=== PATIENT | female | born 1940 | race Caucasian/White ===

== ENCOUNTER → 2018-03-30 11:18 | Outpatient (CLI) | payer MEDICARE, BC, SELFPAY ==
--- NOTE | 2018-03-30 11:22 | DI.RAD.S_ITS ---
PROCEDURE: XR FOOT LT MIN 3V INDICATIONS: LEFT FOOT PAIN TECHNIQUE: 3 views of the foot were acquired. COMPARISON: None. FINDINGS: Bones: Partially visualized distal left fibular fracture. In the left foot itself there are no fractures or dislocations. No suspicious bony lesions. Soft tissues: No tibiotalar joint effusion. Achilles tendon appears normal. IMPRESSION: No acute fractures or dislocations in the left foot. Distal left fibular fracture better seen on today's dedicated left ankle radiographs. Dictated by: Karlos Chaves M.D. on 03/30/2018 at 13:37 Approved by: Karlos Chaves M.D. on 03/30/2018 at 13:38
--- NOTE | 2018-03-30 11:22 | DI.RAD.S_ITS ---
PROCEDURE: XR ANKLE LT MIN 3V INDICATIONS: LEFT ANKLE PAIN TECHNIQUE: 3 views of the ankle were acquired. COMPARISON: None. FINDINGS: Bones: Spiral distal left fibular fractures extending to the ankle mortise. Ankle mortise is otherwise intact. Ankle mortise is normally aligned. No suspicious bony lesions. Soft tissues: No tibiotalar joint effusion. Achilles tendon appears normal. IMPRESSION: Oblique distal left fibular fracture extending to the ankle mortise. Dictated by: Karlos Chaves M.D. on 03/30/2018 at 13:38 Approved by: Karlos Chaves M.D. on 03/30/2018 at 13:39
== END ==
PROVIDERS: Family Provider Family Medicine; PCP Family Medicine; Visit Provider Physician Assistant
DX: S82.432A Displaced oblique fracture of shaft of left fibula, initial encounter for closed fracture (principal); M79.672 Pain in left foot
CPT/HCPCS: 73610; 73630

== ENCOUNTER → 2018-04-17 10:54 | Outpatient (CLI) | payer MEDICARE, OTHER, SELFPAY ==
--- NOTE | 2018-04-17 10:56 | DI.RAD.S_ITS ---
PROCEDURE: XR ANKLE LT MIN 3V INDICATIONS: Fibula fracture TECHNIQUE: 3 views of the ankle were acquired. COMPARISON: [facility], CR, XR ANKLE LT MIN 3V, 03/30/2018, 11:18. FINDINGS: Bones: No dislocations. There is a diagonal fracture previously present 03/30/18 involving the distal fibula, at about the level of the ankle mortise joint as was previously the case Ankle mortise is normally aligned. No suspicious bony lesions. Soft tissues: No tibiotalar joint effusion. Achilles tendon appears normal. IMPRESSION: Distal fibular metadiaphyseal diagonal fracture appears unchanged from the initial set of films identifying an abnormality 03/30/18. Slight blurring of the fracture margins suggests a small degree of interval healing. Dictated by: Moises Walker M.D. on 04/17/2018 at 11:29 Approved by: Moises Walker M.D. on 04/17/2018 at 11:31
--- NOTE | 2018-04-17 10:56 | DI.RAD.S_ITS ---
PROCEDURE: XR FOOT LT MIN 3V INDICATIONS: PAIN AFTER INJURY 2 WEEKS AGO TECHNIQUE: 3 views of the foot were acquired. COMPARISON: [facility], CR, XR FOOT LT MIN 3V, 03/30/2018, 11:18. FINDINGS: Bones: No definite fractures or dislocations. On one of the 3 views there is a subtle lucency at the medial cortex of the base of the fourth metatarsal head, possibly a subacute fracture. No suspicious bony lesions. Soft tissues: No tibiotalar joint effusion. Achilles tendon appears normal. IMPRESSION: The area of injury/maximal tenderness is not defined, and there is a subtle vague lucency at the medial fourth metatarsal head base, potentially a subacute fracture. Please correlate for where the maximal tenderness is related to this particular finding. Note: Please also review the ankle plain film report from today. There is a diagonal fracture involving the distal fibula. Dictated by: Moises Walker M.D. on 04/17/2018 at 11:24 Approved by: Moises Walker M.D. on 04/17/2018 at 11:27
== END ==
PROVIDERS: Family Provider Family Medicine; PCP Family Medicine; Visit Provider Family Medicine
DX: S89.392A Other physeal fracture of lower end of left fibula, initial encounter for closed fracture (principal)
CPT/HCPCS: 73610; 73630

== ENCOUNTER → 2018-10-02 10:31 | Outpatient (CLI) | payer MEDICARE, OTHER, SELFPAY ==
--- NOTE | 2018-10-02 | DI.MG.S_ITS ---
BILATERAL DIGITAL SCREENING MAMMOGRAM 3D/2D WITH CAD: 10/02/2018 CLINICAL: Routine screening. Comparison is made to exams dated: 04/21/2016 mammogram, 01/13/2015 mammogram, and 10/26/2013 mammogram - [facility]. The tissue of both breasts is heterogeneously dense. This may lower the sensitivity of mammography. Current study was also evaluated with a Computer Aided Detection (CAD) system. There are benign post operative findings in both breasts. There also are benign calcifications in both breasts. No significant masses, calcifications, or other findings are seen in either breast. There has been no significant interval change. IMPRESSION: There is no mammographic evidence of malignancy. A 1 year screening mammogram is recommended. This exam was interpreted at Station ID: [id number]. NOTE: For mammograms, a report in lay terms will be sent to the patient. Approximately 15% of breast malignancies will not be visualized mammographically. In the management of a palpable breast mass, a negative mammogram must not discourage biopsy of a clinically suspicious lesion. Electronically Signed By: Milton mancilla/diana:10/03/2018 13:05:25 letter sent: Normal Exam ACR BI-RADS Category 2: Benign Finding(s) 3342F
== END ==
PROVIDERS: Family Provider Family Medicine; PCP Family Medicine; Visit Provider Family Medicine
DX: Z12.31 Encounter for screening mammogram for malignant neoplasm of breast (principal)
CPT/HCPCS: 77063; 77067

== ENCOUNTER → 2021-07-28 12:33 | Outpatient (CLI) | payer BC, MEDICARE, SELFPAY ==
--- NOTE | 2021-07-28 12:35 | DI.MG.S_ITS ---
BILATERAL DIGITAL SCREENING MAMMOGRAM 3D/2D WITH CAD: 07/28/2021 CLINICAL: Routine screening. Comparison is made to exams dated: 10/02/2018 mammogram, 04/21/2016 mammogram, and 01/13/2015 mammogram - [facility]. The tissue of both breasts is heterogeneously dense. This may lower the sensitivity of mammography. Current study was also evaluated with a Computer Aided Detection (CAD) system. There are benign calcifications in both breasts. There also are benign post operative findings in both breasts. No significant masses, calcifications, or other findings are seen in either breast. There has been no significant interval change. IMPRESSION: BENIGN There is no mammographic evidence of malignancy. A 1 year screening mammogram is recommended. This exam was interpreted at Station ID: [id number]. NOTE: For mammograms, a report in lay terms will be sent to the patient. Approximately 15% of breast malignancies will not be visualized mammographically. In the management of a palpable breast mass, a negative mammogram must not discourage biopsy of a clinically suspicious lesion. Electronically Signed By: Elizabeth bowden/diana:07/28/2021 13:09:28 letter sent: Normal Exam ACR BI-RADS Category 2: Benign Finding(s) 3342F
== END ==
PROVIDERS: Family Provider Family Medicine; PCP Family Medicine; Referring Provider Family Medicine; Visit Provider Family Medicine
DX: Z12.31 Encounter for screening mammogram for malignant neoplasm of breast (principal)
CPT/HCPCS: 77063; 77067

== ENCOUNTER → 2023-01-10 11:54 | Outpatient (CLI) | payer BC, MEDICARE, SELFPAY ==
--- NOTE | 2023-01-10 11:56 | DI.RAD.S_ITS ---
PROCEDURE: XR LUMBAR SPINE 2-3V INDICATIONS: back pain TECHNIQUE: 3 views of the lumbar spine were acquired. COMPARISON: [facility], , L-SPINE 2-3 VIEWS, 11/18/2008, 18:20. FINDINGS: Bones: 5 [id number] vertebrae are present. Slight rightward right curvature. Exaggerated lordosis. Grade 1 anterolisthesis L5 on S1 due to a pars defect. Mild disc height loss at L4-5, L1-2 and L5-S1. Soft tissues: Overlying bowel gas pattern is normal. No suspicious soft tissue calcifications. IMPRESSION: Stable degenerative disc disease, predominantly of L4-5 and L5-S1. Grade 1 anterolisthesis of L5 on S1 secondary to pars defect. Dictated by: Sarbjit Anaya M.D. on 01/10/2023 at 13:23 Approved by: Sarbjit Anaya M.D. on 01/10/2023 at 13:28
--- NOTE | 2023-01-10 11:56 | DI.RAD.S_ITS ---
PROCEDURE: XR THORACIC SPINE 3V INDICATIONS: back pain TECHNIQUE: 3 views of the thoracic spine were acquired. COMPARISON: None. FINDINGS: Bones: No fractures or dislocations. No suspicious bony lesions. 12 pairs of ribs are noted, and appear intact where visualized. Mild, multilevel degenerative disc disease. Soft tissues: No paravertebral stripe thickening. IMPRESSION: No acute abnormality. Mild, multilevel degenerative disc disease. Dictated by: Sarbjit Anaya M.D. on 01/10/2023 at 13:29 Approved by: Sarbjit Anaya M.D. on 01/10/2023 at 13:29
[2023-01-10 12:46] LABS: Add Manual Diff / Slide Review NO; Basophils Absolute Auto 0 /uL (0-100); Basophils Percent Auto 0.3 % (0-2); Eosinophils Absolute Auto 100 /uL (0-450); Eosinophils Percent Auto 1.9 % (2-4); Hematocrit 41.1 % (36-46); Hemoglobin 13.8 g/dL (12.0-16.0); Lymphocytes Absolute Auto 2500 /uL (1100-4500); Lymphocytes Percent Auto 33.1 % (25-40); Mean Corpuscular HGB Conc 33.6 % (30-36); Mean Corpuscular Volume 89.4 fL (80-100); Monocytes Absolute Auto 500 /uL (0-900); Monocytes Percent Auto 6.4 % (3-14); Neutrophils Absolute Auto 4300 /uL (1500-7000); Neutrophils Percent Auto 58.3 % (50-75); Platelet Count 198 X10^3/uL (150-400); Red Cell Distribution Width 12.7 % (11.6-14.8); White Blood Cell Count 7.4 X10^3/uL (4.5-11.0)
[2023-01-10 13:00] LABS: Alanine Aminotransferase 19 IU/L (<35); Albumin 4.7 g/dL (3.5-5.0); Albumin Globulin Ratio 1.3 (1.0-2.8); Alkaline Phosphatase 72 U/L (38-126); Aspartate Aminotransferase 24 IU/L (14-36); BUN Creatinine Ratio 43.6 (6-22); Bilirubin Total 0.9 mg/dL (0.2-1.3); Blood Urea Nitrogen 24 mg/dL (7-17); Calcium 9.5 mg/dL (8.4-10.2); Carbon Dioxide 26 mmol/L (22-32); Chloride 104 mmol/L (98-107); Cholesterol 214 mg/dL (140-199); Estimated Glomerular Filt Rate > 60 mL/min (>60); Globulin 3.6 g/dL (1.7-4.1); Glucose 118 mg/dL (80-110); HDL Cholesterol 69 mg/dL (40-60); HEMOLYSIS < 15 (0-50); LDL Cholesterol Calculated 119 mg/dL (<100); Potassium 4.6 mmol/L (3.4-5.1); Sodium 139 mmol/L (137-145); Total Protein 8.3 g/dL (6.3-8.2); Triglycerides 131 mg/dL (35-150)
[2023-01-10 13:30] LABS: Thyroid Stimulating Hormone 1.68 uIU/mL (0.47-4.68)
== END ==
PROVIDERS: Family Provider Family Medicine; PCP Family Medicine; Referring Provider Family Medicine; Visit Provider Family Medicine
DX: M51.37 Other intervertebral disc degeneration, lumbosacral region (principal); M51.34 Other intervertebral disc degeneration, thoracic region; M51.36 Other intervertebral disc degeneration, lumbar region; M43.17 Spondylolisthesis, lumbosacral region; M54.50 Low back pain, unspecified; I10 Essential (primary) hypertension
CPT/HCPCS: 36415; 72072; 72100; 80053; 80061; 84443; 85025

== ENCOUNTER → 2024-04-12 16:17 | Outpatient (CLI) | payer OTHER, SELFPAY ==
--- NOTE | 2024-04-12 16:21 | DI.RAD.S_ITS ---
PROCEDURE: XR THORACIC SPINE 3V INDICATIONS: thoracic back pain TECHNIQUE: 3 views of the thoracic spine were acquired. COMPARISON: [facility], CR, XR THORACIC SPINE 3V, 01/10/2023, 11:54. FINDINGS: Bones: No fractures or dislocations. No suspicious bony lesions. 12 pairs of ribs are noted, and appear intact where visualized. Multilevel degenerative disc space narrowing. Soft tissues: No paravertebral stripe thickening. IMPRESSION: Multilevel degenerative disc space narrowing. Dictated by: Chandrika Rodriguez M.D. on 04/12/2024 at 17:12 Approved by: Chandrika Rodriguez M.D. on 04/12/2024 at 17:12
[2024-04-12 17:33] LABS: Add Manual Diff / Slide Review NO; Basophils Absolute Auto 0 /uL (0-100); Basophils Percent Auto 0.3 % (0-2); Eosinophils Absolute Auto 100 /uL (0-450); Eosinophils Percent Auto 1.6 % (2-4); Hematocrit 34.7 % (36-46); Hemoglobin 11.9 g/dL (12.0-16.0); Lymphocytes Absolute Auto 1500 /uL (1100-4500); Lymphocytes Percent Auto 24.5 % (25-40); Mean Corpuscular HGB Conc 34.3 % (30-36); Mean Corpuscular Hemoglobin 31.8 PG (26-34); Mean Corpuscular Volume 92.6 fL (80-100); Monocytes Absolute Auto 600 /uL (0-900); Monocytes Percent Auto 9.6 % (3-14); Neutrophils Absolute Auto 3800 /uL (1500-7000); Platelet Count 218 X10^3/uL (150-400); Red Blood Cell Count 3.74 X10^6/uL (4.0-5.2)
[2024-04-12 17:57] LABS: Alanine Aminotransferase 25 IU/L (<35); Albumin 4.2 g/dL (3.5-5.0); Albumin Globulin Ratio 1.4 (1.0-2.8); Alkaline Phosphatase 74 U/L (38-126); Aspartate Aminotransferase 28 IU/L (14-36); BUN Creatinine Ratio 38.8 (6-22); Bilirubin Total 0.6 mg/dL (0.2-1.3); Blood Urea Nitrogen 26 mg/dL (7-17); Calcium 9.6 mg/dL (8.4-10.2); Carbon Dioxide 29 mmol/L (22-32); Chloride 107 mmol/L (98-107); Estimated Glomerular Filt Rate > 60 mL/min (>60); Globulin 3.1 g/dL (1.7-4.1); Glucose 123 mg/dL (80-110); HEMOLYSIS 23 (0-50); Potassium 3.4 mmol/L (3.4-5.1); Sodium 140 mmol/L (137-145); Total Protein 7.3 g/dL (6.3-8.2)
== END ==
PROVIDERS: Family Provider Family Medicine; PCP Family Medicine; Referring Provider Family Medicine; Visit Provider Family Medicine
DX: M54.6 Pain in thoracic spine (principal)
CPT/HCPCS: 36415; 72072; 80053; 85025

== ENCOUNTER 2024-05-28 19:05 | Emergency (ER) | payer OTHER, SELFPAY ==
[2024-05-28 19:20] VITALS: BP 153/71; PULSE 91; RESP 16; TEMP 37.4; O2SAT 97; BMI 24.3
[2024-05-28] MEDS: HYDROCODONE/ACET 5/325 TABLET 1 TAB PO (21:03)
[2024-05-28 22:34] VITALS: PULSE 96; O2SAT 97
[2024-05-28 22:35] VITALS: BP 161/70; PULSE 96; O2SAT 98
--- NOTE | 2024-05-28 22:50 | ED_ITS ---
HPI - Back Pain/Injury General Chief Complaint: Back Pain/Injury Stated Complaint: neck and back px Time Seen by Provider: 05/28/24 22:50 Source: patient and family Mode of arrival: Ambulatory Limitations: no limitations History of Present Illness HPI Narrative: 84-year-old female history hypertension, sciatica, herniated discs, patient had a fall in February had a fractured her left humerus persistent back pain. Patient has had persistent pain they have stopped her gabapentin 4 days ago, they have been weaning down her Glasgow she has had a half tablet for about the last 2 weeks. Patient has not had any other witnessed falls. She lives independently but has family with her on all times. Patient has been doing physical therapy on her left upper extremity and this tires her out quite a bit. Family denies any fevers or chills no chest pain or shortness of breath no nausea or vomiting no GI or urinary symptoms. She has had some swelling in her legs that started in February but not worsened. Patient has had x-ray imaging of her thoracic spine but no CT imaging. She presents with her daughters today as they have noted she was becoming more kyphotic and has increased pain when trying to lift her head. No other new neurologic symptoms reported. Related Data Home Medications Medication Instructions Recorded Confirmed ibuprofen 200 mg tablet (Advil) 400 mg PO Q4H 04/12/24 04/12/24 docusate sodium 100 mg capsule 200 mg PO DAILY PRN 05/28/24 (Stool Softener) Previous Rx's Medication Instructions Recorded hydrocodone 5 mg-acetaminophen 325 1 tab PO BID PRN pain #60 tabs 05/07/24 mg tablet furosemide 40 mg tablet 40 mg PO DAILY #90 tabs 05/28/24 hydroxyzine HCl 10 mg tablet See Rx Instructions PO TID PRN 05/28/24 anxiety #30 tabs hydrocodone 5 mg-acetaminophen 325 1 tab PO QID PRN pain #10 tabs 05/29/24 mg tablet lorazepam 0.5 mg tablet (Ativan) 0.5 mg PO TID PRN anxiety #5 tabs 05/29/24 Allergies Allergy/AdvReac Type Severity Reaction Status Date / Time SULFA Allergy Severe rash Uncoded 04/12/24 15:32 Review of Systems Review of Systems ROS Unobtainable: All systems reviewed & are unremarkable except as noted in HPI and below Patient History Medical History Inflamed seborrheic keratosis Low back pain with sciatica Vision disorder Fibroids Herniated disc History of restless legs syndrome (~2004) Acne (~1959) Mumps (~1960) Measles (~1949) Chicken pox Hemorrhoid (~1964) Surgical History History of breast biopsy (~1981) Status post hemorrhoidectomy (~1984) Status post hysterectomy (~1981) Family History Father Stroke Mother No problems noted. Social History marital status: Smoking Status: Never smoker alcohol intake: current Smoking Status: Never smoker Exam Narrative Exam Narrative: GEN: Patient appears in mild distress. HEAD: No evidence of trauma, no raccoon/[place] sign. NECK: Nontender, painless range of motion, trachea midline EYES: PERRLA, EOMI ENT: External inspection normal, trachea is midline, TM's are normal no hemotypanum, Nares are clear, no septal hematoma, no dental or oral injury, airway is normal and with normal occlusion, No bony tenderness RESP: Chest is nontender and has symmetric movement, no ecchymosis, breath sounds are normal no crackles, wheezes or rales CVS: Heart sounds are normal, no murmur noted, No JVD. ABG/GI: Nontender, soft, normal bowel sounds, no distention, no organomegaly, pelvic rock is [negative/positive] GENIT, RECTAL: Normal external inspection, normal rectal tone, [prostate is in normal position or no vaginal bleeding] NEURO: Oriented AOx3, neuro is grossly intact, sensation and motor is normal all 4 extremities moving, cranial nerves II through XII are intact, GCS is[default value] PSYCH: Normal mood and affect SKIN: Intact, warm and dry, no crepitus and without decubitus BACK: No CVA tenderness, no cervical vertebral tenderness patient has some mild midthoracic tenderness, no lumbar tenderness, patient is quite kyphotic, she is able to flex and extend her neck and rotate. No step-off's, no crepitus EXT: Patient does have little bit difficulty lifting her left upper extremity they states been like that is since her humeral fracture in February she was following with PT. [employer] are equal bilaterally. Hips are nontender, trace pedal edema bilaterally. Patient is able to lift both legs independently without issue. Unable to lift her right arm without issue. She can lean forward without much issue. Initial Vital Signs Initial Vital Signs: Vital Signs Temperature 99.3 F 05/28/24 19:20 Pulse Rate 91 H 05/28/24 19:20 Respiratory Rate 16 05/28/24 19:20 Blood Pressure 153/71 H 05/28/24 19:20 Pulse Oximetry 97 05/28/24 19:20 Oxygen Delivery Method Room Air 05/28/24 19:20 Course Orders Ordered: ED Orders 05/28/24 23:19 CT cervical spine wo con Stat CT head/brain wo con Stat CT thoracic spine wo con Stat Discontinued Medications Hydrocodone Bitart/Acetaminophen (Hydrocodone/Acet 5/325 Tablet) 1 tab PO NOW ONE Stop: 05/28/24 20:59 Last Admin: 05/28/24 21:03 Dose: 1 tab Documented By: ES Lorazepam (Lorazepam 0.5 Mg Tablet) 0.5 mg PO NOW ONE Stop: 05/28/24 23:20 Last Admin: 05/28/24 23:37 Dose: 0.5 mg Documented By: SB Vital Signs Vital signs: Vital Signs - 8 hr 05/28/24 22:34 05/28/24 22:35 05/28/24 22:35 Pulse Rate 96 H 96 H Respiratory Rate Blood Pressure 161/70 H Pulse Oximetry 97 98 Oxygen Delivery Method 05/28/24 23:00 05/28/24 23:33 05/29/24 00:36 Pulse Rate 104 H 98 H 87 Respiratory Rate Blood Pressure Pulse Oximetry 97 98 98 Oxygen Delivery Method 05/29/24 00:37 05/29/24 00:37 05/29/24 00:50 Pulse Rate 87 87 Respiratory Rate 16 Blood Pressure 141/64 H 141/64 H Pulse Oximetry 98 98 Oxygen Delivery Method Room Air MDM - Back Pain/Injury Medical Records Medical records narrative: After discussion with patient and they are concerned about her worsening kyphosis no known recent fractures they are unsure if she ever had any imaging of her cervical spine or lumbar spine after her fall other than x-rays here locally. Discussed with patient family obtain head CT C-spine and thoracic spine, her pain has increased somewhat but she has also had a significant decrease with stopping her gabapentin 4 days ago and weaning down her [place] as well. CT head Cervical spine CT Thoracic spine CT [facility] Narrative Medical decision making narrative: Patient had a dose of Glasgow here, she asked for something for anxiety and was given a 0.5 mg Ativan. Patient's family had called she has had slowly worsening kyphosis, weakness and generally discomfort in her neck and thoracic spine. Patient has not had any recent trauma or injury but did have a fall in February that caused humeral fracture and has been following with PT. She has been following regularly with her physician they have been weaning down her medications which may explain her increase in pain but family notes she just becomes more kyphotic over time. No acute neurologic changes shared at bedside by patient or family. Head CT shows no acute intracranial change, cerebral volume loss for age resultant. Cervical spine shows no displaced fracture or traumatic subluxation. CT thoracic spine shows no compression deformity there is osteoporosis by Hounsfield unit criteria. Discussed with patient and family decrease the gabapentin could potentially worsen patient's symptoms in the last 4 days. Sometimes this medication can have little bit of withdrawal affect although does not seem to be the case for the patient. Discussed can do a short increased back to 1 tablet of Glasgow versus 1/2 and then try weaning down. Would recommend they follow up with your physician about the best way to do this. Family decided to hold off on restarting gabapentin did have some side effects. She had have a dose of oral Ativan 0.5 mg which was helpful so we will give a very brief prescription for this. They have calls out to Dr. Mclean's associates as he is out of town but they will talk over medication management with them. Discharge Plan Departure Patient Disposition: Home Clinical Impression: Cervical pain (neck), Back pain, thoracic Activity Restrictions/Additional Instructions: Please follow-up with your physician for recheck. Talk with your physician about managing her medications, in the short term you can increase your Glasgow back to 1 tablet instead of 1/2 tablet. This medication can make you sleepy do not drive, perform hazardous activities or make any major decisions while taking it. This medication will make you constipated please take a stool softener once to twice daily until stools are soft and regular. If helpful you can take Ativan tablet every 8 hours for muscle relaxation. This medication in combination with narcotics can make you very sleepy and increase your fall risk. Use with caution. Prescription sent to [facility]. Your head CT, cervical spine and thoracic do not show any compression fractures or major changes to the bone. There are degenerative changes present changes that are expected with age. Please return for new changes, new numbness tingling or weakness, new loss of bowel or bladder control or other new or concerning changes. Prescriptions: New hydrocodone-acetaminophen 5-325 mg tablet 1 tab PO QID PRN (Reason: pain) Qty: 10 0RF lorazepam [Ativan] 0.5 mg tablet 0.5 mg PO TID PRN (Reason: anxiety) Qty: 5 0RF No Action docusate sodium [Stool Softener] 100 mg capsule 200 mg PO DAILY PRN Rx Instructions: a few times a week furosemide 40 mg tablet 40 mg PO DAILY Qty: 90 1RF hydroxyzine HCl 10 mg tablet See Rx Instructions PO TID PRN (Reason: anxiety) Qty: 30 0RF Rx Instructions: Take 1 or 2 tablets up to 3 times a day as needed for anxiety ibuprofen [Advil] 200 mg tablet 400 mg PO Q4H hydrocodone-acetaminophen 5-325 mg tablet 1 tab PO BID PRN (Reason: pain) Qty: 60 0RF Referrals: Thad Mclean MD [Primary Care Provider] - Stand Alone Forms: Patient Portal/API
[2024-05-28 23:00] VITALS: PULSE 104; O2SAT 97
--- NOTE | 2024-05-28 23:19 | DI.CT.S_ITS ---
PROCEDURE: CT CERVICAL SPINE WO CON INDICATIONS: remote fall (february), worsening pain, worsenin kyphosis. TECHNIQUE: Noncontrast 3 mm thick sections acquired from the skull base to the T4 level. Sagittal and coronal reformats were then constructed. For radiation dose reduction, the following was used: automated exposure control, adjustment of mA and/or kV according to patient size. COMPARISON: None. FINDINGS: Image quality: Excellent. Bones: No fractures or dislocations. Visualized superior ribs are intact. Mild to moderate, multilevel degenerative disc disease and facet arthrosis. Soft tissues: Prevertebral soft tissues are normal in thickness. No paravertebral hematomas. No apical pneumothoraces. IMPRESSION: No displaced fracture or traumatic subluxation. Dictated by: Sarbjit Anaya M.D. on 05/28/2024 at 23:55 Approved by: Sarbjit Anaya M.D. on 05/28/2024 at 23:56
--- NOTE | 2024-05-28 23:19 | DI.CT.S_ITS ---
PROCEDURE: CT HEAD/BRAIN WO CON INDICATIONS: remote fall (february), worsening pain, worsenin kyphosis. TECHNIQUE: Noncontrast 4.5 mm thick angled axial sections acquired from the foramen magnum to the vertex, with coronal and sagittal reformats. For radiation dose reduction, the following was used: automated exposure control, adjustment of mA and/or kV according to patient size. COMPARISON: None. FINDINGS: Image quality: Diagnostic. CSF spaces: Basal cisterns are patent. No extra-axial fluid collections. The ventricles are symmetric in size and shape. Brain: No intracranial bleeds or masses. There is cerebral volume loss for age, with resultant ventricular and sulcal prominence. There are periventricular and deep white matter chronic small vessel ischemic changes. There is intracranial internal carotid artery atherosclerosis. Skull and face: Calvarium and visualized facial bones appear intact, without suspicious lesions. Sinuses: Visualized sinuses and mastoids are clear. IMPRESSION: No acute intracranial pathology. Dictated by: Sarbjit Anaya M.D. on 05/28/2024 at 23:54 Approved by: Sarbjit Anaya M.D. on 05/28/2024 at 23:54
--- NOTE | 2024-05-28 23:19 | DI.CT.S_ITS ---
PROCEDURE: CT THORACIC SPINE WO CON INDICATIONS: remote fall (february), worsening pain, worsenin kyphosis. TECHNIQUE: Noncontrast 3 mm thick sections acquired through the region of interest in the thoracic spine. Sagittal and coronal reformats were then constructed. For radiation dose reduction, the following was used: automated exposure control. COMPARISON: None. FINDINGS: Image quality: Excellent. Bones: There is normal overall bony alignment. No acute vertebral body compression fractures. No suspicious sclerotic or lytic bony lesions. Central spinal canal is of normal overall caliber. Osteoporosis by Hounsfield units criteria. Soft tissues: No paravertebral masses or hematomas. Visualized posteromedial lungs appear clear. IMPRESSION: No compression deformity. Osteoporosis by Hounsfield units criteria. Dictated by: Sarbjit Anaya M.D. on 05/28/2024 at 23:56 Approved by: Sarbjit Anaya M.D. on 05/28/2024 at 23:57
[2024-05-28 23:33] VITALS: PULSE 98; O2SAT 98
[2024-05-28] MEDS: LORazepam 0.5 MG TABLET PO (23:37)
[2024-05-29 00:36] VITALS: PULSE 87; O2SAT 98
[2024-05-29 00:37] VITALS: BP 141/64; PULSE 87; O2SAT 98
[2024-05-29 00:50] VITALS: BP 141/64; PULSE 87; RESP 16; O2SAT 98
== END 2024-05-29 00:52 | disposition home or self-care (01) ==
PROVIDERS: Emergency Provider Emergency Medicine; Family Provider Family Medicine; PCP Family Medicine
DX: M54.2 Cervicalgia (principal); M54.6 Pain in thoracic spine
CPT/HCPCS: 70450; 72125; 72128; 99283; 99284

== ENCOUNTER 2024-06-02 04:26 | Inpatient (IN) | payer OTHER, SELFPAY ==
[2024-06-02] VITALS (21 sets, daily range): BP systolic 108–198; BP diastolic 42–85; PULSE 81–101; RESP 16–18; TEMP 35.9–36.6; O2SAT 92–99; BMI 24.2
--- NOTE | 2024-06-02 04:34 | ED.GENADULT ---
HPI - General Adult General Chief complaint: Weakness Stated complaint: shoulder- back pain Time Seen by Provider: 06/02/24 04:32 History of Present Illness HPI narrative: Previously healthy 84-year-old woman with shoulder fracture in February requiring surgical intervention. Since then she has been having increasing pain along her spine. Has been on narcotics currently at 3 Vicodin daily, 1 point had been on gabapentin which has recently been discontinued. She has been having increasing anxiety due to pain, anticipation of pain and now likely exacerbated by discontinuing gabapentin. She feels she is crawling out of her skin and her description of her symptoms very much sound like withdrawal rather than severe anxiety. She does not have a lifetime history of anxiety, her family reports that these behaviors are quite new. Because of her pain, recent ER visits and medical care she has not been sleeping well at night has had multiple evenings where she is awake most of the night in the emergency department. Would likely benefit from melatonin 1 mg in the evening simply to reset circadian rhythms. It will be important to set expectations that this is not a sleeping pill with an expected immediate result rather to be considering more as a vitamin to supplement healthy sleep patterns and circadian rhythms Patient does have lidocaine patches that have been helpful for her spine pain however was told that she could not use heat or cold with these so she has been declining to use a lidocaine patches. She has also stopped using heating pad which has been a go to treatment for her. Long discussion regarding the safety of using ice with these patches. The reason to avoid heating pads is that they can potentially heat the plastic enough that they will cause significant almonte. Regarding her pain control. She is currently on tablets of 5 mg Vicodin 3 times a day. This has been slightly effective in controlling her overall back pain. She sometimes will use ibuprofen. She is not on a chronic anti-inflammatory. Use of medication has been inconsistent and likely exacerbating her overall anxiety Anxiety, again I suspect that this more a side effect of withdrawal and medication as well as sleep deprivation was recently started on hydroxyzine and has been using up to 4 pills daily she took total of 4 doses of hydroxyzine yesterday and is complaining of drowsiness, ataxia, weakness, headache, increasing agitation and nausea all of which are common reactions to hydroxyzine. I think at 84 this is not going to be the drug of choice for her. She was seen in the emergency room on July 28 with similar complaints of pain and anxiety with thoracic head and cervical CT scans done. There are no significant abnormalities appreciated. Patient comes in this morning complaining of increasing anxiety, pain and weakness such that she had difficulty getting out of bed and walking to the bathroom this morning. No reports of fevers, nausea, vomiting or diarrhea 42 minute discussion with her family regarding polypharmacy and worsening anxiety, pain control weakness and overall agitation. They do have a follow up appointment with her primary care physician on the . They note that their entire family are not ?pill takers?. Up until the broken shoulder patient had been taking vitamins as her only medications. Related Data Home Medications Medication Instructions Recorded Confirmed ibuprofen 200 mg tablet (Advil) 400 mg PO Q4H 04/12/24 04/12/24 docusate sodium 100 mg capsule 200 mg PO DAILY PRN 05/28/24 (Stool Softener) Previous Rx's Medication Instructions Recorded hydrocodone 5 mg-acetaminophen 325 1 tab PO BID PRN pain #60 tabs 05/07/24 mg tablet furosemide 40 mg tablet 40 mg PO DAILY #90 tabs 05/28/24 hydroxyzine HCl 10 mg tablet See Rx Instructions PO TID PRN 05/28/24 anxiety #30 tabs hydrocodone 5 mg-acetaminophen 325 1 tab PO QID PRN pain #10 tabs 05/29/24 mg tablet lorazepam 0.5 mg tablet (Ativan) 0.5 mg PO TID PRN anxiety #5 tabs 05/29/24 Allergies Allergy/AdvReac Type Severity Reaction Status Date / Time SULFA Allergy Severe rash Uncoded 04/12/24 15:32 Review of Systems Review of Systems Narrative: Pertinent positive and negative findings as per HPI Patient History Medical History Inflamed seborrheic keratosis Low back pain with sciatica Vision disorder Fibroids Herniated disc History of restless legs syndrome (~2004) Acne (~1959) Mumps (~1960) Measles (~194) Chicken pox Hemorrhoid (~1964) Surgical History History of breast biopsy (~1981) Status post hemorrhoidectomy (~1984) Status post hysterectomy (~1981) Family History Father Stroke Mother No problems noted. Social History marital status: Smoking Status: Never smoker alcohol intake: current Smoking Status: Never smoker Exam Initial Vital Signs Initial Vital Signs: Vital Signs Temperature 97.5 F L 06/02/24 04:36 Pulse Rate 91 H 06/02/24 04:36 Respiratory Rate 18 06/02/24 04:36 Blood Pressure 154/70 H 06/02/24 04:36 Pulse Oximetry 96 06/02/24 04:36 Oxygen Delivery Method Room Air 06/02/24 04:36 General: Older chronically ill-appearing woman. Increasing kyphosis, HEENT: Moist mucous membranes, normal sclera with reactive pupils, Neck: No point tenderness Respiratory: Lungs are clear to auscultation, no wheezing no rales no rhonchi. Full and symmetrical air movement Cardiac: Regular rate and rhythm no murmurs no bruits Abdomen: Soft, nontender, good bowel tones, no flank pain Skin: Warm and dry, no rashes Neurologic: Globally weak Grossly neurologically intact with no obvious asymmetries or abnormalities Extremities: No trauma, mild bilateral edema right greater than left Psych: Agitated continuing to complain of anxiety, a sensation that she is crawling out of her skin and persistently requesting assistance Course Orders Ordered: ED Orders 06/02/24 04:36 EKG-12 Lead Stat 06/02/24 05:50 Complete Blood Count AUTO DIFF Stat Comprehensive Metabolic Panel Stat Discontinued Medications Meloxicam (Meloxicam 7.5 Mg Tablet) 7.5 mg PO NOW ONE Stop: 06/02/24 05:32 Last Admin: 06/02/24 05:44 Dose: 7.5 mg Documented By: MARIO Vital Signs Vital signs: Vital Signs - 8 hr 06/02/24 04:36 Temperature 97.5 F L Pulse Rate 91 H Respiratory Rate 18 Blood Pressure 154/70 H Pulse Oximetry 96 Oxygen Delivery Method Room Air Medical Decision Making Lab Data 06/02/24 05:50 06/02/24 05:50 Labs: Lab Results 06/02/24 Range/Units 05:50 WBC 4.5 (4.5-11.0) X10^3/uL RBC 3.69 L (4.0-5.2) X10^6/uL Hgb 11.5 L (12.0-16.0) g/dL Hct 33.7 L (36-46) % MCV 91.4 (80-100) fL MCH 31.3 (26-34) PG MCHC 34.3 (30-36) % RDW 12.9 (11.6-14.8) % Plt Count 174 (150-400) X10^3/uL Neut % (Auto) 59.7 (50-75) % Lymph % (Auto) 26.2 (25-40) % [place] % (Auto) 11.6 (3-14) % Eos % (Auto) 1.5 L (2-4) % Baso % (Auto) 1.0 (0-2) % Neut # (Auto) 2700 (9644-8309) /uL Lymph # (Auto) 1200 (9712-7871) /uL [place] # (Auto) 500 (0-900) /uL Eos # (Auto) 100 (0-450) /uL Baso # (Auto) 0 (0-100) /uL Sodium 138 (137-145) mmol/L Potassium 2.8 L (3.4-5.1) mmol/L Chloride 103 (98-107) mmol/L Carbon Dioxide 30 (22-32) mmol/L BUN 22 H (7-17) mg/dL Creatinine 0.56 (0.52-1.04) mg/dL Estimated GFR > 60 (>60) mL/min BUN/Creatinine Ratio 39.3 H (6-22) Glucose 125 H (80-110) mg/dL Calcium 9.1 (8.4-10.2) mg/dL Total Bilirubin 0.8 (0.2-1.3) mg/dL AST 32 (14-36) IU/L ALT 21 (<35) IU/L Alkaline Phosphatase 66 (38-126) U/L Total Protein 6.6 (6.3-8.2) g/dL Albumin 3.9 (3.5-5.0) g/dL Globulin 2.7 (1.7-4.1) g/dL Albumin/Globulin Ratio 1.4 (1.0-2.8) MDM Narrative Medical decision making narrative: CC: Increasing weakness this morning inability to walk. Complicating co-morbidities:Recent shoulder fracture and surgery with complete recovery subsequent increasing spine complaints from worsening kyphosis. Polypharmacy with side effects and withdrawal symptoms due to medication management Data collected from: patient, medical records, , 2 daughters and son-in-law Social determinants of health that may influence the patients condition: Symptoms have been escalating over the last number of months and all do seem to correlate with medications added to help with kyphotic thoracic pain Medical records reviewed: ER note from May 28 reviewed Primary care notes from May 12 reviewed: Pain management schedule is redo decrease hydrocodone to twice a day and then once a day over the next 2 to 3 weeks. Scheduled Tylenol three times a day, scheduled ibuprofen three times a day and scheduled gabapentin three times a day. We will reevaluate in 4 weeks. And that. Hopefully we can stop the ibuprofen and the hydrocodone. She has a follow-up appointment with her orthopedic surgeon. She will continue to do home therapy programs. Differential considered: Polypharmacy, gabapentin withdrawal symptoms, anxiety secondary to polypharmacy, electrolyte abnormalities. Given an CT scans done 5 days ago do not suspect new compression fractures or bony abnormalities Exam documented above, pertinent findings include: Patient appears to be suffering. She does not have point tenderness she does have slight weakness, 2+ low lower extremity edema on the right 1+ on the left. Well-perfused Lab Test results independently reviewed as above. Pertinent findings: CBC is unremarkable Chemistries show a potassium significantly low at 2.8 which may well explain the increasing weakness she is noticing. Appropriate renal function. Imaging studies independently reviewed: CT scans of the head cervical spine and thoracic spine done on May 28 reviewed. Treatments: Patient is given oral potassium, IV potassium, started on meloxicam Discussion: 84-year-old woman with humeral fracture in February. This seems to have subsequently healed now complaining of upper thoracic and kyphotic back pain likely secondary to musculoskeletal adaptations from her arm fracture. She has had multiple medications added to help manage symptoms. 1. gabapentin, seemed to be causing more problems was weaned off completely discontinued a little more than a week ago and I believe she is having significant side effects with increasing agitation and increasing pain perception 2. increasing anxiety suspect that this is related to overall increased pain, sleep deprivation from pain and side effect of gabapentin. Ativan was tried and seemed to cause too much somnolence. She was recently given hydroxyzine. Over the last 48 hours she is taken about 8 pills and comes in with significant weakness and multiple complaints consistent with hydroxyzine side effects. 3. At some point within the last 1-2 months she was started on Lasix to help with lower extremity edema. While this has helped with lower extremity edema it likely is now responsible for her current potassium of 2.8 which is likely contributing to her global weakness and ataxia. Given the complexities of her current complaints as well as polypharmacy and side effects I am going to recommend hospitalization for her hypokalemia to correct this and find appropriate dosing to complement her Lasix which does seem to be helping with her lower extremity edema 4. Anxiety. I am not sure that there truly is an appropriate medication for her. Supportive care as she completely weaned off the gabapentin I believe we will be helpful. Benzos likely going to be too sedating and will not be able to be mixed with narcotics. 5. Overall pain control. Her daughter notes she has been inconsistent use only using her pain medications. Going to recommend that daily meloxicam be tried rather than as needed ibuprofen. Patient does not believe that Tylenol makes any difference for her. She tends to not take this. She currently is taking 3 5 mg hydrocodones a day and when she does so pain is moderately relieved. I would recommend that she continue with the 3 hydrocodone until the side effects of discontinuing the gabapentin are essentially alleviated. 6. Patient is complaining of pain over her bony spine prominence at multiple areas. No compression fractures were found with CT scans on May 28. She does have lidocaine patches available suggested that these be cut in half and placed along midline portion of her spine. She can use cold pack as needed associated with these particularly if it is off center and more focused on muscles. 7. will continue to benefit from physical therapy as outlined by Dr. Mclean her primary care physician 8. Circadian dysrhythmia, we will recommend 1 mg of melatonin at night for the next at least 2 weeks after she has been discharged from the hospital to try and improve overall circadian rhythms, sleep patterns and self healing potential Currently, we will recommend at least observation stay for potassium replacement given her significant weakness and inability to walk as of this morning. We will review all findings with her family. Discussion as outlined above was printed often discussed with her family. Care is reviewed with Dr. Vu who will be admitting the patient. Findings reviewed with the patient who is very agreeable to recommended changes. 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
--- NOTE | 2024-06-02 04:36 | EKG_ITS ---
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
--- NOTE | 2024-06-02 04:58 | PC.NURSE ---
Pt was able to sit herself up to sit on side of bed. Pt assisted back into bed and positioned for comfort.
[2024-06-02] MEDS: MELOXICAM 7.5 MG TABLET PO (05:44)
--- NOTE | 2024-06-02 05:54 | PC.NURSE ---
[employer] COMM[employer]ITY MANAGER note: Patient called out that she needed to use the bathroom. I asked if she wanted to go to the bathroom? Or the [facility]? Patient said bathroom. Patient was one person up, as I held her hand. She said she is bad on her feet when she walked. Patient needed little assistance getting to the bathroom.
[2024-06-02 05:58] LABS: Add Manual Diff / Slide Review NO; Basophils Absolute Auto 0 /uL (0-100); Eosinophils Absolute Auto 100 /uL (0-450); Eosinophils Percent Auto 1.5 % (2-4); Hematocrit 33.7 % (36-46); Hemoglobin 11.5 g/dL (12.0-16.0); Lymphocytes Absolute Auto 1200 /uL (1100-4500); Lymphocytes Percent Auto 26.2 % (25-40); Mean Corpuscular HGB Conc 34.3 % (30-36); Mean Corpuscular Hemoglobin 31.3 PG (26-34); Mean Corpuscular Volume 91.4 fL (80-100); Monocytes Absolute Auto 500 /uL (0-900); Monocytes Percent Auto 11.6 % (3-14); Neutrophils Absolute Auto 2700 /uL (1500-7000); Neutrophils Percent Auto 59.7 % (50-75); Platelet Count 174 X10^3/uL (150-400); Red Blood Cell Count 3.69 X10^6/uL (4.0-5.2); Red Cell Distribution Width 12.9 % (11.6-14.8); White Blood Cell Count 4.5 X10^3/uL (4.5-11.0)
[2024-06-02 06:10] LABS: Alanine Aminotransferase 21 IU/L (<35); Albumin 3.9 g/dL (3.5-5.0); Albumin Globulin Ratio 1.4 (1.0-2.8); Alkaline Phosphatase 66 U/L (38-126); Aspartate Aminotransferase 32 IU/L (14-36); BUN Creatinine Ratio 39.3 (6-22); Bilirubin Total 0.8 mg/dL (0.2-1.3); Blood Urea Nitrogen 22 mg/dL (7-17); Calcium 9.1 mg/dL (8.4-10.2); Carbon Dioxide 30 mmol/L (22-32); Chloride 103 mmol/L (98-107); Estimated Glomerular Filt Rate > 60 mL/min (>60); Globulin 2.7 g/dL (1.7-4.1); Glucose 125 mg/dL (80-110); HEMOLYSIS < 15 (0-50); Potassium 2.8 mmol/L (3.4-5.1); Sodium 138 mmol/L (137-145); Total Protein 6.6 g/dL (6.3-8.2)
[2024-06-02] MEDS: POTASSIUM CHLORIDE IN WATER 10 MEQ/100 ML PIGGYBACK 100 MEQ IV ×6 (07:36→13:12)
[2024-06-02] MEDS: POTASSIUM CHLORIDE 20 MEQ TAB PO (07:36)
[2024-06-02] MEDS: SODIUM CHLORIDE 0.9% 1,000 ML 125 ML IV (07:36)
[2024-06-02] MEDS: LIDOCAINE 5% PATCH 1 EACH TOP (08:14)
[2024-06-02] MEDS: HYDROCODONE/ACET 5/325 TABLET 1 TAB PO ×3 (08:15→17:33)
[2024-06-02] MEDS: FUROSEMIDE 40 MG TABLET PO (08:15)
[2024-06-02] MEDS: DOCUSATE 100 MG CAPSULE PO (08:32)
--- NOTE | 2024-06-02 10:44 | P.HP_ITS ---
History of Present Illness History of Present Illness Date Patient Seen: 06/02/24 Time Patient Seen: 10:44 Date of Onset of Symptoms: 05/24/24 Chief complaint: shoulder- back pain Narrative: Patient is a 84-year-old female patient of Dr. Mclean apparently had been in relatively good state of health until 3 months ago when she broke her arm with a fall. Since that time she has been having increasing issues with back pain pain control and anxiety. Apparently they have been addressing this with different medication which has been very difficult. Pain control has been with Vicodin with gabapentin and high dose no anti-inflammatories except ibuprofen. Does not seem to be really helping. She has had no other changes. Apparently she just acutely stopped her gabapentin not too long ago. Has had increased anxiety. For the last week. She has been tried on multiple antianxiety medicines and that has been difficult to. Otherwise she has no other significant change or complaint. Apparently she has not had a history of anxiety in the past. With no other change. Patient been complaint is her back. Which has been persistently with an issue. Apparently she has no history of congestive heart failure but was having edema was started on Lasix recently. [facility] Medical History Inflamed seborrheic keratosis Low back pain with sciatica Vision disorder Fibroids Herniated disc History of restless legs syndrome (~2004) Acne (~1959) Mumps (~1960) Measles (~194) Chicken pox Hemorrhoid (~1964) Surgical History History of breast biopsy (~1981) Status post hemorrhoidectomy (~1984) Status post hysterectomy (~1981) Family History Father Stroke Mother No problems noted. Social History marital status: household members: spouse Smoking Status: Never smoker alcohol intake: never Meds Home Medications and Allergies Home Medications Medication Instructions Recorded Confirmed Type ibuprofen 200 mg tablet (Advil) 400 mg PO Q4H 04/12/24 04/12/24 History hydrocodone 5 mg-acetaminophen 325 1 tab PO BID PRN pain #60 tabs 05/07/24 05/07/24 Rx mg tablet docusate sodium 100 mg capsule 200 mg PO DAILY PRN 05/28/24 History (Stool Softener) furosemide 40 mg tablet 40 mg PO DAILY #90 tabs 05/28/24 Rx hydroxyzine HCl 10 mg tablet See Rx Instructions PO TID PRN 05/28/24 Rx anxiety #30 tabs hydrocodone 5 mg-acetaminophen 325 1 tab PO QID PRN pain #10 tabs 05/29/24 Rx mg tablet lorazepam 0.5 mg tablet (Ativan) 0.5 mg PO TID PRN anxiety #5 tabs 05/29/24 Rx Allergies Allergy/AdvReac Type Severity Reaction Status Date / Time Sulfa (Sulfonamide Allergy Severe Rash Verified 06/02/24 10:42 Antibiotics) Review of Systems Review of Systems Narrative: Negative except above Exam Vital Signs (past 8 hours): - 06/02/24 04:30 06/02/24 04:30 06/02/24 04:36 Temperature 97.5 F L Pulse Rate 90 91 H Respiratory Rate 18 Blood Pressure 154/70 H 154/70 H Pulse Oximetry 97 96 Oxygen Delivery Method Room Air 06/02/24 05:00 06/02/24 05:30 06/02/24 06:00 Temperature Pulse Rate 95 H 84 81 Respiratory Rate Blood Pressure Pulse Oximetry 97 96 97 Oxygen Delivery Method 06/02/24 06:30 06/02/24 07:00 06/02/24 07:26 Temperature Pulse Rate 89 101 H 95 H Respiratory Rate Blood Pressure Pulse Oximetry 98 97 97 Oxygen Delivery Method 06/02/24 07:26 06/02/24 07:30 06/02/24 07:41 Temperature Pulse Rate 91 H Respiratory Rate Blood Pressure 177/77 H 198/85 H Pulse Oximetry 97 Oxygen Delivery Method 06/02/24 07:41 06/02/24 07:45 06/02/24 07:45 Temperature Pulse Rate 95 H 92 H Respiratory Rate Blood Pressure 192/83 H Pulse Oximetry 97 97 Oxygen Delivery Method 06/02/24 08:00 06/02/24 08:00 06/02/24 08:15 Temperature Pulse Rate 94 H Respiratory Rate Blood Pressure 188/82 H 182/78 H Pulse Oximetry 97 Oxygen Delivery Method 06/02/24 08:15 06/02/24 08:30 06/02/24 08:30 Temperature Pulse Rate 92 H 90 Respiratory Rate Blood Pressure 178/75 H Pulse Oximetry 97 98 Oxygen Delivery Method 06/02/24 08:45 06/02/24 08:45 06/02/24 09:00 Temperature Pulse Rate 87 Respiratory Rate Blood Pressure 175/76 H 161/71 H Pulse Oximetry 98 Oxygen Delivery Method 06/02/24 09:00 06/02/24 09:15 06/02/24 09:15 Temperature Pulse Rate 86 86 Respiratory Rate Blood Pressure 157/70 H Pulse Oximetry 98 98 Oxygen Delivery Method Oxygen Delivery Method Room Air Narrative Exam Narrative: Alert female lying comfortably in bed in no acute distress HEENT exam is unremarkable neck supple without adenopathy JVD or bruits lungs are clear heart is regular rate and rhythm abdomen is soft positive bowel sounds nontender. Extremities without cyanosis or clubbing. She does have 1+ to trace edema. Back with lidocaine patch on but she has have some mild thoracic tenderness diffusely. Nothing specific neurologic exam is on focal Objective Labs 06/02/24 05:50 06/02/24 05:50 Labs: Laboratory Results - last 24 hr 06/02/24 05:50 WBC 4.5 RBC 3.69 L Hgb 11.5 L Hct 33.7 L MCV 91.4 MCH 31.3 MCHC 34.3 RDW 12.9 Plt Count 174 Neut % (Auto) 59.7 Lymph % (Auto) 26.2 [place] % (Auto) 11.6 Eos % (Auto) 1.5 L Baso % (Auto) 1.0 Neut # (Auto) 2700 Lymph # (Auto) 1200 [place] # (Auto) 500 Eos # (Auto) 100 Baso # (Auto) 0 Sodium 138 Potassium 2.8 L Chloride 103 Carbon Dioxide 30 BUN 22 H Creatinine 0.56 Estimated GFR > 60 BUN/Creatinine Ratio 39.3 H Glucose 125 H Calcium 9.1 Total Bilirubin 0.8 AST 32 ALT 21 Alkaline Phosphatase 66 Total Protein 6.6 Albumin 3.9 Globulin 2.7 Albumin/Globulin Ratio 1.4 Assessment & Plan Assessment & Plan narrative: Hypokalemia. Patient with history of recently starting in the last couple of weeks which is a little unclear on Lasix for her edema she was noted to have marked low potassium she will be placed on tele she will have 6 replacements today IV and will have rechecked at 4:00 a.m. this afternoon. Will need to be on replacement as outpatient if sugars are going to continue her Lasix I am going to hold it today will see what it looks like tomorrow and will go from there. Patient understands questions answered Anxiety. Somewhat new. Combination of probable pain control and maybe polypharmacy or at least change in pharmacy. She has not been responsive to much. We will try not to give her anything for this unless she how she does but we need to try some Ativan if she needs it while in the hospital. Will see how things go and follow from there. If persistent may need to consider SSRI but this would be sent more primary care doctor and her will decide as outpatient unless there is a significant change. Back pain. Pretty significant and longstanding. Apparently maybe withdrawing from gabapentin hard to know. Will treat with scheduled pain medicines for now will add 7.5 mg of meloxicam given overall health and will follow. Re-evaluate in a.m.. Physical therapy today to evaluate her ability to ambulate. Pedal edema. Will see how she does. At this point I am going to hold her Lasix but probably will need to restart it. Depending on how things go. No other change. Patient understands. Will call if change. Code status full. GI prophylaxis no need to make changes. Do not believe she needs coverage at this time. DVT prophylaxis. Patient will be placed on Lovenox Disposition. Patient probably will be here for 48 hours based on current presentation and concern for potassium. High risk for recurrence and will need to make sure stable. High risk for complications. Patient understands will call if change. Time-Based Coding :: [TOTAL MINUTES] spent with patient and on the chart (including review of chart, obtaining history, exam, reviewing outside data, placing orders, documenting exam and treatment plan, and counseling patient) on [DATE]. Quality VTE Deep Vein Thrombosis/Pulmonary Embolism Present on Admission: No
[2024-06-02] MEDS: LORazepam 0.5 MG TABLET PO ×2 (11:13→21:50)
--- NOTE | 2024-06-02 11:25 | PT.IIE ---
Surgical History (Last Reviewed 06/02/24 @ 10:46 by Robert Vu MD) History of breast biopsy (~1981) Status post hemorrhoidectomy (~1984) Status post hysterectomy (~1981) Medical History (Last Reviewed 06/02/24 @ 10:46 by Robert Vu MD) Acne (~1959) Chicken pox Fibroids Hemorrhoid (~1964) Herniated disc History of restless legs syndrome (~2004) Inflamed seborrheic keratosis Low back pain with sciatica Measles (~1949) Mumps (~1960) Vision disorder Physical Therapy Inpatient Evaluation/Re-Eval M1 PT/OT-IP Prior Functional Status Start: 06/02/24 13:10 Freq: NEEDED Status: Active Protocol: Document 06/02/24 11:25 AB (Rec: 06/02/24 13:27 AB [id number]) Medical Review Prior Functional Status Medical History Reviewed Yes Communication able to make needs known; has memory issues Mobility and Gait son in room and provided some info: pt stated that she was modified indpeendent with all moiblities and ambulation without AD but during mobility , stated that spouse assists her with bed mobility. Prior Functional Level (Other details) per son and pt: pt with L shoulder fx ~ 3 months ago but now is healed and allowed to use and weight bear on LUE. stated that she currently goes to outpt PT for her shoulder Social History Household Members spouse Living Arrangements House Number of Floors (Floors) One Floor Number of Stairs To Enter/Railing? 2 steps with R rail ascending to enter from the back Home Environment Standard Height Toilet,Tub/ Shower Home Equipment Quad Cane,Straight Cane,Raised Toilet Seat w/Armrests M2 PT-IP Current Condition Start: 06/02/24 13:10 Freq: NEEDED Status: Active Protocol: Document 06/02/24 11:25 AB (Rec: 06/02/24 13:27 AB [id number]) Physical Therapy Current Condition Current Condition Evaluation Date 06/02/24 Treatment Diagnosis back pain; hypokalemia; difficulty in walking Onset Date 06/02/24 M3 PT-IP Subjective Start: 06/02/24 13:10 Freq: NEEDED Status: Active Protocol: Document 06/02/24 11:25 AB (Rec: 08/17/24 13:27 AB [id number]) Subjective Physical Therapy Visit Type Type Initial Evaluation Visit Start Time 11:25 Visit Stop Time 12:05 Number of HEAT PUMP INSTALLER Visits 0 Physical Therapy Visit Comments Patient Comments agreeable to do PT M4 PT-IP Mobility and Gait Start: 06/02/24 13:10 Freq: NEEDED Status: Active Protocol: Document 06/02/24 11:25 AB (Rec: 06/02/24 13:27 [id number]) PT-Bed Mobility Assessment Supine to Sit Supine to Sit Maximum Assistance,1 Person Assistance,Head of Bed Elevated,Bedrails PT-Transfer Assessment Sit to and From Stand Sit to and from Stand Maximum Assistance,1 Person Assistance,2 Person Assistance ,Use of Upper Extremities Equipment Transfer Assistive Device Gait Belt,Front Wheeled Walker Orthotic/Prosthetic Devices or Brace: No Transfers Transfer Destination Toilet Transfer Technique ambulated Transfer Ability Level of Assist Maximum Assistance,1 Person Assistance,2 Person Assistance ,Use of Upper Extremities Comments Mobility Comments pt supine in bed and agreeable to do PT. pt's son in room. pt with memory issues and son provided some of pt's info. BP: 168/66 O2 sat: 96% and GA: 84. pt completed supine to sit max A and max cues. HOB elevated. pt tends not to use LUE during mobility and cued to use LUE. pt requested to use the toilet. completed sit to stand max A x 1-2 and max cues. pt ambulated to the toilet using FWW max A x 1-2 and max cues. presents with shuffling antalgic gait with RLE tending to trail behind. encouraged to lift LE up and take increase steps. pt also presents with forward head posture and increase thoracic kyphosis. pt required max A x 1-2 to sit down on the toilet . nurse in room to assist. pt completed sit to stand from the toilet using grab bar max A x 2 and max cues. assisted pt with hygiene care and brief managment. required max A for standing balance using FWW for support. pt ambulated to the chair using FWW max A x 1- 2 and max cues ~ 10 ft. positioned pt on chair for lunch. call light and table placed within reach. left pt with son. Gait Assessment Gait Gait Assistance Required: Maximum Assistance,1 Person Assist,2 Person Assist Distance (Feet) 15 Able to Maintain Weight Bearing Status Yes During Gait Assistive Devices Assistive Device Gait Belt,Front Wheeled Walker Orthotic/Prosthetic Devices or Brace: No Gait Deviations General Gait Pattern Ataxic,Decreased Stride Length ,Decreased Feet Clearance,Step -to Gait Factors Limiting Gait Function Factors Limiting Gait Function Decreased Activity Tolerance, Decreased Strength,Difficulty Following Directions,Limited Range of Motion,Pain,Poor Balance,Poor Safety Awareness PT-Balance Assessment Sitting Balance and Reactions Static Sitting Balance Ability Fair Dynamic Sitting Balance Ability Fair Standing Balance and Reactions Static Standing Balance Ability Poor Dynamic Standing Balance Ability Poor Device Used FWW M5 PT-IP Objective Assessments Start: 06/02/24 13:10 Freq: NEEDED Status: Active Protocol: Document 06/02/24 11:25 AB (Rec: 06/02/24 13:27 AB [id number]) Orientation Orientation/Cognition Level of Alertness Confusional State Orientation Name,Place,Situation Language Function Ability Hard of Hearing Safety Awareness Decreased Safety Awareness Memory Description Short Term Impaired,Mcc Impaired Gross Range of Motion Lower Extremity ROM Assessment Within Functional Limits Strength Lower Extremity Strength Assessment Right Impaired Hip 3+/5 Knee 3+/5 Muscle Tone Muscle Tone WNL Yes M6 PT-IP Treatment Start: 06/02/24 13:10 Freq: NEEDED Status: Active Protocol: Document 06/02/24 11:25 AB (Rec: 06/02/24 13:27 AB [id number]) Physical Therapy Treatment Education Education Provided Safety M7 PT-IP Assessment and Plan Start: 06/02/24 13:10 Freq: NEEDED Status: Active Protocol: Document 06/02/24 11:25 AB (Rec: 06/02/24 13:27 AB [id number]) PT Summary Assessment and Plan Potential Rehabilitation Potential Fair Status of Condition at Evaluation Evolving Summary Impairments Pain,ROM,Strength,Balance, Coordination,Sensation,Tone, Cognition,Bed Mobility, Transfers,Gait,Activity Tolerance Assessment Summary pt is an 84 y/o F who presented to the ED due to thoracic back pain. pt unable to weight bear on LE in the ED. pt admitted for hypokalemia; back pain; anxiety. pt requiring max Ax1- 2 and max cues with all tasks. pt with unsteady shuffling gait during ambulation needing max A x 1-2. pt will require SNF rehab to improve overall mobility and strength. Goals Bed Mobility Goal Minimal Assistance Transfer Goal Minimal Assistance,Front Wheeled Walker Gait Goal Minimal Assistance,Front Wheel Walker Gait Distance 100 Other Goals improve bed mobility, transfers and ambulation using LRAD ~ 150 ft SBA up/down 2 steps R rail ascending SBA Days to Meet Goals 10 Frequency of Treatment Frequency Of Treatment Once a Day Treatment Plan Physical Therapy Treatment Plan Bed Mobility Training,Transfer Training,Gait Training, Therapeutic Exercise,Balance Retraining,Discharge Planning, Hot or Cold Pack,Neuromuscular Re-ed,Coordination Retraining ,Manual Therapy Recommendations To Nursing Amount of Assist Needed 2 Person Assist Discharge Recommendations PT Discharge Recommendations SNF Rehab Equipment Needed for Home Before FWW Discharge Transportation Needs at Discharge Wheelchair/Cabulance
[2024-06-02 13:46] LABS: Appearance Urine UA CLEAR; Bilirubin Urine UA NEGATIVE (NEGATIVE); Color Urine UA YELLOW; Glucose Urine UA NEGATIVE (Negative); Ketones Urine UA 1+ (NEGATIVE); Leukocyte Esterase Urine UA TRACE (NEGATIVE); Nitrite Urine UA POSITIVE (Negative); Occult Blood Urine UA NEGATIVE (Negative); Protein Urine UA NEGATIVE (Negative); pH Urine UA 7.5 (4.5-8.0)
[2024-06-02 13:53] LABS: Bacteria Urine Many (>30); Culture Indicated Urine Specimen Cultured; RBC Urine None Seen (0-5/HPF); Squamous Epithelial Cell Urine None Seen (0-5/HPF); Urine Volume 10mL (spun); WBC Urine 0-1/HPF (0-5/HPF)
[2024-06-02] MEDS: levoFLOXacin 500 MG/100 ML PIGGYBACK 100 MG IV (15:08)
[2024-06-02 16:50] LABS: Blood Urea Nitrogen 18 mg/dL (7-17); Calcium 8.9 mg/dL (8.4-10.2); Carbon Dioxide 28 mmol/L (22-32); Chloride 104 mmol/L (98-107); Estimated Glomerular Filt Rate > 60 mL/min (>60); Glucose 121 mg/dL (80-110); HEMOLYSIS 19 (0-50); Sodium 137 mmol/L (137-145)
[2024-06-02] MEDS: MELATONIN 3 MG TABLET PO (21:50)
[2024-06-03] VITALS (7 sets, daily range): BP systolic 130–168; BP diastolic 50–68; PULSE 84–94; RESP 16–20; TEMP 36–36.7; O2SAT 97–98
[2024-06-03] MEDS: HYDROCODONE/ACET 5/325 TABLET 1 TAB PO (05:15)
[2024-06-03 05:34] LABS: Add Manual Diff / Slide Review NO; Basophils Absolute Auto 0 /uL (0-100); Basophils Percent Auto 0.4 % (0-2); Eosinophils Absolute Auto 100 /uL (0-450); Eosinophils Percent Auto 1.9 % (2-4); Hematocrit 35.6 % (36-46); Hemoglobin 12.1 g/dL (12.0-16.0); Lymphocytes Absolute Auto 1200 /uL (1100-4500); Lymphocytes Percent Auto 24.4 % (25-40); Mean Corpuscular HGB Conc 33.9 % (30-36); Mean Corpuscular Hemoglobin 31.3 PG (26-34); Mean Corpuscular Volume 92.3 fL (80-100); Monocytes Absolute Auto 400 /uL (0-900); Monocytes Percent Auto 9.4 % (3-14); Neutrophils Absolute Auto 3100 /uL (1500-7000); Neutrophils Percent Auto 63.9 % (50-75); Platelet Count 183 X10^3/uL (150-400); Red Blood Cell Count 3.86 X10^6/uL (4.0-5.2); Red Cell Distribution Width 12.7 % (11.6-14.8); White Blood Cell Count 4.8 X10^3/uL (4.5-11.0)
[2024-06-03 05:40] LABS: Alanine Aminotransferase 19 IU/L (<35); Albumin Globulin Ratio 1.6 (1.0-2.8); Alkaline Phosphatase 56 U/L (38-126); Aspartate Aminotransferase 26 IU/L (14-36); BUN Creatinine Ratio 24.5 (6-22); Bilirubin Total 0.8 mg/dL (0.2-1.3); Blood Urea Nitrogen 13 mg/dL (7-17); Calcium 9.3 mg/dL (8.4-10.2); Carbon Dioxide 29 mmol/L (22-32); Chloride 105 mmol/L (98-107); Estimated Glomerular Filt Rate > 60 mL/min (>60); Globulin 2.5 g/dL (1.7-4.1); Glucose 140 mg/dL (80-110); HEMOLYSIS < 15 (0-50); Sodium 138 mmol/L (137-145); Total Protein 6.5 g/dL (6.3-8.2)
[2024-06-03] MEDS: LIDOCAINE 5% PATCH 1 EACH TOP (08:47)
[2024-06-03] MEDS: ENOXAPARIN 40 MG/0.4 ML SYRINGE SUBCUT (08:48)
[2024-06-03] MEDS: MELOXICAM 7.5 MG TABLET PO (08:49)
[2024-06-03] MEDS: DOCUSATE 100 MG CAPSULE PO (08:49)
[2024-06-03] MEDS: POTASSIUM CHLORIDE 20 MEQ TAB PO (08:50)
--- NOTE | 2024-06-03 08:51 | P.PN_ITS ---
Subjective Subjective Date Patient Seen: 06/03/24 Time Patient Seen: 08:52 Interval history: Patient up in chair this morning. Feeling better. Physical therapy saw yesterday was 2 person assist. Strength is better today. Feels as if she is doing better. Not back to normal. Has a lot of concerns about medication. No other change. Pain is improved. Exam Vital Signs (past 8 hours): - 06/03/24 04:00 Temperature 96.8 F L Pulse Rate 84 Respiratory Rate 20 Blood Pressure 168/53 H Pulse Oximetry 98 Oxygen Flow Rate 0 Oxygen Delivery Method Room Air Oxygen Flow Rate 0 Narrative Exam Narrative: Alert female much more interactive in no acute distress Lungs are clear heart is regular rate rhythm but unchanged Objective Labs 06/03/24 05:05 06/03/24 05:05 Labs: Laboratory Results - last 24 hr 06/02/24 06/02/24 06/03/24 13:15 16:25 05:05 WBC 4.8 RBC 3.86 L Hgb 12.1 Hct 35.6 L MCV 92.3 MCH 31.3 MCHC 33.9 RDW 12.7 Plt Count 183 Neut % (Auto) 63.9 Lymph % (Auto) 24.4 L [place] % (Auto) 9.4 Eos % (Auto) 1.9 L Baso % (Auto) 0.4 Neut # (Auto) 3100 Lymph # (Auto) 1200 [place] # (Auto) 400 Eos # (Auto) 100 Baso # (Auto) 0 Sodium 137 138 Potassium 4.0 D 4.0 Chloride 104 105 Carbon Dioxide 28 29 BUN 18 H 13 Creatinine 0.62 0.53 Estimated GFR > 60 > 60 BUN/Creatinine Ratio 29.0 H 24.5 H Glucose 121 H 140 H Calcium 8.9 9.3 Total Bilirubin 0.8 AST 26 ALT 19 Alkaline Phosphatase 56 Total Protein 6.5 Albumin 4.0 Globulin 2.5 Albumin/Globulin Ratio 1.6 Urine Color Yellow Urine Appearance Clear Urine pH 7.5 Ur Specific [place] 1.010 Urine Protein Negative Urine Glucose (UA) Negative Urine Ketones 1+ H Urine Occult Blood Negative Urine Nitrate Positive H Urine Bilirubin Negative Urine Urobilinogen 1.0 Ur Leukocyte Esterase Trace H Urine RBC None seen Urine WBC 0-1/hpf Ur Squamous Epith Cells None seen Urine Bacteria Many (>30) H Ur Culture Indicated? Specimen cultured Vol Urine Centrifuged 10ml (spun) [facility] Medical History Inflamed seborrheic keratosis Low back pain with sciatica Vision disorder Fibroids Herniated disc History of restless legs syndrome (~2004) Acne (~1959) Mumps (~1960) Measles (~194) Chicken pox Hemorrhoid (~1964) Surgical History History of breast biopsy (~1981) Status post hemorrhoidectomy (~1984) Status post hysterectomy (~1981) Family History Father Stroke Mother No problems noted. Social History marital status: household members: spouse Smoking Status: Never smoker alcohol intake: never Assessment & Plan Assessment & Plan narrative: UTI. Gram-negative bacilli. Much improved today. Clinically. Continue Levaquin. Will switch to oral. And see how things go. Maybe able to adjust medications tomorrow based on culture. Anxiety. Much improved today. Did get 1 dose of Ativan last night. Otherwise seems to be doing well. At this point we can continue as needed Ativan and hopefully she is feeling better she will not need anything. As she gets away from other medication. Back pain. Improved. Whether it is still lidocaine patch or the meloxicam heart decide. But I think meloxicam and b.i.d. hydrocodone seems to be working well long with a patch. That is what I would discharge her on if things go well. Will need physical therapy to strengthen. And to reduce pain. Home exercise program would be good. Should be able to get her back to baseline I would think. Hypokalemia. Improved. Going to hold Lasix today. I am not sure she needs it every day. Will have to see how it goes. Will let her primary care doctor decide. Certainly she goes back on Lasix she will need to be on potassium. Question is whether or not she will need to be on 40 of Lasix maybe 20 would work and we could be a better place. Will have to see how it goes. Pedal edema. Trace today. I am going to hold Lasix today. Will see how it goes. Generalized weakness. Maybe slightly improved. Physical therapy was looking at possible placement with sniff I am not sold that is going to be needed. Will see what 1 more day of getting her medicines more organized and mobilization today. UTI may have had a bigger role then we are anticipating. DVT prophylaxis on Lovenox GI prophylaxis not needed Code status full Disposition. Anticipate discharge tomorrow. I will be surprised if she needs to go to sniff as good as she looks today but will see what physical therapy finds today. And 1 more day of treatment and normalized potassium. Discussed extensively with family questions answered. Time-Based Coding :: [TOTAL MINUTES] spent with patient and on the chart (including review of chart, obtaining history, exam, reviewing outside data, placing orders, documenting exam and treatment plan, and counseling patient) on [DATE]. Quality VTE Deep Vein Thrombosis/Pulmonary Embolism Present on Admission: No
[2024-06-03] MEDS: LORazepam 0.5 MG TABLET PO ×2 (09:08→21:03)
[2024-06-03] MEDS: levoFLOXacin 250 MG TABLET PO (09:08)
--- NOTE | 2024-06-03 10:28 | PT.IPTN ---
Physical Therapy Treatment Note M2 PT-IP Current Condition Start: 06/02/24 13:10 Freq: NEEDED Status: Active Protocol: Document 06/02/24 11:25 AB (Rec: 06/02/24 13:27 AB [id number]) Physical Therapy Current Condition Current Condition Evaluation Date 06/02/24 Treatment Diagnosis back pain; hypokalemia; difficulty in walking Onset Date 06/02/24 M3 PT-IP Subjective Start: 06/02/24 13:10 Freq: NEEDED Status: Active Protocol: Document 06/03/24 10:01 KS (Rec: 06/03/24 12:31 KS [id number]) Subjective Physical Therapy Visit Type Type Treatment Note Visit Start Time 10:01 Visit Stop Time 10:28 Notes Daughter and spouse present. Number of REMEDIAL READING TEACHER Visits 1 Physical Therapy Visit Comments Patient Comments agreeable to do PT M4 PT-IP Mobility and Gait Start: 06/02/24 13:10 Freq: NEEDED Status: Active Protocol: Document 06/03/24 10:01 KS (Rec: 06/03/24 12:31 KS [id number]) PT-Bed Mobility Assessment Supine to Sit Supine to Sit Minimal Assistance,1 Person Assistance,Head of Bed Elevated Sit to Supine Sit to Supine Minimal Assistance,1 Person Assistance,Head of Bed Elevated Scooting Scooting to Edge of Bed Moderate Assistance PT-Transfer Assessment Sit to and From Stand Sit to and from Stand Minimal Assistance,1 Person Assistance,Use of Upper Extremities Equipment Transfer Assistive Device Gait Belt,Front Wheeled Walker Orthotic/Prosthetic Devices or Brace: No Transfers Transfer Destination Bed Transfer Technique ambulated Transfer Ability Level of Assist Minimal Assistance,Moderate Assistance,1 Person Assistance ,Use of Upper Extremities Comments Mobility Comments Pt in bed upon arrival, feeling somewhat better today. Min A for sup<>Sit, Mod A for scooting EOB. Min A and cues for sit<>stand w/ FWW. Pt then ambulated ~30 ft in room w/ FWW Min A. Short stride w/ minimal ground clearance. She then reported fatigue and requested to get back in bed. Pt left in bed w/ all needs in reach. Gait Assessment Gait Gait Assistance Required: Minimum Assistance,1 Person Assist Distance (Feet) 30 Able to Maintain Weight Bearing Status Yes During Gait Assistive Devices Assistive Device Gait Belt,Front Wheeled Walker Orthotic/Prosthetic Devices or Brace: No Gait Deviations General Gait Pattern Ataxic,Decreased Stride Length ,Decreased Feet Clearance,Step -to Gait Factors Limiting Gait Function Factors Limiting Gait Function Decreased Activity Tolerance, Decreased Strength,Difficulty Following Directions,Limited Range of Motion,Pain,Poor Balance,Poor Safety Awareness Comments Gait Comments see mobility section for details. PT-Balance Assessment Sitting Balance and Reactions Static Sitting Balance Ability Fair Dynamic Sitting Balance Ability Fair Standing Balance and Reactions Static Standing Balance Ability Fair Dynamic Standing Balance Ability Poor Device Used FWW M5 PT-IP Objective Assessments Start: 06/02/24 13:10 Freq: NEEDED Status: Active Protocol: Document 06/02/24 11:25 AB (Rec: 06/02/24 13:27 AB [id number]) Orientation Orientation/Cognition Level of Alertness Confusional State Orientation Name,Place,Situation Language Function Ability Hard of Hearing Safety Awareness Decreased Safety Awareness Memory Description Short Term Impaired,Credit Associate Impaired Gross Range of Motion Lower Extremity ROM Assessment Within Functional Limits Strength Lower Extremity Strength Assessment Right Impaired Hip 3+/5 Knee 3+/5 Muscle Tone Muscle Tone WNL Yes M6 PT-IP Treatment Start: 06/02/24 13:10 Freq: NEEDED Status: Active Protocol: Document 06/03/24 10:01 KS (Rec: 06/03/24 12:31 KS [id number]) Physical Therapy Treatment Exercises Exercises Ankle Pumps,Gluteal Sets,Heel Slides,Straight Leg Raises Education Education Provided Safety M7 PT-IP Assessment and Plan Start: 06/02/24 13:10 Freq: NEEDED Status: Active Protocol: Document 06/03/24 10:01 KS (Rec: 06/03/24 12:31 KS [id number]) PT Summary Assessment and Plan Potential Rehabilitation Potential Fair Summary Impairments Pain,ROM,Strength,Balance, Coordination,Sensation,Tone, Cognition,Bed Mobility, Transfers,Gait,Activity Tolerance Progress Towards Goals Progressing Toward Goals Assessment Summary Pt requiring less assistance overall today and able to increase gait distance however still remains limited by low tolerance for activity and demonstrates shuffling gait w/ FWW increasing risk for falls . Pt would benefit from SNF to improve strength and functional mobility. Goals Bed Mobility Goal Minimal Assistance Transfer Goal Minimal Assistance,Front Wheeled Walker Gait Goal Minimal Assistance,Front Wheel Walker Gait Distance 100 Other Goals improve bed mobility, transfers and ambulation using LRAD ~ 150 ft SBA up/down 2 steps R rail ascending SBA Days to Meet Goals 10 Frequency of Treatment Frequency Of Treatment Once a Day Treatment Plan Physical Therapy Treatment Plan Bed Mobility Training,Transfer Training,Gait Training, Therapeutic Exercise,Balance Retraining,Discharge Planning, Hot or Cold Pack,Neuromuscular Re-ed,Coordination Retraining ,Manual Therapy Recommendations To Nursing Amount of Assist Needed 1 Person Assist Discharge Recommendations PT Discharge Recommendations SNF Rehab Equipment Needed for Home Before FWW Discharge Transportation Needs at Discharge Wheelchair/Cabulance
--- NOTE | 2024-06-03 14:17 | CM.DANOTE ---
Patient is an 84 yo female who was admitted INPT Status on 06/03/24 for Pain Management, hypokalemia, adema. Pt has [facility] for insurance and her PCP is Dr. Thad Mclean. EMR was reviewed. Per MD, pt with hx of arm fx/injury 3 mo ago and has struggled with ongoing pain management issues with her shoulder and back which has caused anxiety and some additional adema and sodium issues. Pt not yet stable for discharge and at least another day. Per PT, pt initially needing much more assist and recommendation was SNF but pt made progress today and now recommending home with family assist and HH if pt continues to make progress. SW met bedside with pt and adult son Jer and grandyefri and explained role and they confirm that pt lives at home in [place] with her and both are quite independent and active. Spouse is able to assist pt as needed and family has increased their assist and checking on pt and spouse since her shoulder injury a couple months ago. Pt now with new DME of cane and walker and has been attending outpt PT once a week and son typically transports and does the exercises with pt daily. Pt's Dtr lives about a block away, son Jer lives about 5 minutes away, and their other Dtr lives about 10 minutes away. Pt denies any hx of HH or SNF and discussed both SNF and HH services and frequency. Currently family attempting to keep pt's d/c plan simple and family will assist as much as needed. Current preference is for MD to simplify her pain medications and family to keep taking pt to her outpt PT appointments where they know her and have a consistent plan. Deny any need for SNF at this time. Plan: SW to follow closely in the AM with family to confirm plan of home with family assist and continue outpt PT and any further identified discharge planning needs. JAMILA Abarca Discharge Planning/Care Management Advanced directive, confirm from FAMILY Start: 06/02/24 10:17 Freq: Q24H Status: Active Protocol: Document 06/02/24 10:17 SB (Rec: 06/02/24 11:23 SB [id number]) Advance Directive, confirm on record Time 11:23 Person contacted Karen (daughter) and patient Copy received No Document 06/03/24 10:17 SB (Rec: 06/03/24 10:34 SB [id number]) Advance Directive, confirm on record Time 11:23 Person contacted Karen (daughter) and patient Copy received No Time 10:34 Person contacted patient Copy received No CM Discharge Assessment Start: 06/03/24 14:15 Freq: Status: Active Protocol: Document 06/03/24 14:15 BF (Rec: 06/03/24 14:17 BF [id number]) Discharge Planning Assessment Assigned Measurement Supervisor JAMILA Phillips DPOA/Assigned Designee Name spouse Advance Directives? Yes Advance Directives on File No History Provided By Patient,Family Member,Medical Record Has Patient been admitted in last 30 No days? Prior Living Arrangements House Household Members spouse Type of transporation used prior to Relies on Others admit Comment Family provides transport Independent with ADL's Yes: mostly, more help needed since her shoulder injury Is patient alert and oriented? Yes Needs Assistance With Managing Medications,Home Chores / Shopping Caregiver for Another No Community Services used prior to Physical Therapy admission: Comment Established with local outpt PT clinic DME Already Rented / Owned FWW / Walker,Cane Patient/Family Preference Home with Home Health,OP PT Therapy Comment Home with HH vs continue outpt PT Barriers to Discharge No Discharge Plan Home Community Services Physical Therapy Transportation Arrangement Lots of local family who can provide transport at d/c Additional Comment Pt and family currently leaning towards resume outpt PT and decline HH Whiteboard Updated in Patient Room with Yes name and ext. # of Measurement Supervisor Review Status In Process Please Provide Date Initial DC 06/03/24 Assessment Was Performed Next Review Type Continued Stay Review
[2024-06-03] MEDS: MELATONIN 3 MG TABLET PO (21:02)
[2024-06-04 03:00] VITALS: BP 134/57; PULSE 86; RESP 18; TEMP 36.5; O2SAT 99
[2024-06-04 07:00] VITALS: BP 168/62; PULSE 88; RESP 14; TEMP 36.6; O2SAT 97
--- NOTE | 2024-06-04 08:08 | PM.DS.1 ---
History of Present Illness History of Present Illness Chief complaint: shoulder- back pain Discharge Providers Provider Date of admission: 06/02/24 07:16 Discharge Date: 06/04/24 Primary care physician: Thad Mclean MD Consults: 06/02/24 06:46 Consult to Physical Therapy Evaluate & Treat Comment: Physician Instructions: Evaluate and Treat 06/02/24 10:39 Consult to Physical Therapy Evaluate & Treat Comment: Physician Instructions: Evaluate and Treat 06/02/24 10:53 Consult to Physical Therapy Evaluate & Treat Comment: Physician Instructions: Evaluate and Treat Discharge provider: Thad Mclean MD Summary Hospital Course Discharge Diagnosis: Acute hypokalemia Urinary tract infection with weakness Humerus fracture chronic healing Thoracic back pain Lower extremity edema Generalized anxiety disorder Hospital Course: Patient admitted to the hospital with hypokalemia and urinary tract infection. Patient has been struggling with recent thoracic and lumbar back pain with humerus fracture earlier this year. She has been more immobile and having increasing weakness. She was found in the emergency department to be hypokalemic. She has been using intermittent doses of furosemide to help with lower extremity edema. She has obviously had some confusion with her medication. She was taking some gabapentin for her pain. She was admitted the hospital given IV and oral potassium. She was also found to have a urinary tract infection and was started on fluoroquinolone. Urine culture grew out Gram-negative bacilli most likely E coli. Sensitivities are pending at this point. During the hospital stay she started out with significant weakness requiring 2 person assist the time of discharge she was requiring less assistance. She had her 2 sisters and son at the bedside. Discharge plan was home she lives at home with her elderly . Plan will be for patient to go home with home physical therapy home occupational therapy and fair family support. Strict medication plan was started for the patient and family. Were will stop her current medications including gabapentin and hydrocodone. The use lidocaine an anti-inflammatory and Tylenol for pain relief. Exam Vital Signs (past 8 hours): - 06/04/24 03:00 Temperature 97.7 F Pulse Rate 86 Respiratory Rate 18 Blood Pressure 134/57 L Pulse Oximetry 99 Oxygen Flow Rate 0 Oxygen Delivery Method Room Air Oxygen Flow Rate 0 Objective Labs 06/03/24 05:05 06/03/24 05:05 [facility] Medical History Inflamed seborrheic keratosis Low back pain with sciatica Vision disorder Fibroids Herniated disc History of restless legs syndrome (~2004) Acne (~1959) Mumps (~1960) Measles (~194) Chicken pox Hemorrhoid (~1964) Surgical History History of breast biopsy (~1981) Status post hemorrhoidectomy (~1984) Status post hysterectomy (~1981) Family History Father Stroke Mother No problems noted. Social History marital status: household members: spouse Smoking Status: Never smoker alcohol intake: never Discharge Plan Discharge Plan Patient Disposition: Home Health Service Discharge orders & Medications Prescriptions: New meloxicam 7.5 mg Tablet 7.5 mg PO 0800 Qty: 30 0RF lidocaine 5 % Adhesive Patch,Medicated 1 patch topical DAILY 1 Days Qty: 30 0RF sertraline [Zoloft] 50 mg tablet 50 mg PO DAILY Qty: 30 1RF acetaminophen [Tylenol Arthritis Pain] 650 mg tablet extended release 650 mg PO Q8H Qty: 90 1RF ciprofloxacin HCl [Cipro] 500 mg tablet 500 mg PO BID Qty: 6 0RF Continued docusate sodium [Stool Softener] 100 mg capsule 200 mg PO DAILY PRN (Reason: Constipation) Rx Instructions: a few times a week furosemide 40 mg tablet 40 mg PO DAILY Qty: 90 1RF Discontinued ibuprofen [Advil] 200 mg tablet 400 mg PO Q4H hydrocodone-acetaminophen 5-325 mg tablet 1 tab PO QID PRN (Reason: pain) Qty: 10 0RF lorazepam [Ativan] 0.5 mg tablet 0.5 mg PO TID PRN (Reason: anxiety) Qty: 5 0RF Follow up/Referrals: Thad Mclean MD [Primary Care Provider] - Visit Report/Discharge Packet Stand Alone Forms: Patient Portal/API, Stroke Signs & Symptoms Discharge Data Primary Care Provider: Thad Mclean Quality VTE Deep Vein Thrombosis/Pulmonary Embolism Present on Admission: No
[2024-06-04] MEDS: LIDOCAINE 5% PATCH 1 EACH TOP (08:42)
[2024-06-04] MEDS: DOCUSATE 100 MG CAPSULE PO (08:43)
[2024-06-04] MEDS: MELOXICAM 7.5 MG TABLET PO (08:43)
[2024-06-04] MEDS: POTASSIUM CHLORIDE 20 MEQ TAB PO (08:43)
--- NOTE | 2024-06-04 11:33 | PC.NURSE ---
Day shift: Discharge instructions gone over with patient and patient's family. PT Brooke and pharmacist Javon also provided education. PIV and tele d/c'ed prior to discharge. Patient and patient's family stated understanding, all questions answered. All belongings with patient. PCT Randall escorted patient to exit via wheelchair.
--- NOTE | 2024-06-04 11:33 | PT.IPTN ---
Physical Therapy Treatment Note M2 PT-IP Current Condition Start: 06/02/24 13:10 Freq: NEEDED Status: Active Protocol: Document 06/02/24 11:25 AB (Rec: 06/02/24 13:27 AB [id number]) Physical Therapy Current Condition Current Condition Evaluation Date 06/02/24 Treatment Diagnosis back pain; hypokalemia; difficulty in walking Onset Date 06/02/24 M3 PT-IP Subjective Start: 06/02/24 13:10 Freq: NEEDED Status: Active Protocol: Document 06/04/24 10:30 MB (Rec: 06/04/24 11:33 MB [id number]) Subjective Physical Therapy Visit Type Type Treatment Note Visit Start Time 10:30 Visit Stop Time 11:00 Notes Many family members nearby Number of [employer] CONSULTANT Visits 0 Physical Therapy Visit Comments Patient Comments Pt asks PT if she should get a new bed at home because hers is too low. Therapy Pain Assessment Pain When Pain Assessed At Rest Pain Present Pain Present Denied Pain M4 PT-IP Mobility and Gait Start: 06/02/24 13:10 Freq: NEEDED Status: Active Protocol: Document 06/04/24 10:30 MB (Rec: 06/04/24 11:33 MB [id number]) PT-Bed Mobility Assessment Supine to Sit Supine to Sit Contact Guard Assistance, Bedrails Sit to Supine Sit to Supine Contact Guard Assistance, Bedrails Scooting Scooting to Edge of Bed Contact Guard Assistance Scooting Up and Down in Bed Contact Guard Assistance PT-Transfer Assessment Sit to and From Stand Sit to and from Stand Minimal Assistance,1 Person Assistance,Use of Upper Extremities Equipment Transfer Assistive Device Gait Belt,Front Wheeled Walker Orthotic/Prosthetic Devices or Brace: No Transfers Transfer Destination Bed Transfer Technique Ambulation Transfer Ability Level of Assist Minimal Assistance,1 Person Assistance,Use of Upper Extremities Comments Mobility Comments PT cues pt for mobility, especially hand placement to push up from the bed, increased time and no c/o pain with mobility Gait Assessment Gait Gait Assistance Required: Contact Guard Assist,Minimum Assistance,1 Person Assist Distance (Feet) 30 Able to Maintain Weight Bearing Status Yes During Gait Assistive Devices Assistive Device Gait Belt,Front Wheeled Walker Orthotic/Prosthetic Devices or Brace: No Gait Deviations General Gait Pattern Decreased Stride Length, Decreased Feet Clearance, Flexed Trunk,Step-to Gait Factors Limiting Gait Function Factors Limiting Gait Function Decreased Activity Tolerance, Decreased Strength,Difficulty Following Directions, Incoordination,Poor Balance, Poor Safety Awareness Comments Gait Comments Toe-toe gait and pt does not have B heel strike with stepping and stepping is magnetic in nature PT-Balance Assessment Sitting Balance and Reactions Static Sitting Balance Ability Fair Dynamic Sitting Balance Ability Fair Standing Balance and Reactions Static Standing Balance Ability Fair Dynamic Standing Balance Ability Poor Device Used FWW M5 PT-IP Objective Assessments Start: 06/02/24 13:10 Freq: NEEDED Status: Active Protocol: Document 06/02/24 11:25 AB (Rec: 06/02/24 13:27 AB [id number]) Orientation Orientation/Cognition Level of Alertness Confusional State Orientation Name,Place,Situation Language Function Ability Hard of Hearing Safety Awareness Decreased Safety Awareness Memory Description Short Term Impaired,Group Home Impaired Gross Range of Motion Lower Extremity ROM Assessment Within Functional Limits Strength Lower Extremity Strength Assessment Right Impaired Hip 3+/5 Knee 3+/5 Muscle Tone Muscle Tone WNL Yes M6 PT-IP Treatment Start: 06/02/24 13:10 Freq: NEEDED Status: Active Protocol: Document 06/04/24 10:30 MB (Rec: 06/04/24 11:33 MB [id number]) Physical Therapy Treatment Education Education Provided Safety Other Treatments Other Treatment Performed Spoke with pt and family about benefits of RW, HHPT rec, benefits of BSC M7 PT-IP Assessment and Plan Start: 06/02/24 13:10 Freq: NEEDED Status: Active Protocol: Document 06/04/24 10:30 MB (Rec: 06/04/24 11:33 MB [id number]) PT Summary Assessment and Plan Potential Rehabilitation Potential Fair Status of Condition at Evaluation Evolving Summary Impairments Pain,ROM,Strength,Balance, Coordination,Sensation,Tone, Cognition,Bed Mobility, Transfers,Gait,Activity Tolerance Progress Towards Goals Progressing Toward Goals Assessment Summary Pt makes small gains with mobility and it sounds like plan is to d/c home with son today. Goals Bed Mobility Goal Independent Transfer Goal Independent,Front Wheeled Walker Gait Goal Independent,Front Wheel Walker Gait Distance 100 Other Goals improve bed mobility, transfers and ambulation using LRAD ~ 150 ft SBA up/down 2 steps R rail ascending SBA Days to Meet Goals 10 Frequency of Treatment Frequency Of Treatment Once a Day Treatment Plan Physical Therapy Treatment Plan Bed Mobility Training,Transfer Training,Gait Training, Therapeutic Exercise,Balance Retraining,Discharge Planning, Hot or Cold Pack,Neuromuscular Re-ed,Coordination Retraining ,Manual Therapy Recommendations To Nursing Amount of Assist Needed 1 Person Assist Discharge Recommendations PT Discharge Recommendations Home with 09/05 Assist Available,Home Health,SNF Rehab,Home vs SNF Transportation Needs at Discharge Wheelchair/Cabulance
--- NOTE | 2024-06-05 07:56 | CM.DPC ---
Addendum entered by JAMILA Abarca 06/05/24 10:55: ADD: Confirmation from Kim at [facility] that they accepted the referral and calling pt/spouse to schedule pt for this week. BF Original Note: Late Entry: DCP Discharge Home Per MD, pt is medically stable to discharge home later today after further PT and MD requesting SW to set up at least HH OT for the patient. Per PT, strongly recommending HH at discharge and family assist. Family agreeable with transporting pt home and continuing to assist her as needed and agreeable to try HH even though they have been leaning towards resuming outpt PT. Based on pt's insurance and the Vendor Calendar, [facility] referral made and F2F and HH orders completed. Plan: Patient discharged home yesterday afternoon via family assist and new [facility] referral made. JAMILA Abarca
== END 2024-06-04 11:40 | disposition home health service (06) | DRG 690 ==
LOC: ED 06:57 → AC 11:19
PROVIDERS: Admitting Provider Family Medicine; Emergency Provider Emergency Medicine; Family Provider Family Medicine; PCP Family Medicine; Referring Provider Emergency Medicine; Visit Provider Family Medicine
DX: N39.0 Urinary tract infection, site not specified (principal); E87.6 Hypokalemia; R60.0 Localized edema; M54.6 Pain in thoracic spine; F41.1 Generalized anxiety disorder; B96.20 Unspecified Escherichia coli [E. coli] as the cause of diseases classified elsewhere; S42.302D Unspecified fracture of shaft of humerus, left arm, subsequent encounter for fracture with routine healing; W19.XXXD Unspecified fall, subsequent encounter
CPT/HCPCS: 36415; 80048; 80053; 81001; 85025; 87077; 87086; 87186; 93005; 93010; 96365; 96366; 97110; 97116; 97162; 97530; 99283; 99284; J1650; J1956

== ENCOUNTER → 2024-06-07 16:39 | Outpatient (CLI) | payer OTHER, SELFPAY ==
[2024-06-02 10:08] VITALS: BMI 24.2
[2024-06-11 12:32] LABS: Appearance Urine UA SL CLOUDY; Bilirubin Urine UA 1+ (NEGATIVE); Color Urine UA YELLOW; Glucose Urine UA NEGATIVE (Negative); Ketones Urine UA 1+ (NEGATIVE); Leukocyte Esterase Urine UA NEGATIVE (NEGATIVE); Nitrite Urine UA POSITIVE (Negative); Occult Blood Urine UA NEGATIVE (Negative); Protein Urine UA TRACE (Negative); Specific Gravity Urine UA 1.015 (1.000-1.035)
[2024-06-11 13:18] LABS: Bacteria Urine Many (>30); Calcium Oxalate Crystals Urine Moderate; Culture Indicated Urine Specimen Cultured; Ictotest Urine Negative (Negative); RBC Urine None Seen (0-5/HPF); Squamous Epithelial Cell Urine 1-5 /HPF (0-5/HPF); Urine Volume Low Vol <10mL (spun); WBC Urine 1-5/HPF (0-5/HPF)
== END ==
PROVIDERS: Family Provider Family Medicine; PCP Family Medicine; Visit Provider Family Medicine
DX: E87.6 Hypokalemia (principal); N39.0 Urinary tract infection, site not specified
CPT/HCPCS: 81001; 87077; 87086

== ENCOUNTER → 2024-06-11 11:31 | Outpatient (CLI) | payer OTHER, SELFPAY ==
[2024-06-02 10:08] VITALS: BMI 24.2
[2024-06-11 13:29] LABS: BUN Creatinine Ratio 27.1 (6-22); Blood Urea Nitrogen 19 mg/dL (7-17); Calcium 9.7 mg/dL (8.4-10.2); Carbon Dioxide 23 mmol/L (22-32); Chloride 101 mmol/L (98-107); Estimated Glomerular Filt Rate > 60 mL/min (>60); Glucose 119 mg/dL (80-110); HEMOLYSIS < 15 (0-50); Potassium 3.6 mmol/L (3.4-5.1); Sodium 136 mmol/L (137-145)
== END ==
PROVIDERS: Family Provider Family Medicine; PCP Family Medicine; Referring Provider Family Medicine; Visit Provider Family Medicine
DX: E87.6 Hypokalemia (principal); N39.0 Urinary tract infection, site not specified
CPT/HCPCS: 36415; 80048

== ENCOUNTER → 2024-06-26 11:09 | Outpatient (ROUT) | payer OTHER, SELFPAY ==
[2024-06-02 10:08] VITALS: BMI 24.2
[2024-06-26 11:19] LABS: Appearance Urine UA CLEAR; Bilirubin Urine UA NEGATIVE (NEGATIVE); Color Urine UA YELLOW; Glucose Urine UA NEGATIVE (Negative); Ketones Urine UA NEGATIVE (NEGATIVE); Leukocyte Esterase Urine UA NEGATIVE (NEGATIVE); Nitrite Urine UA NEGATIVE (Negative); Occult Blood Urine UA NEGATIVE (Negative); Protein Urine UA NEGATIVE (Negative); Specific Gravity Urine UA <=1.005 (1.000-1.035); Urobilinogen Urine UA 0.2 E.U./dL (0.2)
[2024-06-26 11:32] LABS: Bacteria Urine Moderate (10-30); Culture Indicated Urine Cult Not Indicated; RBC Urine 0-1/HPF (0-5/HPF); Squamous Epithelial Cell Urine 0-1 /HPF (0-5/HPF); Urine Volume 10mL (spun); WBC Urine 1-5/HPF (0-5/HPF)
[2024-06-26 11:50] LABS: Alanine Aminotransferase 26 IU/L (<35); Albumin 4.2 g/dL (3.5-5.0); Albumin Globulin Ratio 1.4 (1.0-2.8); Alkaline Phosphatase 111 U/L (38-126); Aspartate Aminotransferase 26 IU/L (14-36); BUN Creatinine Ratio 38.5 (6-22); Bilirubin Total 0.6 mg/dL (0.2-1.3); Blood Urea Nitrogen 20 mg/dL (7-17); Calcium 9.2 mg/dL (8.4-10.2); Carbon Dioxide 22 mmol/L (22-32); Chloride 102 mmol/L (98-107); Estimated Glomerular Filt Rate > 60 mL/min (>60); Glucose 109 mg/dL (80-110); HEMOLYSIS < 15 (0-50); Potassium 3.9 mmol/L (3.4-5.1); Sodium 133 mmol/L (137-145); Total Protein 7.2 g/dL (6.3-8.2)
== END ==
PROVIDERS: Family Provider Family Medicine; PCP Family Medicine; Visit Provider Family Medicine
DX: N39.0 Urinary tract infection, site not specified (principal); R53.1 Weakness; E87.6 Hypokalemia
CPT/HCPCS: 80053; 81001

== ENCOUNTER → 2024-06-28 18:38 | Outpatient (CLI) | payer OTHER, SELFPAY ==
[2024-06-02 10:08] VITALS: BMI 24.2
--- NOTE | 2024-06-28 18:41 | DI.MRI.S_ITS ---
PROCEDURE: MR HEAD/BRAIN WO/W CON INDICATIONS: weakness, possible Parkinson's dz, Parkinsonian features TECHNIQUE: Noncontrast axial T1 spin echo, axial T2 fast spin echo, sagittal and axial FLAIR, coronal T2 fast spin echo, axial gradient echo, axial diffusion and ADC through the brain. After the administration of contrast, axial and coronal and sagittal 3D VIBE or T1 spin echo with fat saturation through the brain. COMPARISON: None. FINDINGS: CSF Spaces: Basal cisterns are patent. No extra-axial fluid collections. Ventricles are normal in size and shape. Brain: No intracranial masses or hemorrhage. [place]/white matter interface is normal. Brainstem appears normal. Diffusion-weighted sequence is unremarkable without evidence of acute infarct. Normal intravascular flow voids are present. In the pituitary gland, there is vague fullness and hypoenhancement in the left aspect of the gland with deviation of the infundibulum to the right. Area of concern measures approximately 7 mm. No suprasellar mass lesion or optic chiasm involvement. Generalized symmetric cerebral atrophy and mild matter chronic ischemic change is appropriate for age. Skull and face: Calvarial marrow is normal in signal. Orbits appear normal. Bilateral intraocular lens replacements noted. Sinuses: Sinuses and mastoids appear clear. IMPRESSION: Age-appropriate atrophy and mild white matter chronic ischemic change. 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 Consider follow-up dedicated contrast MRI sella. Approved by: Raji Guan M.D. on 06/29/2024 at 9:08
== END ==
LOC: MRI 18:39
PROVIDERS: Family Provider Family Medicine; PCP Family Medicine; Referring Provider Family Medicine; Visit Provider Family Medicine
DX: R29.818 Other symptoms and signs involving the nervous system (principal)
CPT/HCPCS: 70553; A9579

== ENCOUNTER 2024-08-09 13:57 | Emergency (ER) | payer OTHER, SELFPAY ==
[2024-06-02 10:08] VITALS: BMI 24.2
[2024-08-09 14:01] VITALS: BP 139/65; PULSE 84; RESP 18; TEMP 36.4; O2SAT 98; BMI 20.3
--- NOTE | 2024-08-09 14:06 | DI.US.S_ITS ---
PROCEDURE: US PERIPH VENOUS LOW EXTREM RT INDICATIONS: right leg swelling TECHNIQUE: Real-time imaging, as well as color and pulse Doppler interrogation, were performed of the lower extremity deep veins from the inguinal ligament to the popliteal fossa, with documentation of the visualized calf veins. COMPARISON: None. FINDINGS: The common femoral, femoral, popliteal, and the visualized calf veins are normally compressible, and free of intraluminal thrombus. Color and pulse Doppler demonstrate normal phasic intraluminal flow. There is normal augmentation response to distal compression maneuver. A prominent right groin lymph node can be seen. Prominent lower extremity edema can be seen involving the calf. IMPRESSION: No findings of lower extremity deep venous thrombosis. Note: Concordant preliminary findings given by the estate planner upon the completion of the examination to nurse Olivia Sanchez at 3:30 p.m. on August 09, 2024. Dictated by: Damian Dobson M.D. on 08/09/2024 at 14:42 Approved by: Damian Dobson M.D. on 08/09/2024 at 14:43
--- NOTE | 2024-08-09 15:56 | ED.EXTPRO ---
HPI - Extremity Problem <Karin Sanchez PA-C - Last Filed: 08/09/24 18:59> General Chief complaint: Extremity Problem,Nontraumatic Stated complaint: poss blood clot in rt leg, rule out DVT Time Seen by Provider: 08/09/24 15:56 Source: patient Mode of arrival: Wheelchair History of Present Illness HPI Narrative: Patient is a very pleasant 84-year-old female that presents to the emergency room department today with family, was suggested by her in-home health nurse that she be seen evaluated due to obvious right lower extremity edema, and swelling, with unilateral enlargement of the right lower extremity. Concern for DVT. Patient has no discomfort and pain, no recent injury, a fall about 2 weeks ago with some minor bruising to the right lateral leg. No other further complaints. Takes Lasix twice a week. Recent injury and fall within the last year, and some we have ring medical problems. She is here with her family. Currently brought back to the [facility] area after her ultrasound by wheelchair. Related Data Home Medications Medication Instructions Recorded Confirmed docusate sodium 100 mg capsule 200 mg PO DAILY PRN Constipation 05/28/24 07/16/24 (Stool Softener) Previous Rx's Medication Instructions Recorded furosemide 40 mg tablet 40 mg PO DAILY #90 tabs 05/28/24 meloxicam 7.5 mg tablet 7.5 mg PO QAM #30 tabs 06/28/24 lidocaine 5 % topical patch 1 patch topical DAILY #30 ea 07/02/24 quetiapine 25 mg tablet 25 mg PO BEDTIME #30 tabs 07/03/24 sertraline 50 mg tablet (Zoloft) 50 mg PO DAILY #90 tabs 07/03/24 acetaminophen 650 mg 650 mg PO Q8H PRN pain #90 tabs 07/26/24 tablet,extended release Allergies Allergy/AdvReac Type Severity Reaction Status Date / Time Sulfa (Sulfonamide Allergy Severe Rash Verified 08/09/24 14:03 Antibiotics) Review of Systems <Karin Sanchez PA-C - Last Filed: 08/09/24 18:59> Review of Systems Narrative: Negative except as above Musculoskeletal Comments: Right-sided unilateral lower leg extremity swelling with no pain and no recent injury Patient History <Karin Sanchez PA-C - Last Filed: 08/09/24 18:59> Medical History Inflamed seborrheic keratosis Low back pain with sciatica Vision disorder Fibroids Herniated disc History of restless legs syndrome (~2004) Acne (~1959) Mumps (~1960) Measles (~194) Chicken pox Hemorrhoid (~1964) Surgical History History of breast biopsy (~1981) Status post hemorrhoidectomy (~1984) Status post hysterectomy (~1981) Family History Father Stroke Mother No problems noted. Social History marital status: household members: spouse Smoking Status: Never smoker alcohol intake: never Smoking Status: Never smoker Substance Use Type: does not use Exam <Karin Sanchez PA-C - Last Filed: 08/09/24 18:59> Initial Vital Signs Initial Vital Signs: Vital Signs Temperature 97.5 F L 08/09/24 14:01 Pulse Rate 84 08/09/24 14:01 Respiratory Rate 18 08/09/24 14:01 Blood Pressure 139/65 08/09/24 14:01 Pulse Oximetry 98 08/09/24 14:01 Oxygen Delivery Method Room Air 08/09/24 14:01 Reviewed Const General: cooperative, comfortable, well groomed, No acute distress, No in distress, No anxious and frail appearing Nutritional Appearance: thin Eyes General: Yes appearance normal, both eyes and all related structures Pupils: PERRL EOM: EOM intact bilaterally Skin Other: Some minor bruising to the lateral right lower extremity. 3+ edema. Cap refill is slightly delayed. Pulses are palpable but slightly weak. No varicosities. No signs of cellulitis. 3+ edema. Up to the knee. Neuro Other: Cranial nerves are grossly intact the patient is appropriate, she is interactive, she answers simple yes and no questions, her cognition seems to be intact. Gait is not evaluated. After discussing with family it appears as if the patient is going to be taken to [place] to be evaluated by a neurologist for possible Parkinson's. Extrem Other: Left calf 12-1/2 inches Right calf 15-1/2 inches Right calf 3+ edema Small bruising noted to the right lateral calf Right lower extremity mild delayed cap refill, pulses are present., no cords, no palpation or pain with palpation to the calf. Psych Other: Apparent she is well-kept, mental status is at baseline, speech, movement, mood, affect, attitude, thought process, thought content seem to be within normal limits. <Nahed Silva MD - Last Filed: 08/09/24 19:00> Initial Vital Signs Initial Vital Signs: Vital Signs Temperature 97.5 F L 08/09/24 14:01 Pulse Rate 84 08/09/24 14:01 Respiratory Rate 18 08/09/24 14:01 Blood Pressure 139/65 08/09/24 14:01 Pulse Oximetry 98 08/09/24 14:01 Oxygen Delivery Method Room Air 08/09/24 14:01 Scores <Karin Sanchez PA-C - Last Filed: 08/09/24 18:59> GCS Citation: 15 Course <Karin Sanchez PA-C - Last Filed: 08/09/24 18:59> Orders Ordered: ED Orders 08/09/24 14:06 US periph venous low extrem rt Stat Vital Signs Vital signs: Vital Signs - 8 hr 08/09/24 14:01 08/09/24 16:48 Temperature 97.5 F L 98.4 F Pulse Rate 84 81 Respiratory Rate 18 18 Blood Pressure 139/65 174/74 H Pulse Oximetry 98 99 Oxygen Delivery Method Room Air Reviewed <Nahed Silva MD - Last Filed: 08/09/24 19:00> Orders Ordered: ED Orders 08/09/24 14:06 US periph venous low extrem rt Stat Vital Signs Vital signs: Vital Signs - 8 hr 08/09/24 14:01 08/09/24 16:48 Temperature 97.5 F L 98.4 F Pulse Rate 84 81 Respiratory Rate 18 18 Blood Pressure 139/65 174/74 H Pulse Oximetry 98 99 Oxygen Delivery Method Room Air MDM - Extremity (Nontraumatic) <Karin Sanchez PA-C - Last Filed: 08/09/24 18:59> Imaging Data US - DVT: Radiologist's Impression: [address] [address] Ultrasound Report Signed Patient: Alysa Farmer MR#: [id number] : 1940 Acct:[id number] Age/Sex: 84 / F Date of Service: 08/09/24 Loc: ED Accession Number: [id number] Procedure: US periph venous low extrem rt Ordering Provider: Nahed Silva MD PROCEDURE: US PERIP VENOUS LOW EXTREM RT INDICATIONS: right leg swelling TECHNIQUE: Real-time imaging, as well as color and pulse Doppler interrogation, were performed of the lower extremity deep veins from the inguinal ligament to the popliteal fossa, with documentation of the visualized calf veins. COMPARISON: None. FINDINGS: The common femoral, femoral, popliteal, and the visualized calf veins are normally compressible, and free of intraluminal thrombus. Color and pulse Doppler demonstrate normal phasic intraluminal flow. There is normal augmentation response to distal compression maneuver. A prominent right groin lymph node can be seen. Prominent lower extremity edema can be seen involving the calf. IMPRESSION: No findings of lower extremity deep venous thrombosis. Note: Concordant preliminary findings given by the geothermal technician upon the completion of the examination to nurse Olivia Sanchez at 3:30 p.m. on August 09, 2024. Dictated by: Damian Dobson M.D. on 08/09/2024 at 14:42 Approved by: Damian Dobson M.D. on 08/09/2024 at 14:43 MDM Narrative Medical decision making narrative: Pleasant 84-year-old female that presented to the emergency department with her family on the behest of the in-home nurse who saw her today with concerns of unilateral right lower extremity edema. Concerns for rule out DVT. No pain, negative Homans sign, no cords, no pain on exam, 3+ edema. No other positive findings on exam. Ultrasound is negative for DVT Spent a great deal of time with the family discussing her ongoing medical issues, and discuss with them things that I would discuss with the primary care doctor at her appointment on Tuesday. Patient discharged in stable condition, Differential diagnosis; DVT, deconditioning, restless leg syndrome, lymphedema, peripheral artery disease, peripheral vascular disease, varicosities, untreated hypertension, heart failure. Fluid overload. Discharge Plan Departure Patient Disposition: Home Clinical Impression: Edema, lower extremity, Lower extremity edema Activity Restrictions/Additional Instructions: Please elevate the legs DVT scan is negative for DVT Please talk to your primary care doctor about your Lasix Please talk to your doctor about potassium supplementation Please consider Freedom hose but thigh highs Please attempt to walk at home with a walker as much as he possibly can While sitting try to do calf pumps all of these are going to help decrease the edema in your extremities Please talk to your doctor about the restless leg syndrome, the pins and needles, the burning sensation that you have in your lower extremities Continue all your medications as prescribed Return to the emergency department as needed Prescriptions: No Action docusate sodium [Stool Softener] 100 mg capsule 200 mg PO DAILY PRN (Reason: Constipation) Rx Instructions: a few times a week furosemide 40 mg tablet 40 mg PO DAILY Qty: 90 1RF meloxicam 7.5 mg tablet 7.5 mg PO QAM Qty: 30 3RF lidocaine 5 % adhesive patch,medicated 1 patch topical DAILY Qty: 30 5RF sertraline [Zoloft] 50 mg tablet 50 mg PO DAILY Qty: 90 1RF quetiapine 25 mg tablet 25 mg PO BEDTIME Qty: 30 3RF Rx Instructions: start off taking 1/2 tablet at bedtime, may increase to a full tablet if needed acetaminophen 650 mg tablet extended release 650 mg PO Q8H PRN (Reason: pain) Qty: 90 0RF Referrals: Thad Mclean MD [Primary Care Provider] - Stand Alone Forms: Patient Portal/API ED Sign-out <Nahed Silva MD - Last Filed: 08/09/24 19:00> Cosign ED Attending Malik Attestation: I was immediately available in the department for consultation throughout this patient's visit. Nahed Silva MD
[2024-08-09 16:48] VITALS: BP 174/74; PULSE 81; RESP 18; TEMP 36.9; O2SAT 99
== END 2024-08-09 16:58 | disposition home or self-care (01) ==
PROVIDERS: Emergency Provider Physician Assistant; Family Provider Family Medicine; PCP Family Medicine
DX: R60.0 Localized edema (principal)
CPT/HCPCS: 93971; 99281; 99283

== ENCOUNTER 2025-04-04 14:30 | Outpatient (RCR) | payer OTHER, SELFPAY ==
[2024-06-02 10:08] VITALS: BMI 24.2
--- NOTE | 2025-02-27 16:54 | PT.OIE ---
Current Diagnoses Parkinsonism, unspecified (02/27/25) Past Medical History (Last Reviewed 08/09/24 @ 18:53 by Karin Sanchez PA-C) Acne (~1959) Chicken pox Fibroids Hemorrhoid (~1964) Herniated disc History of restless legs syndrome (~2004) Inflamed seborrheic keratosis Low back pain with sciatica Measles (~1949) Mumps (~196) Vision disorder Past Surgical History (Last Reviewed 08/09/24 @ 18:53 by Karin Sanchez PA-C) History of breast biopsy (~1981) Status post hemorrhoidectomy (~1984) Status post hysterectomy (~1981) Visit Care Team Role Provider Type Thad Mclean MD Family Provider Physician Primary Care Provider Specialty: Family Practice Address: [address] [place] [address], [facility] [address], [place], [address] Email: 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 She fell backwards on a rock pile and broke her left shoulder and injured her head and had to have kenyetta. She has what is presenting as a frozen shoulder and is seeing PT at outside clinic for this and will drop to Saturdays at this time. Current complaints include shuffling feet and balance trouble. Pt lives with her and she does not drive . Her NEGRITO brings her to PT. Pt has back pain d/t arthritis of the spine and left shoulder pain. She takes carbidopa levodopa and it is helpful for her walking and balance. Pt has a cane. Pt has had about 6 falls since last summer. It seems like she loses her balance easily. She is right handed. She is I with bathing and dressing since the left shoulder injury. She feels that her right side is affected more by her PD. Treatment Goals Patient/Caregiver Goals To improve walking and balance PT-OP-C Subjective Start: 02/13/25 08:09 Freq: Status: Active Protocol: Document 02/27/25 14:30 MB (Rec: 02/27/25 15:17 MB Desktop) OP-PT Subjective Patient Comments Patient Comments See history of current condition. PT-OP-G Mobility & Gait Start: 02/13/25 08:09 Freq: Status: Active Protocol: Document 02/27/25 14:30 MB (Rec: 02/27/25 15:17 MB Desktop) OP Gait Assessment Comments Gait Comments Shuffling gait and pt does not use SPC effectively: she leaves it hanging on the desk and then tends to carry it in her right hand and not to advance it with her left foot PT-OP-H Neuro Start: 02/13/25 08:09 Freq: Status: Active Protocol: Document 02/27/25 14:30 MB (Rec: 02/27/25 15:17 MB Desktop) Coordination Evaluation Upper Extremity Tests Left Finger to Nose Test Moderate Impairment Pronation/Supination Test Minimal Impairment Right Finger to Nose Test Minimal Impairment Pronation/Supination Test Minimal Impairment Lower Extremity Tests Left Heel on Carreon Test Minimal Impairment Right Heel on Carreon Test Moderate Impairment Vital Signs Comments Vital Signs Comments Orthostatic assessment with BP and HR in RUE: supine: 151/67 , 76; standing 97/51, 77; standing 1' 97/53, 77. PT-OP-M Strength Start: 02/13/25 08:09 Freq: Status: Active Protocol: Document 02/27/25 14:30 MB (Rec: 02/27/25 15:17 MB Desktop) Shoulder Strength Shoulder Manual Muscle Testing Left Comments Pt has impaired left shoulder flexion and abduction in setting of left shoulder injury/repair, did not MMT left shoulder Right Flexion 4+ Good+ Abduction (C5) 4 Good Comments Pt has limited right shoulder flexion and abduction Elbow/Forearm Strength Elbow and Forearm Manual Muscle Testing Left Flexion (C6) 4+ Good+ Extension (C7) 5 Normal Right Flexion (C6) 4+ Good+ Extension (C7) 5 Normal Hip Strength Hip Manual Muscle Testing Left Flexion (L2) 4 Good Right Flexion (L2) 4+ Good+ Comments All MMT performed in sitting Knee Strength Knee Manual Muscle Testing Left Flexion (S2) 4+ Good+ Extension (L3) 5 Normal Right Flexion (S2) 4+ Good+ Extension (L3) 5 Normal Ankle/Foot Strength Ankle and Foot Manual Muscle Testing Left Dorsiflexion (L4) 4 Good Right Dorsiflexion (L4) 4 Good Toe Strength Toe Manual Muscle Testing Left Great Toe Extension 4+ Good+ Right Great Toe Extension 4+ Good+ PT-OP-Q Treatments Start: 02/13/25 08:09 Freq: Status: Active Protocol: Document 02/27/25 14:30 MB (Rec: 02/27/25 15:17 MB Desktop) Therapeutic Exercises Sitting Exercises 30 sec STS Comments 4 reps in 30 sec with heavy leg support against black high low table Gait Training Gait Activity Gait with and without cane, BIG ed Comments Pt has trouble using cane in right hand effectively: tends to carry it or take extra long steps or advance with same leg, pt's gait is better without cane and initiated training for big arm swing with opposite leg with stepping Neuro Re-Education Treatment Balance Activities TUG Comments Three trials without AD: 16 sec, 16 sec, 15 sec Self-Care/Home Management Treatment Education Patient Education Fall Risk,Home Exercise Program,Posture,Safety Other Education Educated pt on homework to come up with 5 possible functional tasks to work on during treatment, flow of LSVT BIG as far as exercises, BIG walking and functional activities, ed pt that expectation will be for HEP 2x /day on non-BIG days and once a day on BIG days and that will try to modify BIG exercises as best as possible given left shoulder issues and will have to see (perhaps adapted exercises with the chair for support), also ed on goal to get pt ambulating safely without the cane given difficulty with it today, ed and handouts about orthostatic hypotension and that PT will send this note to Dr. Mclean as well to let him know about her profound drop in systolic and diastolic BPs supine to stand today, handout on what to do and what not to do with orthostasis and ed pt to discuss with family, neurologist and Dr. Mclean and consider medication review PT-OP-T Assessment and Plan Start: 02/13/25 08:09 Freq: Status: Active Protocol: Document 02/27/25 14:30 MB (Rec: 02/27/25 16:51 MB Desktop) Physical Therapy Assessment Rehab Potential Rehabilitation Potential Fair Evaluation Complexity Number of Personal Factors/Comorbidities 1-2 Number of Body Systems Impaired 3 Clinical Presentation at Evaluation Unstable Impairments Impairments Activity Tolerance,Balance, Coordination,Functional Activities,Functional Mobility ,Gait,Pain,Posture,ROM, Strength,Transfers Goals 4 Impairment Lack of amplitude specific HEP Prison Goal (LTG) Pt will perform HEP with I including LSVT BIG exercises, BIG walking and functional tasks to improve amplitude and quality of movement. LTG Duration 5 weeks 3 Impairment 4 STS in 30 sec Prison Goal (LTG) Pt will perform at least 9 STS in 30 sec to improve functional strength with transfers. LTG Duration 5 weeks 2 Impairment Decreased gait speed Remote Computer Terminal Operator Goal (LTG) Pt will gait train at least 1, 176 feet with or without AD in 6 minutes to improve community ambulation. LTG Duration 5 weeks 1 Impairment Evidence of imbalance Prison Goal (LTG) Pt will perform TUG in less than 10 sec without AD to decrease fall risk. LTG Duration 5 weeks Assessment Summary Assessment Pt is an 84 y/o female dx with PD last year. About a year ago, she fell and fractured her left shoulder and also injured her head. She underwent left shoulder surgery and is currently undergoing PT for her left shoulder at another OPPT clinic on Saturdays so that she can do LSVT BIG. Pt is severely orthostatic on assessment today with a greater than 50 mmHg systolic drop and greater than 10 diastolic diastolic drop supine to stand. BP did not recover after a minute of standing. Will send a copy of this assessment to her PCP, Dr Chaparrita Mclean. Pt may have trouble with LSVT BIG exercises given her left shoulder changes and limitations but will initiate program as she is motivated to work on her balance and gait. Her gait with SPC is quite inefficient and she already makes gains with short gait training today. Will monitor BP during treatment course. Physical Therapy Plan Frequency and Duration Frequency of Treatment 16 treatments Duration of treatment (weeks) 5 Plan of Care Start Date 02/27/25 Plan of Care End Date 04/08/25 Therapeutic Interventions Therapeutic Interventions Balance Training,Canalithic Repositioning,Coordination Training,Gait Training,Home Exercise Program,Manual Therapy,Neuromuscular Re- education,Patient/Caregiver Education,Self-Care/Home Management,Soft Tissue Mobilization,Taping, Therapeutic Activities, Therapeutic Exercises Modalities Cold Pack/Ice Massage,Hot Packs Next Visit Focus/Plan Next Note Type Treatment Note Next Visit Plan Initiate LSVT BIG exercises, likely adapted exercises using chair support for balance for standing exercises, pick functional tasks to perform during course Keep eye on orthostatics Anticipate better left arm movement with arm swing cues during treatment course
--- NOTE | 2025-02-27 16:54 | PT.OPPOC ---
Physical, Occupational & Speech Therapy At [facility] Current Diagnoses Parkinsonism, unspecified (02/27/25) Visit Care Team Role Provider Type Thad Mclean MD Family Provider Physician Primary Care Provider Specialty: Family Practice Address: [address] [place] [address], [facility] [address], [place], [address] Email: [email or web address] Ty Bradford MD, PHD Attending Provider Non-Staff Referring Provider Specialty: Internal Medicine Address: [address] [place] [address], [address], [place], [address] Email: Plan Of Care PT-OP-B Current Condition Start: 02/13/25 08:09 Freq: Status: Active Protocol: Document 02/27/25 14:30 MB (Rec: 02/27/25 15:17 MB Desktop) Current Condition History of Current Condition Onset Date August 2024 Current Complaints Shuffling of feet and imbalance History of Current Condition Pt reports a fall a year ago when she was picking wildflowers. She fell backwards on a rock pile and broke her left shoulder and injured her head and had to have kenyetta. She has what is presenting as a frozen shoulder and is seeing PT at outside clinic for this and will drop to Saturdays at this time. Current complaints include shuffling feet and balance trouble. Pt lives with her and she does not drive . Her NEGRITO brings her to PT. Pt has back pain d/t arthritis of the spine and left shoulder pain. She takes carbidopa levodopa and it is helpful for her walking and balance. Pt has a cane. Pt has had about 6 falls since last summer. It seems like she loses her balance easily. She is right handed. She is I with bathing and dressing since the left shoulder injury. She feels that her right side is affected more by her PD. Treatment Goals Patient/Caregiver Goals To improve walking and balance PT-OP-T Assessment and Plan Start: 02/13/25 08:09 Freq: Status: Active Protocol: Document 02/27/25 14:30 MB (Rec: 02/27/25 16:51 MB Desktop) Physical Therapy Assessment Rehab Potential Rehabilitation Potential Fair Evaluation Complexity Number of Personal Factors/Comorbidities 1-2 Number of Body Systems Impaired 3 Clinical Presentation at Evaluation Unstable Impairments Impairments Activity Tolerance,Balance, Coordination,Functional Activities,Functional Mobility ,Gait,Pain,Posture,ROM, Strength,Transfers Goals 4 Impairment Lack of amplitude specific HEP Chemical Strength Tester Goal (LTG) Pt will perform HEP with I including LSVT BIG exercises, BIG walking and functional tasks to improve amplitude and quality of movement. LTG Duration 5 weeks 3 Impairment 4 STS in 30 sec Detention Goal (LTG) Pt will perform at least 9 STS in 30 sec to improve functional strength with transfers. LTG Duration 5 weeks 2 Impairment Decreased gait speed Chemical Strength Tester Goal (LTG) Pt will gait train at least 1, 176 feet with or without AD in 6 minutes to improve community ambulation. LTG Duration 5 weeks 1 Impairment Evidence of imbalance Chemical Strength Tester Goal (LTG) Pt will perform TUG in less than 10 sec without AD to decrease fall risk. LTG Duration 5 weeks Assessment Summary Assessment Pt is an 84 y/o female dx with PD last year. About a year ago, she fell and fractured her left shoulder and also injured her head. She underwent left shoulder surgery and is currently undergoing PT for her left shoulder at another OPPT clinic on Saturdays so that she can do LSVT BIG. Pt is severely orthostatic on assessment today with a greater than 50 mmHg systolic drop and greater than 10 diastolic diastolic drop supine to stand. BP did not recover after a minute of standing. Will send a copy of this assessment to her PCP, Dr Chaparrita Mclean. Pt may have trouble with LSVT BIG exercises given her left shoulder changes and limitations but will initiate program as she is motivated to work on her balance and gait. Her gait with SPC is quite inefficient and she already makes gains with short gait training today. Will monitor BP during treatment course. Physical Therapy Plan Frequency and Duration Frequency of Treatment 16 treatments Duration of treatment (weeks) 5 Plan of Care Start Date 02/27/25 Plan of Care End Date 04/08/25 Therapeutic Interventions Therapeutic Interventions Balance Training,Canalithic Repositioning,Coordination Training,Gait Training,Home Exercise Program,Manual Therapy,Neuromuscular Re- education,Patient/Caregiver Education,Self-Care/Home Management,Soft Tissue Mobilization,Taping, Therapeutic Activities, Therapeutic Exercises Modalities Cold Pack/Ice Massage,Hot Packs Next Visit Focus/Plan Next Note Type Treatment Note Next Visit Plan Initiate LSVT BIG exercises, likely adapted exercises using chair support for balance for standing exercises, pick functional tasks to perform during course Keep eye on orthostatics Anticipate better left arm movement with arm swing cues during treatment course Plan of Care Dates Plan of Care Start Date 02/27/25 Plan of Care End Date 04/08/25 Electronically Signed by: Brooke Winters, PT 02/27/25 1067 If you are in agreement with this Plan of Care, please return a signed and dated copy. I have reviewed this Plan of Care and certify that the skilled therapy services above are required to meet the patient?s needs. Physician Signature Date Printed Name and Credentials Clinical Instructor Signature Printed Name and Credentials
--- NOTE | 2025-02-28 15:32 | PT.OTN ---
Current Diagnoses Parkinsonism, unspecified (02/28/25) Physical Therapy Treatment Note PT-OP-A Visit Information Start: 02/13/25 08:09 Freq: Status: Active Protocol: Document 02/28/25 14:38 SP (Rec: 02/28/25 15:26 SP [id number]) Out-Patient Physical Therapy Visit Information Visit Information Visit Type Treatment Note Visit Note No KX SPTA Dalia observed tx instruction by HEAD LIBRARIAN Donna with permission of pt. Visit Start Time 14:32 Visit Stop Time 15:32 Visit Number 60 Number of HEAD LIBRARIAN Visits 1 Evaluation Information Evaluation Date 02/27/25 Precautions Precautions Left frozen shoulder per pt report after fracture, severely orthostatic on assessment PT-OP-B Current Condition Start: 02/13/25 08:09 Freq: Status: Active Protocol: Document 02/27/25 14:30 MB (Rec: 02/27/25 15:17 MB Desktop) Current Condition History of Current Condition Onset Date August 2024 Current Complaints Shuffling of feet and imbalance History of Current Condition Pt reports a fall a year ago when she was picking wildflowers. She fell backwards on a rock pile and broke her left shoulder and injured her head and had to have kenyetta. She has what is presenting as a frozen shoulder and is seeing PT at outside clinic for this and will drop to Saturdays at this time. Current complaints include shuffling feet and balance trouble. Pt lives with her and she does not drive . Her NEGRITO brings her to PT. Pt has back pain d/t arthritis of the spine and left shoulder pain. She takes carbidopa levodopa and it is helpful for her walking and balance. Pt has a cane. Pt has had about 6 falls since last summer. It seems like she loses her balance easily. She is right handed. She is I with bathing and dressing since the left shoulder injury. She feels that her right side is affected more by her PD. Treatment Goals Patient/Caregiver Goals To improve walking and balance PT-OP-C Subjective Start: 02/13/25 08:09 Freq: Status: Active Protocol: Document 02/28/25 14:38 SP (Rec: 02/28/25 15:26 SP [id number]) OP-PT Subjective Patient Comments Patient Comments Pt arrives with functional tasks. Wants to move overall better less SPC. PT-OP-G Mobility & Gait Start: 02/13/25 08:09 Freq: Status: Active Protocol: Document 02/27/25 14:30 MB (Rec: 02/27/25 15:17 MB Desktop) OP Gait Assessment Comments Gait Comments Shuffling gait and pt does not use SPC effectively: she leaves it hanging on the desk and then tends to carry it in her right hand and not to advance it with her left foot PT-OP-H Neuro Start: 02/13/25 08:09 Freq: Status: Active Protocol: Document 02/27/25 14:30 MB (Rec: 02/27/25 15:17 MB Desktop) Coordination Evaluation Upper Extremity Tests Left Finger to Nose Test Moderate Impairment Pronation/Supination Test Minimal Impairment Right Finger to Nose Test Minimal Impairment Pronation/Supination Test Minimal Impairment Lower Extremity Tests Left Heel on Carreon Test Minimal Impairment Right Heel on Carreon Test Moderate Impairment Vital Signs Comments Vital Signs Comments Orthostatic assessment with BP and HR in RUE: supine: 151/67 , 76; standing 97/51, 77; standing 1' 97/53, 77. PT-OP-M Strength Start: 02/13/25 08:09 Freq: Status: Active Protocol: Document 02/27/25 14:30 MB (Rec: 02/27/25 15:17 MB Desktop) Shoulder Strength Shoulder Manual Muscle Testing Left Comments Pt has impaired left shoulder flexion and abduction in setting of left shoulder injury/repair, did not MMT left shoulder Right Flexion 4+ Good+ Abduction (C5) 4 Good Comments Pt has limited right shoulder flexion and abduction Elbow/Forearm Strength Elbow and Forearm Manual Muscle Testing Left Flexion (C6) 4+ Good+ Extension (C7) 5 Normal Right Flexion (C6) 4+ Good+ Extension (C7) 5 Normal Hip Strength Hip Manual Muscle Testing Left Flexion (L2) 4 Good Right Flexion (L2) 4+ Good+ Comments All MMT performed in sitting Knee Strength Knee Manual Muscle Testing Left Flexion (S2) 4+ Good+ Extension (L3) 5 Normal Right Flexion (S2) 4+ Good+ Extension (L3) 5 Normal Ankle/Foot Strength Ankle and Foot Manual Muscle Testing Left Dorsiflexion (L4) 4 Good Right Dorsiflexion (L4) 4 Good Toe Strength Toe Manual Muscle Testing Left Great Toe Extension 4+ Good+ Right Great Toe Extension 4+ Good+ PT-OP-Q Treatments Start: 02/13/25 08:09 Freq: Status: Active Protocol: Document 02/28/25 14:38 SP (Rec: 02/28/25 15:26 SP [id number]) Therapeutic Exercises Sitting Exercises BIG Sit to Stand Resistance has to push up with RUE Equipment Used BIG Chair Reps/Minutes 5 reps Comments cued forward reach, arms at side palms forward, then reach & bend fwd sit BIG Side Reach Equipment Used BIG Chair Reps/Minutes 5 reps 10 SH each side Comments Model side sit in chair, cue leg back faustino, arm up front, opp hand on seat BIG floor ceiling Sitting Exercise Name Limited LUE Reps/Minutes 5 reps 10 SH Comments cued reach front, down toward floor, reach high can, arms out to side Standing Exercises BIG Adaptive Side Rock and Reach Standing Exercise Name next tx BIG Adaptive Rock and Reach Standing Exercise Name added to HEP with HO Side bilateral Reps/Minutes 10 reps each side Comments challenged feet indpentent & trunk wt shift, cued front to up, back heel up BIG Adaptive Back Step Standing Exercise Name added to HEP with HO Side bilateral Reps/Minutes 5 reps each side Comments cued smaller step back, arm up back, hip hinge fwd, front toe up BIG Adaptive Side Step Standing Exercise Name added to HEP with HO Side bilateral Reps/Minutes 5 reps each side Comments Cued smaller side stride, head turn, feet side by side hand on lap return BIG Adaptive Forward Step Standing Exercise Name added to HEP with HO Side bilateral Resistance *able LUE range faustino, no pain Equipment Used BIG chair support 1 hand Reps/Minutes 5 reps each side Comments cued arms out side, smaller step forward, return side by side, hand lap Therapeutic Activity Therapeutic Activity carrying items Name initiated in PT Reps/Minutes 5 reps Comments lift 5# leg wt use leg front table, marching step pivot BIG steps walk carrying close to body to chair, wider MONA, hip hinge buttocks back place into BIG chair licensed retail supervisor assimilation- improved form pick/put down/march step turning, carrying close to body. Gait Training Gait Activity Gait with and without cane, BIG ed Comments Pt challenged patterning SPC in RUE consistant 2pt gait with LLE. Trialed without, with cues for BIGGER arms swing, increase stride, awareness of maintain increased MONA feet away from each other occ cuing, education self recheck BIG feeling. Better form with distance. She states will do in driveway [facility] home. PT-OP-T Assessment and Plan Start: 02/13/25 08:09 Freq: Status: Active Protocol: Document 02/28/25 14:38 SP (Rec: 02/28/25 15:26 SP [id number]) Physical Therapy Assessment Goals 4 Impairment Lack of amplitude specific HEP Correction Goal (LTG) Pt will perform HEP with I including LSVT BIG exercises, BIG walking and functional tasks to improve amplitude and quality of movement. LTG Duration 5 weeks 3 Impairment 4 STS in 30 sec Case Resolution Specialist Goal (LTG) Pt will perform at least 9 STS in 30 sec to improve functional strength with transfers. LTG Duration 5 weeks 2 Impairment Decreased gait speed Correction Goal (LTG) Pt will gait train at least 1, 176 feet with or without AD in 6 minutes to improve community ambulation. LTG Duration 5 weeks 1 Impairment Evidence of imbalance Correction Goal (LTG) Pt will perform TUG in less than 10 sec without AD to decrease fall risk. LTG Duration 5 weeks Assessment Summary Assessment Pt tolerated BIG ex with model and shape cuing for proper form. Challenged with BIG rock reach tends to lift both feet toes/heels and round low back , improve cuing tall posture and wt shift between BLEs with tactile cuing. Was able to use LUE but limited to range felt comfortable with no reports pain. CHallenged with education 2pt gait with SPC improved form BIG arm swing wtih legs as distance progressed, no LOB deviations. CUes for smaller stride for side and back step. Better form picking items with legs and foot clearance to put onto another surface for safety in kitchen. Understands HEP 2x/ day 7 days week, provided HOs and flow sheet to use. PRovided caregiver ed HO and BIG Amplitude HO for self calibration awareness. Physical Therapy Plan Frequency and Duration Frequency of Treatment 16 treatments Duration of treatment (weeks) 5 Plan of Care Start Date 02/27/25 Plan of Care End Date 04/08/25 Therapeutic Interventions Therapeutic Interventions Balance Training,Canalithic Repositioning,Coordination Training,Gait Training,Home Exercise Program,Manual Therapy,Neuromuscular Re- education,Patient/Caregiver Education,Self-Care/Home Management,Soft Tissue Mobilization,Taping, Therapeutic Activities, Therapeutic Exercises Modalities Cold Pack/Ice Massage,Hot Packs Next Visit Focus/Plan Next Note Type Treatment Note Next Visit Plan Initiate LSVT BIG exercises, likely adapted exercises using chair support for balance for standing exercises, pick functional tasks to perform during course Keep eye on orthostatics Anticipate better left arm movement with arm swing cues during treatment course
--- NOTE | 2025-02-28 15:32 | PT.OTN ---
Current Diagnoses Parkinsonism, unspecified (02/28/25) Physical Therapy Treatment Note PT-OP-A Visit Information Start: 02/13/25 08:09 Freq: Status: Active Protocol: Document 02/28/25 14:38 SP (Rec: 02/28/25 15:26 SP [id number]) Out-Patient Physical Therapy Visit Information Visit Information Visit Type Treatment Note Visit Note No KX Visit Start Time 14:32 Visit Stop Time 15:32 Visit Number 60 Number of BOX SPRING MAKER Visits 1 Evaluation Information Evaluation Date 02/27/25 Precautions Precautions Left frozen shoulder per pt report after fracture, severely orthostatic on assessment PT-OP-B Current Condition Start: 02/13/25 08:09 Freq: Status: Active Protocol: Document 02/27/25 14:30 MB (Rec: 02/27/25 15:17 MB Desktop) Current Condition History of Current Condition Onset Date August 2024 Current Complaints Shuffling of feet and imbalance History of Current Condition Pt reports a fall a year ago when she was picking wildflowers. She fell backwards on a rock pile and broke her left shoulder and injured her head and had to have kenyetta. She has what is presenting as a frozen shoulder and is seeing PT at outside clinic for this and will drop to Saturdays at this time. Current complaints include shuffling feet and balance trouble. Pt lives with her and she does not drive . Her NEGRITO brings her to PT. Pt has back pain d/t arthritis of the spine and left shoulder pain. She takes carbidopa levodopa and it is helpful for her walking and balance. Pt has a cane. Pt has had about 6 falls since last summer. It seems like she loses her balance easily. She is right handed. She is I with bathing and dressing since the left shoulder injury. She feels that her right side is affected more by her PD. Treatment Goals Patient/Caregiver Goals To improve walking and balance PT-OP-C Subjective Start: 02/13/25 08:09 Freq: Status: Active Protocol: Document 02/28/25 14:38 SP (Rec: 02/28/25 15:26 SP [id number]) OP-PT Subjective Patient Comments Patient Comments Pt arrives with functional tasks. Wants to move overall better less SPC. PT-OP-G Mobility & Gait Start: 02/13/25 08:09 Freq: Status: Active Protocol: Document 02/27/25 14:30 MB (Rec: 02/27/25 15:17 MB Desktop) OP Gait Assessment Comments Gait Comments Shuffling gait and pt does not use SPC effectively: she leaves it hanging on the desk and then tends to carry it in her right hand and not to advance it with her left foot PT-OP-H Neuro Start: 02/13/25 08:09 Freq: Status: Active Protocol: Document 02/27/25 14:30 MB (Rec: 02/27/25 15:17 MB Desktop) Coordination Evaluation Upper Extremity Tests Left Finger to Nose Test Moderate Impairment Pronation/Supination Test Minimal Impairment Right Finger to Nose Test Minimal Impairment Pronation/Supination Test Minimal Impairment Lower Extremity Tests Left Heel on Carreon Test Minimal Impairment Right Heel on Carreon Test Moderate Impairment Vital Signs Comments Vital Signs Comments Orthostatic assessment with BP and HR in RUE: supine: 151/67 , 76; standing 97/51, 77; standing 1' 97/53, 77. PT-OP-M Strength Start: 02/13/25 08:09 Freq: Status: Active Protocol: Document 02/27/25 14:30 MB (Rec: 02/27/25 15:17 MB Desktop) Shoulder Strength Shoulder Manual Muscle Testing Left Comments Pt has impaired left shoulder flexion and abduction in setting of left shoulder injury/repair, did not MMT left shoulder Right Flexion 4+ Good+ Abduction (C5) 4 Good Comments Pt has limited right shoulder flexion and abduction Elbow/Forearm Strength Elbow and Forearm Manual Muscle Testing Left Flexion (C6) 4+ Good+ Extension (C7) 5 Normal Right Flexion (C6) 4+ Good+ Extension (C7) 5 Normal Hip Strength Hip Manual Muscle Testing Left Flexion (L2) 4 Good Right Flexion (L2) 4+ Good+ Comments All MMT performed in sitting Knee Strength Knee Manual Muscle Testing Left Flexion (S2) 4+ Good+ Extension (L3) 5 Normal Right Flexion (S2) 4+ Good+ Extension (L3) 5 Normal Ankle/Foot Strength Ankle and Foot Manual Muscle Testing Left Dorsiflexion (L4) 4 Good Right Dorsiflexion (L4) 4 Good Toe Strength Toe Manual Muscle Testing Left Great Toe Extension 4+ Good+ Right Great Toe Extension 4+ Good+ PT-OP-Q Treatments Start: 02/13/25 08:09 Freq: Status: Active Protocol: Document 02/28/25 14:38 SP (Rec: 02/28/25 15:26 SP [id number]) Therapeutic Exercises Sitting Exercises BIG Sit to Stand Resistance has to push up with RUE Equipment Used BIG Chair Reps/Minutes 5 reps Comments cued forward reach, arms at side palms forward, then reach & bend fwd sit BIG Side Reach Equipment Used BIG Chair Reps/Minutes 5 reps 10 SH each side Comments Model side sit in chair, cue leg back faustino, arm up front, opp hand on seat BIG floor ceiling Sitting Exercise Name Limited LUE Reps/Minutes 5 reps 10 SH Comments cued reach front, down toward floor, reach high can, arms out to side Standing Exercises BIG Adaptive Side Rock and Reach Standing Exercise Name next tx BIG Adaptive Rock and Reach Standing Exercise Name added to HEP with HO Side bilateral Reps/Minutes 10 reps each side Comments challenged feet indpentent & trunk wt shift, cued front to up, back heel up BIG Adaptive Back Step Standing Exercise Name added to HEP with HO Side bilateral Reps/Minutes 5 reps each side Comments cued smaller step back, arm up back, hip hinge fwd, front toe up BIG Adaptive Side Step Standing Exercise Name added to HEP with HO Side bilateral Reps/Minutes 5 reps each side Comments Cued smaller side stride, head turn, feet side by side hand on lap return BIG Adaptive Forward Step Standing Exercise Name added to HEP with HO Side bilateral Resistance *able LUE range faustino, no pain Equipment Used BIG chair support 1 hand Reps/Minutes 5 reps each side Comments cued arms out side, smaller step forward, return side by side, hand lap Therapeutic Activity Therapeutic Activity carrying items Name initiated in PT Reps/Minutes 5 reps Comments lift 5# leg wt use leg front table, marching step pivot BIG steps walk carrying close to body to chair, wider MONA, hip hinge buttocks back place into BIG chair business account manager assimilation- improved form pick/put down/march step turning, carrying close to body. Gait Training Gait Activity Gait with and without cane, BIG ed Comments Pt challenged patterning SPC in RUE consistant 2pt gait with LLE. Trialed without, with cues for BIGGER arms swing, increase stride, awareness of maintain increased MONA feet away from each other occ cuing, education self recheck BIG feeling. Better form with distance. She states will do in driveway family home. PT-OP-T Assessment and Plan Start: 02/13/25 08:09 Freq: Status: Active Protocol: Document 02/28/25 14:38 SP (Rec: 02/28/25 15:26 SP [id number]) Physical Therapy Assessment Goals 4 Impairment Lack of amplitude specific HEP Fdc Goal (LTG) Pt will perform HEP with I including LSVT BIG exercises, BIG walking and functional tasks to improve amplitude and quality of movement. LTG Duration 5 weeks 3 Impairment 4 STS in 30 sec Machine Rope Maker Goal (LTG) Pt will perform at least 9 STS in 30 sec to improve functional strength with transfers. LTG Duration 5 weeks 2 Impairment Decreased gait speed Machine Rope Maker Goal (LTG) Pt will gait train at least 1, 176 feet with or without AD in 6 minutes to improve community ambulation. LTG Duration 5 weeks 1 Impairment Evidence of imbalance Fdc Goal (LTG) Pt will perform TUG in less than 10 sec without AD to decrease fall risk. LTG Duration 5 weeks Assessment Summary Assessment Pt tolerated BIG ex with model and shape cuing for proper form. Challenged with BIG rock reach tends to lift both feet toes/heels and round low back , improve cuing tall posture and wt shift between BLEs with tactile cuing. Was able to use LUE but limited to range felt comfortable with no reports pain. CHallenged with education 2pt gait with SPC improved form BIG arm swing wtih legs as distance progressed, no LOB deviations. CUes for smaller stride for side and back step. Better form picking items with legs and foot clearance to put onto another surface for safety in kitchen. Understands HEP 2x/ day 7 days week, provided HOs and flow sheet to use. PRovided caregiver ed HO and BIG Amplitude HO for self calibration awareness. Physical Therapy Plan Frequency and Duration Frequency of Treatment 16 treatments Duration of treatment (weeks) 5 Plan of Care Start Date 02/27/25 Plan of Care End Date 04/08/25 Therapeutic Interventions Therapeutic Interventions Balance Training,Canalithic Repositioning,Coordination Training,Gait Training,Home Exercise Program,Manual Therapy,Neuromuscular Re- education,Patient/Caregiver Education,Self-Care/Home Management,Soft Tissue Mobilization,Taping, Therapeutic Activities, Therapeutic Exercises Modalities Cold Pack/Ice Massage,Hot Packs Next Visit Focus/Plan Next Note Type Treatment Note Next Visit Plan Continue LSVT BIG Standing Adaptive exercises chair support for balance. Functional Tasks: walking, Gardening uneven surfaces picking off [place]/ carrying bucket (doesn't get on ground), cooking lifting/ carrying items in different surfaces in kitchen, Shopping bal getting items off shelf ( or home cupboard) high/low, posture eating meal, get up from low chair/sofa. Keep eye on orthostatics Anticipate better left arm movement with arm swing cues during treatment course
--- NOTE | 2025-03-04 15:35 | PT.OTN ---
Current Diagnoses Parkinsonism, unspecified (03/04/25) Physical Therapy Treatment Note PT-OP-A Visit Information Start: 02/13/25 08:09 Freq: Status: Active Protocol: Document 03/04/25 14:31 MB (Rec: 03/04/25 15:35 MB Desktop) Out-Patient Physical Therapy Visit Information Visit Information Visit Type Treatment Note Visit Note No KX Visit Start Time 14:31 Visit Stop Time 15:31 Visit Number 60 Number of SHEET METAL WELDER Visits 0 Evaluation Information Evaluation Date 02/27/25 Precautions Precautions Left frozen shoulder per pt report after fracture, severely orthostatic on assessment PT-OP-B Current Condition Start: 02/13/25 08:09 Freq: Status: Active Protocol: Document 02/27/25 14:30 MB (Rec: 02/27/25 15:17 MB Desktop) Current Condition History of Current Condition Onset Date August 2024 Current Complaints Shuffling of feet and imbalance History of Current Condition Pt reports a fall a year ago when she was picking wildflowers. She fell backwards on a rock pile and broke her left shoulder and injured her head and had to have kenyetta. She has what is presenting as a frozen shoulder and is seeing PT at outside clinic for this and will drop to Saturdays at this time. Current complaints include shuffling feet and balance trouble. Pt lives with her and she does not drive . Her NEGRITO brings her to PT. Pt has back pain d/t arthritis of the spine and left shoulder pain. She takes carbidopa levodopa and it is helpful for her walking and balance. Pt has a cane. Pt has had about 6 falls since last summer. It seems like she loses her balance easily. She is right handed. She is I with bathing and dressing since the left shoulder injury. She feels that her right side is affected more by her PD. Treatment Goals Patient/Caregiver Goals To improve walking and balance PT-OP-C Subjective Start: 02/13/25 08:09 Freq: Status: Active Protocol: Document 03/04/25 14:31 MB (Rec: 03/04/25 15:35 MB Desktop) OP-PT Subjective Patient Comments Patient Comments Pt got through the exercises over the weekend. Her left shoulder is sore but fine. She thinks that reaching up into the cupboard and working on walking are her functional activities she would like to work on. PT-OP-G Mobility & Gait Start: 02/13/25 08:09 Freq: Status: Active Protocol: Document 02/27/25 14:30 MB (Rec: 02/27/25 15:17 MB Desktop) OP Gait Assessment Comments Gait Comments Shuffling gait and pt does not use SPC effectively: she leaves it hanging on the desk and then tends to carry it in her right hand and not to advance it with her left foot PT-OP-H Neuro Start: 02/13/25 08:09 Freq: Status: Active Protocol: Document 02/27/25 14:30 MB (Rec: 02/27/25 15:17 MB Desktop) Coordination Evaluation Upper Extremity Tests Left Finger to Nose Test Moderate Impairment Pronation/Supination Test Minimal Impairment Right Finger to Nose Test Minimal Impairment Pronation/Supination Test Minimal Impairment Lower Extremity Tests Left Heel on Carreon Test Minimal Impairment Right Heel on Carreon Test Moderate Impairment Vital Signs Comments Vital Signs Comments Orthostatic assessment with BP and HR in RUE: supine: 151/67 , 76; standing 97/51, 77; standing 1' 97/53, 77. PT-OP-M Strength Start: 02/13/25 08:09 Freq: Status: Active Protocol: Document 02/27/25 14:30 MB (Rec: 02/27/25 15:17 MB Desktop) Shoulder Strength Shoulder Manual Muscle Testing Left Comments Pt has impaired left shoulder flexion and abduction in setting of left shoulder injury/repair, did not MMT left shoulder Right Flexion 4+ Good+ Abduction (C5) 4 Good Comments Pt has limited right shoulder flexion and abduction Elbow/Forearm Strength Elbow and Forearm Manual Muscle Testing Left Flexion (C6) 4+ Good+ Extension (C7) 5 Normal Right Flexion (C6) 4+ Good+ Extension (C7) 5 Normal Hip Strength Hip Manual Muscle Testing Left Flexion (L2) 4 Good Right Flexion (L2) 4+ Good+ Comments All MMT performed in sitting Knee Strength Knee Manual Muscle Testing Left Flexion (S2) 4+ Good+ Extension (L3) 5 Normal Right Flexion (S2) 4+ Good+ Extension (L3) 5 Normal Ankle/Foot Strength Ankle and Foot Manual Muscle Testing Left Dorsiflexion (L4) 4 Good Right Dorsiflexion (L4) 4 Good Toe Strength Toe Manual Muscle Testing Left Great Toe Extension 4+ Good+ Right Great Toe Extension 4+ Good+ PT-OP-Q Treatments Start: 02/13/25 08:09 Freq: Status: Active Protocol: Document 03/04/25 14:31 MB (Rec: 03/04/25 15:35 MB Desktop) Therapeutic Exercises Sitting Exercises BIG Sit to Stand Equipment Used BIG chair and black balance cushion in chair Reps/Minutes 10 reps Comments Pt has trouble with this and has to push up with right hand BIG Side Reach Sitting Exercise Name Extensive VCs Side bilateral Equipment Used BIG chair Reps/Minutes 10 reps to each side, one side at a time now Comments Cues for palm up, set position , not to scoot on butt in chair but to pick BIG floor ceiling Sitting Exercise Name Extensive VCs Side bilateral Equipment Used BIG chair Reps/Minutes 10 reps Comments Cues for all movements, cues to count loud, LUE limited movement Standing Exercises BIG Adaptive Side Rock and Reach Standing Exercise Name When moving to the right, left arm stays with body, does not move much Side bilateral Equipment Used BIG chair Reps/Minutes 10 reps each side Comments Instruction and increased cues today BIG Adaptive Rock and Reach Standing Exercise Name Forward rock and reach Side bilateral Equipment Used BIG chair Reps/Minutes 10 reps each side Comments Increased cues today, tends to rock from hips and not from arms BIG Adaptive Back Step Side bilateral Equipment Used BIG chair Reps/Minutes 10 reps each side Comments Cues for big hand, big front toe, step back BIG Adaptive Side Step Side bilateral Equipment Used BIG chair Reps/Minutes 10 reps each side Comments Cues for arm, stepping, look to the side and back to the center BIG Adaptive Forward Step Side bilateral Equipment Used BIG chair Reps/Minutes 10 reps each side Comments Increased cues today, cues for wide MONA, arm to side, too far forward charlene Gait Training Gait Activity BIG Walking Comments Pt arrives with cane and folder and is shuffling and not advancing with cane. PT takes cane and encourages pt to work on BIG stepping and arm swing and her jorge is much improved, gait practice up to 8' in clinic and hallways today PT-OP-T Assessment and Plan Start: 02/13/25 08:09 Freq: Status: Active Protocol: Document 03/04/25 14:31 MB (Rec: 03/04/25 15:35 MB Desktop) Physical Therapy Assessment Rehab Potential Rehabilitation Potential Fair Evaluation Complexity Number of Personal Factors/Comorbidities 1-2 Number of Body Systems Impaired 3 Clinical Presentation at Evaluation Unstable Impairments Impairments Activity Tolerance,Balance, Coordination,Functional Activities,Functional Mobility ,Gait,Pain,Posture,ROM, Strength,Transfers Goals 4 Impairment Lack of amplitude specific HEP Corporate Relations Director Goal (LTG) Pt will perform HEP with I including LSVT BIG exercises, BIG walking and functional tasks to improve amplitude and quality of movement. LTG Duration 5 weeks 3 Impairment 4 STS in 30 sec [facility] Goal (LTG) Pt will perform at least 9 STS in 30 sec to improve functional strength with transfers. LTG Duration 5 weeks 2 Impairment Decreased gait speed [facility] Goal (LTG) Pt will gait train at least 1, 176 feet with or without AD in 6 minutes to improve community ambulation. LTG Duration 5 weeks 1 Impairment Evidence of imbalance [facility] Goal (LTG) Pt will perform TUG in less than 10 sec without AD to decrease fall risk. LTG Duration 5 weeks Assessment Summary Assessment Performed 10 reps of all adapted LSVT BIG exercises today and pt has challenges with all exercises and especially with moving left arm away from the body and this is a barrier to arm swing and thoracic rotation. Con't to work on exercises, gait, balance and functional activities. Physical Therapy Plan Frequency and Duration Frequency of Treatment 16 treatments Duration of treatment (weeks) 5 Plan of Care Start Date 02/27/25 Plan of Care End Date 04/08/25 Therapeutic Interventions Therapeutic Interventions Balance Training,Canalithic Repositioning,Coordination Training,Gait Training,Home Exercise Program,Manual Therapy,Neuromuscular Re- education,Patient/Caregiver Education,Self-Care/Home Management,Soft Tissue Mobilization,Taping, Therapeutic Activities, Therapeutic Exercises Modalities Cold Pack/Ice Massage,Hot Packs Next Visit Focus/Plan Next Note Type Treatment Note Next Visit Plan Continue LSVT BIG Standing Adaptive exercises chair support for balance. Functional Tasks: walking, Gardening uneven surfaces picking off roberson/ carrying bucket (doesn't get on ground), cooking lifting/ carrying items in different surfaces in kitchen, Shopping bal getting items off shelf ( or home cupboard) high/low, posture eating meal, get up from low chair/sofa. Keep eye on orthostatics
--- NOTE | 2025-03-05 15:30 | PT.OTN ---
Current Diagnoses Parkinsonism, unspecified (03/05/25) Physical Therapy Treatment Note PT-OP-A Visit Information Start: 02/13/25 08:09 Freq: Status: Active Protocol: Document 03/05/25 14:21 SP (Rec: 03/05/25 15:44 SP [id number]) Out-Patient Physical Therapy Visit Information Visit Information Visit Type Treatment Note Visit Note No KX Visit Start Time 14:30 Visit Stop Time 15:30 Visit Number 60 Number of BOAT OPERATOR Visits 1 Evaluation Information Evaluation Date 02/27/25 Precautions Precautions Left frozen shoulder per pt report after fracture, severely orthostatic on assessment PT-OP-B Current Condition Start: 02/13/25 08:09 Freq: Status: Active Protocol: Document 02/27/25 14:30 MB (Rec: 02/27/25 15:17 MB Desktop) Current Condition History of Current Condition Onset Date August 2024 Current Complaints Shuffling of feet and imbalance History of Current Condition Pt reports a fall a year ago when she was picking wildflowers. She fell backwards on a rock pile and broke her left shoulder and injured her head and had to have kenyetta. She has what is presenting as a frozen shoulder and is seeing PT at outside clinic for this and will drop to Saturdays at this time. Current complaints include shuffling feet and balance trouble. Pt lives with her and she does not drive . Her NEGRITO brings her to PT. Pt has back pain d/t arthritis of the spine and left shoulder pain. She takes carbidopa levodopa and it is helpful for her walking and balance. Pt has a cane. Pt has had about 6 falls since last summer. It seems like she loses her balance easily. She is right handed. She is I with bathing and dressing since the left shoulder injury. She feels that her right side is affected more by her PD. Treatment Goals Patient/Caregiver Goals To improve walking and balance PT-OP-C Subjective Start: 02/13/25 08:09 Freq: Status: Active Protocol: Document 03/05/25 14:21 SP (Rec: 03/05/25 15:44 SP [id number]) OP-PT Subjective Patient Comments Patient Comments Pt reports little sore in L shld and low back but feeling just weak not pain, using muslce haven't been using. If feeling ok with exercises in am. PT-OP-G Mobility & Gait Start: 02/13/25 08:09 Freq: Status: Active Protocol: Document 02/27/25 14:30 MB (Rec: 02/27/25 15:17 MB Desktop) OP Gait Assessment Comments Gait Comments Shuffling gait and pt does not use SPC effectively: she leaves it hanging on the desk and then tends to carry it in her right hand and not to advance it with her left foot PT-OP-H Neuro Start: 02/13/25 08:09 Freq: Status: Active Protocol: Document 02/27/25 14:30 MB (Rec: 02/27/25 15:17 MB Desktop) Coordination Evaluation Upper Extremity Tests Left Finger to Nose Test Moderate Impairment Pronation/Supination Test Minimal Impairment Right Finger to Nose Test Minimal Impairment Pronation/Supination Test Minimal Impairment Lower Extremity Tests Left Heel on Carreon Test Minimal Impairment Right Heel on Carreon Test Moderate Impairment Vital Signs Comments Vital Signs Comments Orthostatic assessment with BP and HR in RUE: supine: 151/67 , 76; standing 97/51, 77; standing 1' 97/53, 77. PT-OP-M Strength Start: 02/13/25 08:09 Freq: Status: Active Protocol: Document 02/27/25 14:30 MB (Rec: 02/27/25 15:17 MB Desktop) Shoulder Strength Shoulder Manual Muscle Testing Left Comments Pt has impaired left shoulder flexion and abduction in setting of left shoulder injury/repair, did not MMT left shoulder Right Flexion 4+ Good+ Abduction (C5) 4 Good Comments Pt has limited right shoulder flexion and abduction Elbow/Forearm Strength Elbow and Forearm Manual Muscle Testing Left Flexion (C6) 4+ Good+ Extension (C7) 5 Normal Right Flexion (C6) 4+ Good+ Extension (C7) 5 Normal Hip Strength Hip Manual Muscle Testing Left Flexion (L2) 4 Good Right Flexion (L2) 4+ Good+ Comments All MMT performed in sitting Knee Strength Knee Manual Muscle Testing Left Flexion (S2) 4+ Good+ Extension (L3) 5 Normal Right Flexion (S2) 4+ Good+ Extension (L3) 5 Normal Ankle/Foot Strength Ankle and Foot Manual Muscle Testing Left Dorsiflexion (L4) 4 Good Right Dorsiflexion (L4) 4 Good Toe Strength Toe Manual Muscle Testing Left Great Toe Extension 4+ Good+ Right Great Toe Extension 4+ Good+ PT-OP-Q Treatments Start: 02/13/25 08:09 Freq: Status: Active Protocol: Document 03/05/25 14:21 SP (Rec: 03/05/25 15:44 SP [id number]) Therapeutic Exercises Sitting Exercises BIG Sit to Stand Equipment Used BIG chair and black balance cushion in chair Reps/Minutes 10 reps Comments push up with right hand come stand, B UEs forward descend BIG Side Reach Sitting Exercise Name Extensive VCs Side bilateral Equipment Used BIG chair Reps/Minutes 10 reps to each side, one side at a time now Comments Cues for palm up, set position , fruit or nut picker leg out/back, opp hand on chair BIG floor ceiling Sitting Exercise Name Extensive VCs Side bilateral Equipment Used BIG chair Reps/Minutes 10 reps Comments Cues for all movements, cues to count loud, palms up Standing Exercises BIG Adaptive Side Rock and Reach Standing Exercise Name When moving to the right, left arm stays with body, does not move much Side bilateral Equipment Used BIG chair behind contact needed Reps/Minutes 10 reps each side Comments Cued pizza hand, trunk turn, pivot back foot BIG Adaptive Rock and Reach Standing Exercise Name Forward rock and reach Side bilateral Equipment Used BIG chair nearby, PRN contact Reps/Minutes 10 reps each side Comments Modeled rock into front leg back heel up, rock back leg front toe up BIG Adaptive Back Step Side bilateral Equipment Used BIG chair nearby PRN Reps/Minutes 10 reps each side Comments Cues big hand front, big front toe, smaller step back, big arms back BIG Adaptive Side Step Side bilateral Equipment Used BIG chair nearby direction facing to PRN, not needed Reps/Minutes 10 reps each side Comments Cues for arms up, stepping, look to the side and back to the center BIG Adaptive Forward Step Side bilateral Equipment Used BIG chair nearby PRN but didn' t need Reps/Minutes 10 reps each side Comments Increased cues today, cues for wide MONA, arm to side, too far forward charlene Therapeutic Activity Therapeutic Activity Posture sitting (meal) Name BIG Chair and black cushion Reps/Minutes 5 reps Comments cued scoot full back in chair, pillow behind if needed, tall posture trunk lean forward to eat food over plate, cutting BIG motion (used markers as utensils). carrying items Name art museum docent item today Reps/Minutes 5 reps Comments black cushion/wood wheel item (near ball rack), use legs lift off table chest up posture, marching step pivot BIG steps walk carrying close to body to chair, wider MONA, hip hinge buttocks back place into BIG chair geothermal sheet metal worker assimilation- improved form pick/put down/march step turning, carrying close to body. Gait Training Gait Activity BIG Walking Distance/Duration several laps around clinic Comments Pt arrives with no cane today, model and cued BIG stride and BIG arm swing, calibrates 6/ 10 BIG movement, suggested BIGGER toward 8. BIGGER arms start to swing same leg, cued BIGGER STEP FORWARD. PT-OP-T Assessment and Plan Start: 02/13/25 08:09 Freq: Status: Active Protocol: Document 03/05/25 14:21 SP (Rec: 03/05/25 15:44 SP [id number]) Physical Therapy Assessment Goals 4 Impairment Lack of amplitude specific HEP [employer] Professor Goal (LTG) Pt will perform HEP with I including LSVT BIG exercises, BIG walking and functional tasks to improve amplitude and quality of movement. LTG Duration 5 weeks 3 Impairment 4 STS in 30 sec [employer] [place] [employer] Professor Goal (LTG) Pt will perform at least 9 STS in 30 sec to improve functional strength with transfers. LTG Duration 5 weeks 2 Impairment Decreased gait speed [facility] Goal (LTG) Pt will gait train at least 1, 176 feet with or without AD in 6 minutes to improve community ambulation. LTG Duration 5 weeks 1 Impairment Evidence of imbalance [employer] Professor Goal (LTG) Pt will perform TUG in less than 10 sec without AD to decrease fall risk. LTG Duration 5 weeks Assessment Summary Assessment Pt was able to decreased UE support during some standing maximal daily exercises today: forward, side, back step and forward rock reach. Continued Mod/max cues for BIG steps and arm swing BIG walking. Improved with cue chest lift tall posture during lift/ carrying functional task today . Initiated seated posture for eating, cues for set up and tall forward lean, BIG cutting motion. Carryover Activity BIG sit to stand various places at home. Physical Therapy Plan Frequency and Duration Frequency of Treatment 16 treatments Duration of treatment (weeks) 5 Plan of Care Start Date 02/27/25 Plan of Care End Date 04/08/25 Therapeutic Interventions Therapeutic Interventions Balance Training,Canalithic Repositioning,Coordination Training,Gait Training,Home Exercise Program,Manual Therapy,Neuromuscular Re- education,Patient/Caregiver Education,Self-Care/Home Management,Soft Tissue Mobilization,Taping, Therapeutic Activities, Therapeutic Exercises Modalities Cold Pack/Ice Massage,Hot Packs Next Visit Focus/Plan Next Note Type Treatment Note Next Visit Plan Assess some standing LSVT BIG Ex without chair vs Adaptive Progress Functional Tasks: walking, Gardening uneven surfaces picking off roberson/carrying bucket (doesn 't get on ground), cooking lifting/carrying items in different surfaces in kitchen, Shopping bal getting items off shelf (or home cupboard) high/low, posture eating meal, get up from low chair/sofa. Keep eye on orthostatics
--- NOTE | 2025-03-06 15:22 | PT.OTN ---
Current Diagnoses Parkinsonism, unspecified (03/06/25) Physical Therapy Treatment Note PT-OP-A Visit Information Start: 02/13/25 08:09 Freq: Status: Active Protocol: Document 03/06/25 14:16 MB (Rec: 03/06/25 15:21 MB Desktop) Out-Patient Physical Therapy Visit Information Visit Information Visit Type Treatment Note Visit Note No KX Visit Start Time 14:15 Visit Stop Time 15:15 Visit Number 5 Number of DETECTIVE PRECINCT Visits 0 Evaluation Information Evaluation Date 02/27/25 Precautions Precautions Left frozen shoulder per pt report after fracture, severely orthostatic on assessment PT-OP-B Current Condition Start: 02/13/25 08:09 Freq: Status: Active Protocol: Document 02/27/25 14:30 MB (Rec: 02/27/25 15:17 MB Desktop) Current Condition History of Current Condition Onset Date August 2024 Current Complaints Shuffling of feet and imbalance History of Current Condition Pt reports a fall a year ago when she was picking wildflowers. She fell backwards on a rock pile and broke her left shoulder and injured her head and had to have kenyetta. She has what is presenting as a frozen shoulder and is seeing PT at outside clinic for this and will drop to Saturdays at this time. Current complaints include shuffling feet and balance trouble. Pt lives with her and she does not drive . Her NEGRITO brings her to PT. Pt has back pain d/t arthritis of the spine and left shoulder pain. She takes carbidopa levodopa and it is helpful for her walking and balance. Pt has a cane. Pt has had about 6 falls since last summer. It seems like she loses her balance easily. She is right handed. She is I with bathing and dressing since the left shoulder injury. She feels that her right side is affected more by her PD. Treatment Goals Patient/Caregiver Goals To improve walking and balance PT-OP-C Subjective Start: 02/13/25 08:09 Freq: Status: Active Protocol: Document 03/06/25 14:16 MB (Rec: 03/06/25 15:21 MB Desktop) OP-PT Subjective Patient Comments Patient Comments Pt states that she is always doing well with the therapists at the clinic and it is harder when doing the exercises at home by herself. PT-OP-G Mobility & Gait Start: 02/13/25 08:09 Freq: Status: Active Protocol: Document 02/27/25 14:30 MB (Rec: 02/27/25 15:17 MB Desktop) OP Gait Assessment Comments Gait Comments Shuffling gait and pt does not use SPC effectively: she leaves it hanging on the desk and then tends to carry it in her right hand and not to advance it with her left foot PT-OP-H Neuro Start: 02/13/25 08:09 Freq: Status: Active Protocol: Document 02/27/25 14:30 MB (Rec: 02/27/25 15:17 MB Desktop) Coordination Evaluation Upper Extremity Tests Left Finger to Nose Test Moderate Impairment Pronation/Supination Test Minimal Impairment Right Finger to Nose Test Minimal Impairment Pronation/Supination Test Minimal Impairment Lower Extremity Tests Left Heel on Carreon Test Minimal Impairment Right Heel on Carreon Test Moderate Impairment Vital Signs Comments Vital Signs Comments Orthostatic assessment with BP and HR in RUE: supine: 151/67 , 76; standing 97/51, 77; standing 1' 97/53, 77. PT-OP-M Strength Start: 02/13/25 08:09 Freq: Status: Active Protocol: Document 02/27/25 14:30 MB (Rec: 02/27/25 15:17 MB Desktop) Shoulder Strength Shoulder Manual Muscle Testing Left Comments Pt has impaired left shoulder flexion and abduction in setting of left shoulder injury/repair, did not MMT left shoulder Right Flexion 4+ Good+ Abduction (C5) 4 Good Comments Pt has limited right shoulder flexion and abduction Elbow/Forearm Strength Elbow and Forearm Manual Muscle Testing Left Flexion (C6) 4+ Good+ Extension (C7) 5 Normal Right Flexion (C6) 4+ Good+ Extension (C7) 5 Normal Hip Strength Hip Manual Muscle Testing Left Flexion (L2) 4 Good Right Flexion (L2) 4+ Good+ Comments All MMT performed in sitting Knee Strength Knee Manual Muscle Testing Left Flexion (S2) 4+ Good+ Extension (L3) 5 Normal Right Flexion (S2) 4+ Good+ Extension (L3) 5 Normal Ankle/Foot Strength Ankle and Foot Manual Muscle Testing Left Dorsiflexion (L4) 4 Good Right Dorsiflexion (L4) 4 Good Toe Strength Toe Manual Muscle Testing Left Great Toe Extension 4+ Good+ Right Great Toe Extension 4+ Good+ PT-OP-Q Treatments Start: 02/13/25 08:09 Freq: Status: Active Protocol: Document 03/06/25 14:16 MB (Rec: 03/06/25 15:21 MB Desktop) Therapeutic Exercises Sitting Exercises BIG Sit to Stand Equipment Used BIG chair and black balance cushion in chair Reps/Minutes 10 reps Comments push up with right hand come stand, B UEs forward descend BIG Side Reach Sitting Exercise Name Extensive VCs, added flicks today Side bilateral Equipment Used BIG chair Reps/Minutes 10 reps to each side, one side at a time now Comments Cues to start big legs, move leg with arms, up flick BIG floor ceiling Sitting Exercise Name Added flicks today Side bilateral Equipment Used BIG chair Reps/Minutes 10 reps Comments Cues, started flicks Standing Exercises BIG Adaptive Side Rock and Reach Standing Exercise Name When moving to the right, left arm stays with body, does not move much Side bilateral Equipment Used BIG chair behind contact needed Reps/Minutes 10 reps each side Comments Cued pizza hand, trunk turn, pivot back foot BIG Adaptive Rock and Reach Standing Exercise Name Forward rock and reach Side bilateral Equipment Used BIG chair nearby, PRN contact Reps/Minutes 10 reps each side Comments Pt tends to deb down with head and chop wood motion rather than full arm sw BIG Adaptive Back Step Standing Exercise Name Very challenging for pt Side bilateral Equipment Used BIG chair nearby PRN Reps/Minutes 10 reps each side Comments Cues big hand front, big front toe, smaller step back, big arms back BIG Adaptive Side Step Side bilateral Equipment Used BIG chair Reps/Minutes 10 reps each side Comments Cues for arms up, stepping, look to the side and back to the center BIG Adaptive Forward Step Standing Exercise Name Tends to keep narrow MONA Side bilateral Equipment Used BIG chair Reps/Minutes 10 reps each side Comments Cues to step back and bring arm to the side Gait Training Gait Activity BIG Walking Comments Focus on BIG arm swing with forward stepping, bigger stride, metronome 90-91 BPM forward walking, pt is very apprehensive with backwards walking and requires CGA and cues to step bigger PT-OP-T Assessment and Plan Start: 02/13/25 08:09 Freq: Status: Active Protocol: Document 03/06/25 14:16 MB (Rec: 03/06/25 15:21 MB Desktop) Physical Therapy Assessment Rehab Potential Rehabilitation Potential Fair Evaluation Complexity Number of Personal Factors/Comorbidities 1-2 Number of Body Systems Impaired 3 Clinical Presentation at Evaluation Unstable Impairments Impairments Activity Tolerance,Balance, Coordination,Functional Activities,Functional Mobility ,Gait,Pain,Posture,ROM, Strength,Transfers Goals 4 Impairment Lack of amplitude specific HEP [place] Alarm Superintendent Goal (LTG) Pt will perform HEP with I including LSVT BIG exercises, BIG walking and functional tasks to improve amplitude and quality of movement. LTG Duration 5 weeks 3 Impairment 4 STS in 30 sec Senior Care Goal (LTG) Pt will perform at least 9 STS in 30 sec to improve functional strength with transfers. LTG Duration 5 weeks 2 Impairment Decreased gait speed Senior Care Goal (LTG) Pt will gait train at least 1, 176 feet with or without AD in 6 minutes to improve community ambulation. LTG Duration 5 weeks 1 Impairment Evidence of imbalance Senior Care Goal (LTG) Pt will perform TUG in less than 10 sec without AD to decrease fall risk. LTG Duration 5 weeks Assessment Summary Assessment Pt con't with somewhat block type movement of keeping each arm in alignment with torso and bobbing motion with movement at hips and head going up and down rather than thoracic mobility and arm swing. Exercises are challenging for pt and this is a con't presentation at this point into LSVT BIG. Physical Therapy Plan Frequency and Duration Frequency of Treatment 16 treatments Duration of treatment (weeks) 5 Plan of Care Start Date 02/27/25 Plan of Care End Date 04/08/25 Therapeutic Interventions Therapeutic Interventions Balance Training,Canalithic Repositioning,Coordination Training,Gait Training,Home Exercise Program,Manual Therapy,Neuromuscular Re- education,Patient/Caregiver Education,Self-Care/Home Management,Soft Tissue Mobilization,Taping, Therapeutic Activities, Therapeutic Exercises Modalities Cold Pack/Ice Massage,Hot Packs Next Visit Focus/Plan Next Note Type Treatment Note Next Visit Plan Continue LSVT BIG Standing Adaptive exercises chair support for balance. Functional Tasks: walking, Gardening uneven surfaces picking off roberson/ carrying bucket (doesn't get on ground), cooking lifting/ carrying items in different surfaces in kitchen, Shopping bal getting items off shelf ( or home cupboard) high/low, posture eating meal, get up from low chair/sofa. Keep eye on orthostatics
--- NOTE | 2025-03-07 15:30 | PT.OTN ---
Current Diagnoses Parkinsonism, unspecified (03/07/25) Physical Therapy Treatment Note PT-OP-A Visit Information Start: 02/13/25 08:09 Freq: Status: Active Protocol: Document 03/07/25 14:22 SP (Rec: 03/07/25 15:05 SP [id number]) Out-Patient Physical Therapy Visit Information Visit Information Visit Type Treatment Note Visit Note No KX Visit Start Time 14:30 Visit Stop Time 15:30 Visit Number 6 Number of MANAGER ANIMATION Visits 1 Evaluation Information Evaluation Date 02/27/25 Precautions Precautions Left frozen shoulder per pt report after fracture, severely orthostatic on assessment PT-OP-B Current Condition Start: 02/13/25 08:09 Freq: Status: Active Protocol: Document 02/27/25 14:30 MB (Rec: 02/27/25 15:17 MB Desktop) Current Condition History of Current Condition Onset Date August 2024 Current Complaints Shuffling of feet and imbalance History of Current Condition Pt reports a fall a year ago when she was picking wildflowers. She fell backwards on a rock pile and broke her left shoulder and injured her head and had to have kenyetta. She has what is presenting as a frozen shoulder and is seeing PT at outside clinic for this and will drop to Saturdays at this time. Current complaints include shuffling feet and balance trouble. Pt lives with her and she does not drive . Her NEGRITO brings her to PT. Pt has back pain d/t arthritis of the spine and left shoulder pain. She takes carbidopa levodopa and it is helpful for her walking and balance. Pt has a cane. Pt has had about 6 falls since last summer. It seems like she loses her balance easily. She is right handed. She is I with bathing and dressing since the left shoulder injury. She feels that her right side is affected more by her PD. Treatment Goals Patient/Caregiver Goals To improve walking and balance PT-OP-C Subjective Start: 02/13/25 08:09 Freq: Status: Active Protocol: Document 03/07/25 14:22 SP (Rec: 03/07/25 15:05 SP [id number]) OP-PT Subjective Patient Comments Patient Comments Pt states she is less sore and body getting used to the exercises. She doesn't get 10 reps in more like 7 at home and not as fluid as in PT watching us. Uses her HOs in front of herself to view to help her form best can. PT-OP-G Mobility & Gait Start: 02/13/25 08:09 Freq: Status: Active Protocol: Document 02/27/25 14:30 MB (Rec: 02/27/25 15:17 MB Desktop) OP Gait Assessment Comments Gait Comments Shuffling gait and pt does not use SPC effectively: she leaves it hanging on the desk and then tends to carry it in her right hand and not to advance it with her left foot PT-OP-H Neuro Start: 02/13/25 08:09 Freq: Status: Active Protocol: Document 02/27/25 14:30 MB (Rec: 02/27/25 15:17 MB Desktop) Coordination Evaluation Upper Extremity Tests Left Finger to Nose Test Moderate Impairment Pronation/Supination Test Minimal Impairment Right Finger to Nose Test Minimal Impairment Pronation/Supination Test Minimal Impairment Lower Extremity Tests Left Heel on Carreon Test Minimal Impairment Right Heel on Carreon Test Moderate Impairment Vital Signs Comments Vital Signs Comments Orthostatic assessment with BP and HR in RUE: supine: 151/67 , 76; standing 97/51, 77; standing 1' 97/53, 77. PT-OP-M Strength Start: 02/13/25 08:09 Freq: Status: Active Protocol: Document 02/27/25 14:30 MB (Rec: 02/27/25 15:17 MB Desktop) Shoulder Strength Shoulder Manual Muscle Testing Left Comments Pt has impaired left shoulder flexion and abduction in setting of left shoulder injury/repair, did not MMT left shoulder Right Flexion 4+ Good+ Abduction (C5) 4 Good Comments Pt has limited right shoulder flexion and abduction Elbow/Forearm Strength Elbow and Forearm Manual Muscle Testing Left Flexion (C6) 4+ Good+ Extension (C7) 5 Normal Right Flexion (C6) 4+ Good+ Extension (C7) 5 Normal Hip Strength Hip Manual Muscle Testing Left Flexion (L2) 4 Good Right Flexion (L2) 4+ Good+ Comments All MMT performed in sitting Knee Strength Knee Manual Muscle Testing Left Flexion (S2) 4+ Good+ Extension (L3) 5 Normal Right Flexion (S2) 4+ Good+ Extension (L3) 5 Normal Ankle/Foot Strength Ankle and Foot Manual Muscle Testing Left Dorsiflexion (L4) 4 Good Right Dorsiflexion (L4) 4 Good Toe Strength Toe Manual Muscle Testing Left Great Toe Extension 4+ Good+ Right Great Toe Extension 4+ Good+ PT-OP-Q Treatments Start: 02/13/25 08:09 Freq: Status: Active Protocol: Document 03/07/25 14:22 SP (Rec: 03/07/25 15:05 SP [id number]) Therapeutic Exercises Sitting Exercises BIG Sit to Stand Equipment Used BIG chair and black balance cushion in chair Reps/Minutes 10 reps Comments push up with right hand come stand, B UEs forward descend, fluid mv't BIG Side Reach Sitting Exercise Name Extensive VCs Side bilateral Equipment Used BIG chair Reps/Minutes 10 reps one side at a time Comments Cues move leg with arms, elbow straighter, palm up flicks BIG floor ceiling Side bilateral Equipment Used BIG chair Reps/Minutes 10 reps Comments Continued flicks, arms wider to side can Standing Exercises BIG Adaptive Side Rock and Reach Standing Exercise Name Pizza hand both L too not drop pizza Side bilateral Equipment Used BIG chair behind contact needed Reps/Minutes 10 reps each side Comments Cued pizza hand up, trunk turn , pivot back foot, hand on lap return front BIG Adaptive Rock and Reach Standing Exercise Name Forward rock and reach Side bilateral Equipment Used BIG chair nearby, PRN contact Reps/Minutes 10 reps each side Comments Cued headl/shld up, BIG full swing fwd& bwd (tends chop) BIG Adaptive Back Step Standing Exercise Name Very challenging for pt max cues Side bilateral Equipment Used BIG chair contact Reps/Minutes 10 reps each side Comments Cues big hand front, big front toe, smaller step back, big arms back BIG Adaptive Side Step Side bilateral Equipment Used BIG chair nearby (toward chair ) Reps/Minutes 10 reps each side Comments Cues for arms up, stepping, look to the side and back to the center BIG Adaptive Forward Step Standing Exercise Name Tends to keep narrow MONA Side bilateral Equipment Used BIG chair nearby Reps/Minutes 10 reps each side Comments Cues to step back and bring arm to the side Therapeutic Activity Therapeutic Activity FHT: transfers chair & car Name Assimulate Chair at Restaurant Reps/Minutes 2 Comments BIG walk approach chair, pull chair out, BIG sit, Scoot chair in, Scoot chair back, BIG Sit to Stand, BIG Walking Away Posture sitting (meal) Name BIG Chair and rolling table Reps/Minutes 5 reps Comments cued scoot full back in chair, pillow behind if needed behind, tall posture trunk lean forward to eat food over plate, cutting BIG arm motion (used pen as utensil). THINK BIG Gait Training Gait Activity BIG Walking Comments Focus on BIG arm swing with forward stepping, bigger stride, metronome 90-91 BPM forward walking, apprehensive but provide cuing feet passing each other near wall backwards walking and requires close SBA. PT-OP-T Assessment and Plan Start: 02/13/25 08:09 Freq: Status: Active Protocol: Document 03/07/25 14:22 SP (Rec: 03/07/25 15:05 SP [id number]) Physical Therapy Assessment Goals 4 Impairment Lack of amplitude specific HEP Assisted Goal (LTG) Pt will perform HEP with I including LSVT BIG exercises, BIG walking and functional tasks to improve amplitude and quality of movement. LTG Duration 5 weeks 3 Impairment 4 STS in 30 sec Assisted Goal (LTG) Pt will perform at least 9 STS in 30 sec to improve functional strength with transfers. LTG Duration 5 weeks 2 Impairment Decreased gait speed Assisted Goal (LTG) Pt will gait train at least 1, 176 feet with or without AD in 6 minutes to improve community ambulation. LTG Duration 5 weeks 1 Impairment Evidence of imbalance Sound System Installer Goal (LTG) Pt will perform TUG in less than 10 sec without AD to decrease fall risk. LTG Duration 5 weeks Assessment Summary Assessment Pt modeling finger abduction flicks while keeping arms up, model block vs fluid movement during STS and forward step for self calibration with little improvement. States first watches our leg then arms challenging doing both but trying. Improved backward stepping cues feet passing each other with BIGGER stride. Cues for arms swing BIGGER stepping forward, challenge consistent 90-91 metronome bpm . Pt reports felt better explaintion fluid BIG movement with BIG HO review and carry over to posture eating and going to sit/get out chair. Physical Therapy Plan Frequency and Duration Frequency of Treatment 16 treatments Duration of treatment (weeks) 5 Plan of Care Start Date 02/27/25 Plan of Care End Date 04/08/25 Therapeutic Interventions Therapeutic Interventions Balance Training,Canalithic Repositioning,Coordination Training,Gait Training,Home Exercise Program,Manual Therapy,Neuromuscular Re- education,Patient/Caregiver Education,Self-Care/Home Management,Soft Tissue Mobilization,Taping, Therapeutic Activities, Therapeutic Exercises Modalities Cold Pack/Ice Massage,Hot Packs Next Visit Focus/Plan Next Note Type Treatment Note Next Visit Plan Continue LSVT BIG Standing Adaptive exercises chair support for balance. Functional Tasks: walking, Gardening uneven surfaces picking off ro[place]on/ carrying bucket (doesn't get on ground), cooking lifting/ carrying items in different surfaces in kitchen, Shopping bal getting items off shelf ( or home cupboard) high/low, posture eating meal, get up from low chair/sofa. Keep eye on orthostatics
--- NOTE | 2025-03-12 15:36 | PT.OTN ---
Addendum entered and electronically signed by Donna Santos PTA 03/12/25 16:11: PN tomorrow or Mon tx. Original Note: Current Diagnoses Parkinsonism, unspecified (03/12/25) Physical Therapy Treatment Note PT-OP-A Visit Information Start: 02/13/25 08:09 Freq: Status: Active Protocol: Document 03/12/25 13:36 SP (Rec: 03/12/25 16:10 SP Desktop) Out-Patient Physical Therapy Visit Information Visit Information Visit Type Treatment Note Visit Note No KX SPTA Dalia attended/observed tx provided by DIMITRIOS Thompson with patient permission. Visit Start Time 14:30 Visit Stop Time 15:36 Visit Number 7 Number of SCREEN ROOM OPERATOR Visits 2 Evaluation Information Evaluation Date 02/27/25 Precautions Precautions Left frozen shoulder per pt report after fracture, severely orthostatic on assessment PT-OP-B Current Condition Start: 02/13/25 08:09 Freq: Status: Active Protocol: Document 02/27/25 14:30 MB (Rec: 02/27/25 15:17 MB Desktop) Current Condition History of Current Condition Onset Date August 2024 Current Complaints Shuffling of feet and imbalance History of Current Condition Pt reports a fall a year ago when she was picking wildflowers. She fell backwards on a rock pile and broke her left shoulder and injured her head and had to have kenyetta. She has what is presenting as a frozen shoulder and is seeing PT at outside clinic for this and will drop to Saturdays at this time. Current complaints include shuffling feet and balance trouble. Pt lives with her and she does not drive . Her NEGRITO brings her to PT. Pt has back pain d/t arthritis of the spine and left shoulder pain. She takes carbidopa levodopa and it is helpful for her walking and balance. Pt has a cane. Pt has had about 6 falls since last summer. It seems like she loses her balance easily. She is right handed. She is I with bathing and dressing since the left shoulder injury. She feels that her right side is affected more by her PD. Treatment Goals Patient/Caregiver Goals To improve walking and balance PT-OP-C Subjective Start: 02/13/25 08:09 Freq: Status: Active Protocol: Document 03/12/25 13:36 SP (Rec: 03/12/25 16:10 SP Desktop) OP-PT Subjective Patient Comments Patient Comments Pt reports did complete HEP 2x /day over the weekend. She arrives with stiff neck but not sure if slept wrong but not due to ex. PT-OP-G Mobility & Gait Start: 02/13/25 08:09 Freq: Status: Active Protocol: Document 02/27/25 14:30 MB (Rec: 02/27/25 15:17 MB Desktop) OP Gait Assessment Comments Gait Comments Shuffling gait and pt does not use SPC effectively: she leaves it hanging on the desk and then tends to carry it in her right hand and not to advance it with her left foot PT-OP-H Neuro Start: 02/13/25 08:09 Freq: Status: Active Protocol: Document 02/27/25 14:30 MB (Rec: 02/27/25 15:17 MB Desktop) Coordination Evaluation Upper Extremity Tests Left Finger to Nose Test Moderate Impairment Pronation/Supination Test Minimal Impairment Right Finger to Nose Test Minimal Impairment Pronation/Supination Test Minimal Impairment Lower Extremity Tests Left Heel on Carreon Test Minimal Impairment Right Heel on Carreon Test Moderate Impairment Vital Signs Comments Vital Signs Comments Orthostatic assessment with BP and HR in RUE: supine: 151/67 , 76; standing 97/51, 77; standing 1' 97/53, 77. PT-OP-M Strength Start: 02/13/25 08:09 Freq: Status: Active Protocol: Document 02/27/25 14:30 MB (Rec: 02/27/25 15:17 MB Desktop) Shoulder Strength Shoulder Manual Muscle Testing Left Comments Pt has impaired left shoulder flexion and abduction in setting of left shoulder injury/repair, did not MMT left shoulder Right Flexion 4+ Good+ Abduction (C5) 4 Good Comments Pt has limited right shoulder flexion and abduction Elbow/Forearm Strength Elbow and Forearm Manual Muscle Testing Left Flexion (C6) 4+ Good+ Extension (C7) 5 Normal Right Flexion (C6) 4+ Good+ Extension (C7) 5 Normal Hip Strength Hip Manual Muscle Testing Left Flexion (L2) 4 Good Right Flexion (L2) 4+ Good+ Comments All MMT performed in sitting Knee Strength Knee Manual Muscle Testing Left Flexion (S2) 4+ Good+ Extension (L3) 5 Normal Right Flexion (S2) 4+ Good+ Extension (L3) 5 Normal Ankle/Foot Strength Ankle and Foot Manual Muscle Testing Left Dorsiflexion (L4) 4 Good Right Dorsiflexion (L4) 4 Good Toe Strength Toe Manual Muscle Testing Left Great Toe Extension 4+ Good+ Right Great Toe Extension 4+ Good+ PT-OP-Q Treatments Start: 02/13/25 08:09 Freq: Status: Active Protocol: Document 03/12/25 13:36 SP (Rec: 03/12/25 16:10 SP Desktop) Therapeutic Exercises Sitting Exercises BIG Sit to Stand Equipment Used BIG chair and black balance cushion in chair Reps/Minutes 10 reps R hand push from chair dec to 50% time Comments arms front then out to side palms fwd, fluid mv't BIG Side Reach Sitting Exercise Name Extensive VCs Side bilateral Equipment Used BIG chair Reps/Minutes 10 reps one side at a time Comments Cues move leg with arms, elbow straighter, BIG flicks BIG floor ceiling Side bilateral Equipment Used BIG chair Reps/Minutes 10 reps Comments Continued BIG finger flicks, arms wider to side can Standing Exercises BIG Adaptive Side Rock and Reach Standing Exercise Name Pizza hand both L too not drop pizza Side bilateral Equipment Used BIG chair behind her PRN Reps/Minutes 10 reps each side Comments Cued pizza hand up, trunk turn , pivot back foot, hand on lap return front BIG Adaptive Rock and Reach Standing Exercise Name Forward rock and reach Side bilateral Equipment Used BIG chair nearby, PRN contact Reps/Minutes 10 reps each side Comments Cued head/shld up, BIG full swing fwd& bwd (tends chop) BIG Adaptive Back Step Standing Exercise Name still challenging initial motor plan- mod cues Side bilateral Equipment Used BIG chair contact Reps/Minutes 10 reps each side Comments Cues big hand front, big front toe, smaller step back, big arms back BIG Adaptive Side Step Side bilateral Equipment Used BIG chair nearby (toward chair ) Reps/Minutes 10 reps each side Comments Cued hand flicks, improves arms up, occ VC turn toward that side BIG Adaptive Forward Step Standing Exercise Name Tends to keep narrow MONA Side bilateral Equipment Used BIG chair nearby Reps/Minutes 10 reps each side Comments Cues BIG arms out to side, to step back side by side Therapeutic Activity Therapeutic Activity FHT: transfers chair & car Name Assimulate 1. Chair at Restaurant 2. Car Reps/Minutes 5 reps with chair, 3 reps at car Comments Chair: BIG walk approach chair , pull chair out, BIG sit, Scoot chair in, Scoot chair back, BIG Sit to Stand, BIG Walking Away Car: BIG walk approach car, open door, BIG sit, BIG legs in, close door, open door, BIG legs out, BIG STS, close door , BIG walk away Posture sitting (meal) Name BIG Chair with black cushion at plinth Reps/Minutes 5 reps Comments cued scoot full back in chair, pillow behind if needed for support, tall posture trunk lean forward to eat food over plate, cutting BIG arm motion (used 2 pens as utensil). THINK BIG Gait Training Gait Activity BIG Walking Comments Focus on BIG arm swing with forward stepping, bigger stride, metronome 90-91 BPM forward walking, apprehensive but provide cuing feet passing each other near wall backwards walking and requires close SBA. PT-OP-T Assessment and Plan Start: 02/13/25 08:09 Freq: Status: Active Protocol: Document 03/12/25 13:36 SP (Rec: 03/12/25 16:10 SP Desktop) Physical Therapy Assessment Goals 4 Impairment Lack of amplitude specific HEP Alf Goal (LTG) Pt will perform HEP with I including LSVT BIG exercises, BIG walking and functional tasks to improve amplitude and quality of movement. LTG Duration 5 weeks 3 Impairment 4 STS in 30 sec Courier Goal (LTG) Pt will perform at least 9 STS in 30 sec to improve functional strength with transfers. LTG Duration 5 weeks 2 Impairment Decreased gait speed Alf Goal (LTG) Pt will gait train at least 1, 176 feet with or without AD in 6 minutes to improve community ambulation. LTG Duration 5 weeks 1 Impairment Evidence of imbalance Courier Goal (LTG) Pt will perform TUG in less than 10 sec without AD to decrease fall risk. LTG Duration 5 weeks Assessment Summary Assessment Pt improves with BIGGER movement during ex especially standing with cues and modeling for BIGGER finger flicks. She was able to complete 50% STS without UE support today using a little momentum though. Continued mod cues for arm swing and increase stride during BIG walking. Incorporated heirarchy tasks transfer with chair and carryover to car end of tx with improved performance. Physical Therapy Plan Frequency and Duration Frequency of Treatment 16 treatments Duration of treatment (weeks) 5 Plan of Care Start Date 02/27/25 Plan of Care End Date 04/08/25 Therapeutic Interventions Therapeutic Interventions Balance Training,Canalithic Repositioning,Coordination Training,Gait Training,Home Exercise Program,Manual Therapy,Neuromuscular Re- education,Patient/Caregiver Education,Self-Care/Home Management,Soft Tissue Mobilization,Taping, Therapeutic Activities, Therapeutic Exercises Modalities Cold Pack/Ice Massage,Hot Packs Next Visit Focus/Plan Next Note Type Treatment Note Next Visit Plan Continue LSVT BIG Standing progressing standard standing exercises chair support for balance. Functional Tasks: walking, Gardening uneven surfaces picking off roberson/carrying bucket (doesn 't get on ground), cooking lifting/carrying items in different surfaces in kitchen, Shopping bal getting items off shelf (or home cupboard) high/low, posture eating meal, get up from low chair/sofa. Keep eye on orthostatics
--- NOTE | 2025-03-13 15:33 | PT.OTN ---
Current Diagnoses Parkinsonism, unspecified (03/13/25) Physical Therapy Treatment Note PT-OP-A Visit Information Start: 02/13/25 08:09 Freq: Status: Active Protocol: Document 03/13/25 14:34 SP (Rec: 03/13/25 15:43 SP [id number]) Out-Patient Physical Therapy Visit Information Visit Information Visit Type Treatment Note Visit Note No KX Visit Start Time 14:33 Visit Stop Time 15:33 Visit Number 8 Number of EMERGENCY DEPARTMENT DIRECTOR Visits 3 Evaluation Information Evaluation Date 02/27/25 Precautions Precautions Left frozen shoulder per pt report after fracture, severely orthostatic on assessment PT-OP-B Current Condition Start: 02/13/25 08:09 Freq: Status: Active Protocol: Document 02/27/25 14:30 MB (Rec: 02/27/25 15:17 MB Desktop) Current Condition History of Current Condition Onset Date August 2024 Current Complaints Shuffling of feet and imbalance History of Current Condition Pt reports a fall a year ago when she was picking wildflowers. She fell backwards on a rock pile and broke her left shoulder and injured her head and had to have kenyetta. She has what is presenting as a frozen shoulder and is seeing PT at outside clinic for this and will drop to Saturdays at this time. Current complaints include shuffling feet and balance trouble. Pt lives with her and she does not drive . Her NEGRITO brings her to PT. Pt has back pain d/t arthritis of the spine and left shoulder pain. She takes carbidopa levodopa and it is helpful for her walking and balance. Pt has a cane. Pt has had about 6 falls since last summer. It seems like she loses her balance easily. She is right handed. She is I with bathing and dressing since the left shoulder injury. She feels that her right side is affected more by her PD. Treatment Goals Patient/Caregiver Goals To improve walking and balance PT-OP-C Subjective Start: 02/13/25 08:09 Freq: Status: Active Protocol: Document 03/13/25 14:34 SP (Rec: 03/13/25 15:43 SP [id number]) OP-PT Subjective Patient Comments Patient Comments Pt PT-OP-G Mobility & Gait Start: 02/13/25 08:09 Freq: Status: Active Protocol: Document 02/27/25 14:30 MB (Rec: 02/27/25 15:17 MB Desktop) OP Gait Assessment Comments Gait Comments Shuffling gait and pt does not use SPC effectively: she leaves it hanging on the desk and then tends to carry it in her right hand and not to advance it with her left foot PT-OP-H Neuro Start: 02/13/25 08:09 Freq: Status: Active Protocol: Document 02/27/25 14:30 MB (Rec: 02/27/25 15:17 MB Desktop) Coordination Evaluation Upper Extremity Tests Left Finger to Nose Test Moderate Impairment Pronation/Supination Test Minimal Impairment Right Finger to Nose Test Minimal Impairment Pronation/Supination Test Minimal Impairment Lower Extremity Tests Left Heel on Carreon Test Minimal Impairment Right Heel on Carreon Test Moderate Impairment Vital Signs Comments Vital Signs Comments Orthostatic assessment with BP and HR in RUE: supine: 151/67 , 76; standing 97/51, 77; standing 1' 97/53, 77. PT-OP-M Strength Start: 02/13/25 08:09 Freq: Status: Active Protocol: Document 02/27/25 14:30 MB (Rec: 02/27/25 15:17 MB Desktop) Shoulder Strength Shoulder Manual Muscle Testing Left Comments Pt has impaired left shoulder flexion and abduction in setting of left shoulder injury/repair, did not MMT left shoulder Right Flexion 4+ Good+ Abduction (C5) 4 Good Comments Pt has limited right shoulder flexion and abduction Elbow/Forearm Strength Elbow and Forearm Manual Muscle Testing Left Flexion (C6) 4+ Good+ Extension (C7) 5 Normal Right Flexion (C6) 4+ Good+ Extension (C7) 5 Normal Hip Strength Hip Manual Muscle Testing Left Flexion (L2) 4 Good Right Flexion (L2) 4+ Good+ Comments All MMT performed in sitting Knee Strength Knee Manual Muscle Testing Left Flexion (S2) 4+ Good+ Extension (L3) 5 Normal Right Flexion (S2) 4+ Good+ Extension (L3) 5 Normal Ankle/Foot Strength Ankle and Foot Manual Muscle Testing Left Dorsiflexion (L4) 4 Good Right Dorsiflexion (L4) 4 Good Toe Strength Toe Manual Muscle Testing Left Great Toe Extension 4+ Good+ Right Great Toe Extension 4+ Good+ PT-OP-Q Treatments Start: 02/13/25 08:09 Freq: Status: Active Protocol: Document 03/13/25 14:34 SP (Rec: 03/13/25 15:43 SP [id number]) Therapeutic Exercises Sitting Exercises BIG Sit to Stand Equipment Used BIG chair and black balance cushion in chair Reps/Minutes 10 reps: no reps no UE then needed R hand push from chair seat Comments arms front then out to side open chest, fluid mv't BIG Side Reach Sitting Exercise Name Minimal VCs Side bilateral Equipment Used BIG chair Reps/Minutes 20 reps alternating Comments Cues move leg with arms, elbow straighter, BIGGER finger L>R flicks BIG floor ceiling Side bilateral Equipment Used BIG chair Reps/Minutes 10 reps Comments Continued BIG finger flicks, arms wider to side can Standing Exercises BIG Adaptive Side Rock and Reach Standing Exercise Name Pizza hand both L too not drop pizza Side bilateral Equipment Used BIG chair behind her PRN, front mirror Reps/Minutes 20 reps alternating sides Comments Cued pizza hand up, trunk turn , pivot back foot, hand on lap return front BIG Adaptive Rock and Reach Standing Exercise Name Forward rock and reach Side bilateral Equipment Used BIG chair nearby, PRN contact front of mirror Reps/Minutes 10 reps each side Comments Cued head/shld up, BIG full swing fwd& bwd (tends chop) BIG Adaptive Back Step Standing Exercise Name Very Challenging today to motor plan- max cues Side bilateral Equipment Used BIG chair contact- still needed today for stability, front mirror Reps/Minutes 10 reps each side Comments Cues big hand front, big front toe, SMALLER step back, BIG arms back BIG Adaptive Side Step Side bilateral Equipment Used BIG chair nearby (toward chair ), facing chair front of mirror Reps/Minutes 20 reps alternating Comments Cued hand flicks, occ VC turn toward that side BIG Adaptive Forward Step Standing Exercise Name Tends to keep narrow MONA Side bilateral Equipment Used BIG chair nearby on side, front mirror Reps/Minutes 20 reps alternating Comments Cues BIG arms out to side, to step back (side by side) Therapeutic Activity Therapeutic Activity FHT: transfers chair & car Name Day Task: transfer in/ out car Reps/Minutes 3 reps at car Comments Car: BIG walk approach car, open door, BIG sit, BIG legs in, close door, open door, BIG legs out, BIG STS, close door , BIG walk away Gait Training Gait Activity BIG Walking Comments Focus on BIG arm swing with forward stepping, bigger stride, metronome 91-93 BPM forward and backward walking outside cement side walk, up/ down stairs R RH asc 5 steps x3 sets R HR & SPC 2 step no HR, up/down curb x5 reps no AD , forward up/down uneven grass 5 reps, backward up grass incline x5 reps, uneven landscape out back forward x1 lap with SPC support. PT-OP-T Assessment and Plan Start: 02/13/25 08:09 Freq: Status: Active Protocol: Document 03/13/25 14:34 SP (Rec: 03/13/25 15:43 SP [id number]) Physical Therapy Assessment Goals 4 Impairment Lack of amplitude specific HEP [facility] Goal (LTG) Pt will perform HEP with I including LSVT BIG exercises, BIG walking and functional tasks to improve amplitude and quality of movement. LTG Duration 5 weeks 3 Impairment 4 STS in 30 sec Chemical Equipment Sales Engineer Goal (LTG) Pt will perform at least 9 STS in 30 sec to improve functional strength with transfers. LTG Duration 5 weeks 2 Impairment Decreased gait speed Chemical Equipment Sales Engineer Goal (LTG) Pt will gait train at least 1, 176 feet with or without AD in 6 minutes to improve community ambulation. LTG Duration 5 weeks 1 Impairment Evidence of imbalance Chemical Equipment Sales Engineer Goal (LTG) Pt will perform TUG in less than 10 sec without AD to decrease fall risk. LTG Duration 5 weeks Assessment Summary Assessment Pt continues cuing for head up , watch and follow therapist with BIGGER finger flicks during ther ex and keep arms BIG out to side, L arm tends to tire end reps. Was able to progress alternating sides with some exercises today and use mirror for self feedback but cues to utilize mirror. Pt improved BIG walking fwd/bwd outside side walk metronome 91 -93 bpm and incline/declined grass, stair mgt and uneven landscape with SPC support. Next navigate landscape assimilate gardening disbudding bushes wants to get back to at home. Physical Therapy Plan Frequency and Duration Frequency of Treatment 16 treatments Duration of treatment (weeks) 5 Plan of Care Start Date 02/27/25 Plan of Care End Date 04/08/25 Therapeutic Interventions Therapeutic Interventions Balance Training,Canalithic Repositioning,Coordination Training,Gait Training,Home Exercise Program,Manual Therapy,Neuromuscular Re- education,Patient/Caregiver Education,Self-Care/Home Management,Soft Tissue Mobilization,Taping, Therapeutic Activities, Therapeutic Exercises Modalities Cold Pack/Ice Massage,Hot Packs Next Visit Focus/Plan Next Note Type Treatment Note Next Visit Plan Continue LSVT BIG progressing Standard Standing exercises with chair support as needed back step mainly for balance. Functional Tasks: walking, Gardening uneven surfaces picking off roberson/ carrying bucket (doesn't get on ground), cooking lifting/ carrying items in different surfaces in kitchen, Shopping bal getting items off shelf ( or home cupboard) high/low, posture eating meal, get up from low chair/sofa. Keep eye on orthostatics
--- NOTE | 2025-03-14 15:25 | PT.OTN ---
Current Diagnoses Parkinsonism, unspecified (03/14/25) Physical Therapy Treatment Note PT-OP-A Visit Information Start: 02/13/25 08:09 Freq: Status: Active Protocol: Document 03/14/25 14:32 SP (Rec: 03/14/25 14:39 SP [id number]) Out-Patient Physical Therapy Visit Information Visit Information Visit Type Treatment Note Visit Note No KX Visit Start Time 14:25 Visit Stop Time 15:25 Visit Number 9 Number of DEAN OF GRADUATE STUDIES Visits 4 Evaluation Information Evaluation Date 02/27/25 Precautions Precautions Left frozen shoulder per pt report after fracture, severely orthostatic on assessment PT-OP-B Current Condition Start: 02/13/25 08:09 Freq: Status: Active Protocol: Document 02/27/25 14:30 MB (Rec: 02/27/25 15:17 MB Desktop) Current Condition History of Current Condition Onset Date August 2024 Current Complaints Shuffling of feet and imbalance History of Current Condition Pt reports a fall a year ago when she was picking wildflowers. She fell backwards on a rock pile and broke her left shoulder and injured her head and had to have kenyetta. She has what is presenting as a frozen shoulder and is seeing PT at outside clinic for this and will drop to Saturdays at this time. Current complaints include shuffling feet and balance trouble. Pt lives with her and she does not drive . Her NEGRITO brings her to PT. Pt has back pain d/t arthritis of the spine and left shoulder pain. She takes carbidopa levodopa and it is helpful for her walking and balance. Pt has a cane. Pt has had about 6 falls since last summer. It seems like she loses her balance easily. She is right handed. She is I with bathing and dressing since the left shoulder injury. She feels that her right side is affected more by her PD. Treatment Goals Patient/Caregiver Goals To improve walking and balance PT-OP-C Subjective Start: 02/13/25 08:09 Freq: Status: Active Protocol: Document 03/14/25 14:32 SP (Rec: 03/14/25 14:39 SP [id number]) OP-PT Subjective Patient Comments Patient Comments Pt reports told her she looked pretty good outside on the grass. She reports tries to do big movements can, but is easier at PT because of our cuing. DEAN OF GRADUATE STUDIES discussed will give an index card with cuing if will help along with pictures given of exercises form. PT-OP-G Mobility & Gait Start: 02/13/25 08:09 Freq: Status: Active Protocol: Document 02/27/25 14:30 MB (Rec: 02/27/25 15:17 MB Desktop) OP Gait Assessment Comments Gait Comments Shuffling gait and pt does not use SPC effectively: she leaves it hanging on the desk and then tends to carry it in her right hand and not to advance it with her left foot PT-OP-H Neuro Start: 02/13/25 08:09 Freq: Status: Active Protocol: Document 02/27/25 14:30 MB (Rec: 02/27/25 15:17 MB Desktop) Coordination Evaluation Upper Extremity Tests Left Finger to Nose Test Moderate Impairment Pronation/Supination Test Minimal Impairment Right Finger to Nose Test Minimal Impairment Pronation/Supination Test Minimal Impairment Lower Extremity Tests Left Heel on Carreon Test Minimal Impairment Right Heel on Carreon Test Moderate Impairment Vital Signs Comments Vital Signs Comments Orthostatic assessment with BP and HR in RUE: supine: 151/67 , 76; standing 97/51, 77; standing 1' 97/53, 77. PT-OP-M Strength Start: 02/13/25 08:09 Freq: Status: Active Protocol: Document 02/27/25 14:30 MB (Rec: 02/27/25 15:17 MB Desktop) Shoulder Strength Shoulder Manual Muscle Testing Left Comments Pt has impaired left shoulder flexion and abduction in setting of left shoulder injury/repair, did not MMT left shoulder Right Flexion 4+ Good+ Abduction (C5) 4 Good Comments Pt has limited right shoulder flexion and abduction Elbow/Forearm Strength Elbow and Forearm Manual Muscle Testing Left Flexion (C6) 4+ Good+ Extension (C7) 5 Normal Right Flexion (C6) 4+ Good+ Extension (C7) 5 Normal Hip Strength Hip Manual Muscle Testing Left Flexion (L2) 4 Good Right Flexion (L2) 4+ Good+ Comments All MMT performed in sitting Knee Strength Knee Manual Muscle Testing Left Flexion (S2) 4+ Good+ Extension (L3) 5 Normal Right Flexion (S2) 4+ Good+ Extension (L3) 5 Normal Ankle/Foot Strength Ankle and Foot Manual Muscle Testing Left Dorsiflexion (L4) 4 Good Right Dorsiflexion (L4) 4 Good Toe Strength Toe Manual Muscle Testing Left Great Toe Extension 4+ Good+ Right Great Toe Extension 4+ Good+ PT-OP-Q Treatments Start: 02/13/25 08:09 Freq: Status: Active Protocol: Document 03/14/25 14:32 SP (Rec: 03/14/25 14:39 SP [id number]) Therapeutic Exercises Sitting Exercises BIG Sit to Stand Equipment Used BIG chair and black balance cushion in chair Reps/Minutes 10 reps: no reps no UE then needed R hand push from chair seat Comments BIG arms side open stand, fluid sit BIG Side Reach Sitting Exercise Name Occasional VCs Side bilateral Equipment Used BIG chair Reps/Minutes 20 reps alternating Comments Cues move leg with arms, cued leg back, improved BIG finger L>R flicks BIG floor ceiling Side bilateral Equipment Used BIG chair Reps/Minutes 10 reps Comments Improved BIG finger flicks R>L , arms wider to side as can- watches DEAN OF GRADUATE STUDIES 30 sec STS Comments 4 reps in 30 sec with heavy leg support against black high low table Standing Exercises BIG Adaptive Side Rock and Reach Standing Exercise Name Pizza hand both L too not drop pizza- Max cues each position Side bilateral Equipment Used BIG chair behind her PRN, back to mirror<>turn toward mirror Reps/Minutes 20 reps alternating sides Comments Cued pizza hand up, trunk turn , pivot back foot, hand on lap return front BIG Adaptive Rock and Reach Standing Exercise Name Forward rock and reach Side bilateral Equipment Used BIG chair nearby, PRN contact front of mirror Reps/Minutes 10 reps each side Comments Cued head/shld up, BIG full swing fwd& bwd, upper trunk turn (tends chop) BIG Adaptive Back Step Standing Exercise Name Still Very Challenging today to motor plan- max cues Side bilateral Equipment Used BIG chair contact- still needed today for stability, front mirror look up Reps/Minutes 10 reps each side Comments Cues big hand front, big front toe, SMALLER step back, BIG arms back BIG Adaptive Side Step Side bilateral Equipment Used BIG chair nearby (toward chair ), facing chair front of mirror Reps/Minutes 20 reps alternating Comments Cued head up, turn toward that side, hand flicks BIG Adaptive Forward Step Standing Exercise Name Tends to keep narrow MONA Side bilateral Equipment Used BIG chair nearby on side, front mirror Reps/Minutes 20 reps alternating Comments Cues BIG arms and finger flicks improved crisp, step back (side by side) Therapeutic Activity Therapeutic Activity FHT: transfers chair & car Name Day Task: transfer in/ out car Reps/Minutes 3 reps at car Comments Car: BIG walk approach car, open door, BIG sit, BIG legs in, close door, open door, BIG legs out, BIG STS, close door , BIG walk away Gait Training Gait Activity BIG Walking Comments Focus on BIG arm swing with forward stepping, bigger stride, metronome 91-93 BPM forward and backward walking outside cement side walk, stairs SPC in RUE asc 5 steps x3 sets receiprocal stepping, SPC in RUE descending 2 steps step to patterning, forward up/down uneven grass 5 reps approx 91-93 metronome bpm, backward up grass incline x3 approx 91bpm. PT-OP-T Assessment and Plan Start: 02/13/25 08:09 Freq: Status: Active Protocol: Document 03/14/25 14:32 SP (Rec: 03/14/25 14:39 SP [id number]) Physical Therapy Assessment Goals 4 Impairment Lack of amplitude specific HEP Fpc Goal (LTG) Pt will perform HEP with I including LSVT BIG exercises, BIG walking and functional tasks to improve amplitude and quality of movement. LTG Duration 5 weeks 3 Impairment 4 STS in 30 sec Fpc Goal (LTG) Pt will perform at least 9 STS in 30 sec to improve functional strength with transfers. LTG Duration 5 weeks 2 Impairment Decreased gait speed Fpc Goal (LTG) Pt will gait train at least 1, 176 feet with or without AD in 6 minutes to improve community ambulation. LTG Duration 5 weeks 1 Impairment Evidence of imbalance Manager Of Training Goal (LTG) Pt will perform TUG in less than 10 sec without AD to decrease fall risk. LTG Duration 5 weeks Assessment Summary Assessment Pt improved arms wider and finger flicks R>L and counting seated exercises today. Cues for use mirror look at self for feedback corrections standing today. Back stepping continues to be challenging, Max cues for sequencing and use chair contact stability. Improved fwd/bwd stepping on uneven grass today with metronome 91bpm, stair mgt with just SPC receiprocal stepping ascend, step to descending. Didnt' get to curb today. NExt work on pivot turns and continue progress functional tasks stand uneven surface assimulate prune bushes wants to get back to at home confidence. Physical Therapy Plan Frequency and Duration Frequency of Treatment 16 treatments Duration of treatment (weeks) 5 Plan of Care Start Date 02/27/25 Plan of Care End Date 04/08/25 Therapeutic Interventions Therapeutic Interventions Balance Training,Canalithic Repositioning,Coordination Training,Gait Training,Home Exercise Program,Manual Therapy,Neuromuscular Re- education,Patient/Caregiver Education,Self-Care/Home Management,Soft Tissue Mobilization,Taping, Therapeutic Activities, Therapeutic Exercises Modalities Cold Pack/Ice Massage,Hot Packs Next Visit Focus/Plan Next Note Type Treatment Note Next Visit Plan Continue LSVT BIG progressing Standard Standing exercises with chair support as needed back step mainly for balance. Functional Tasks: walking trial uneven inside surface mat, hurdles, Gardening uneven surfaces out back picking off roberson/carrying bucket as wants to return to home ( doesn't get on ground), cooking lifting/carrying items in different surfaces in kitchen, Shopping bal getting items off shelf (or home cupboard) high/low, recheck posture eating meal, get up from low chair/sofa trial 24 box step. Keep eye on orthostatics
--- NOTE | 2025-03-18 15:29 | PT.OTN ---
Current Diagnoses Parkinsonism, unspecified (03/18/25) Physical Therapy Treatment Note PT-OP-A Visit Information Start: 02/13/25 08:09 Freq: Status: Active Protocol: Document 03/18/25 14:31 MB (Rec: 03/18/25 15:28 MB Desktop) Out-Patient Physical Therapy Visit Information Visit Information Visit Type Progress Note Visit Note No KX Visit Start Time 14:31 Visit Stop Time 15:30 Visit Number 10 Number of LENS ASSISTANT Visits 0 Evaluation Information Evaluation Date 02/27/25 Precautions Precautions Left frozen shoulder per pt report after fracture, severely orthostatic on assessment PT-OP-B Current Condition Start: 02/13/25 08:09 Freq: Status: Active Protocol: Document 02/27/25 14:30 MB (Rec: 02/27/25 15:17 MB Desktop) Current Condition History of Current Condition Onset Date August 2024 Current Complaints Shuffling of feet and imbalance History of Current Condition Pt reports a fall a year ago when she was picking wildflowers. She fell backwards on a rock pile and broke her left shoulder and injured her head and had to have kenyetta. She has what is presenting as a frozen shoulder and is seeing PT at outside clinic for this and will drop to Saturdays at this time. Current complaints include shuffling feet and balance trouble. Pt lives with her and she does not drive . Her NEGRITO brings her to PT. Pt has back pain d/t arthritis of the spine and left shoulder pain. She takes carbidopa levodopa and it is helpful for her walking and balance. Pt has a cane. Pt has had about 6 falls since last summer. It seems like she loses her balance easily. She is right handed. She is I with bathing and dressing since the left shoulder injury. She feels that her right side is affected more by her PD. Treatment Goals Patient/Caregiver Goals To improve walking and balance PT-OP-C Subjective Start: 02/13/25 08:09 Freq: Status: Active Protocol: Document 03/18/25 14:31 MB (Rec: 03/18/25 15:28 MB Desktop) OP-PT Subjective Patient Comments Patient Comments Pt states that she does better when she does the exercises with the therapists. She is surprised about not having to use the cane and only uses it when she goes out into the yard. Her left shoulder is sore. PT-OP-G Mobility & Gait Start: 02/13/25 08:09 Freq: Status: Active Protocol: Document 02/27/25 14:30 MB (Rec: 02/27/25 15:17 MB Desktop) OP Gait Assessment Comments Gait Comments Shuffling gait and pt does not use SPC effectively: she leaves it hanging on the desk and then tends to carry it in her right hand and not to advance it with her left foot PT-OP-H Neuro Start: 02/13/25 08:09 Freq: Status: Active Protocol: Document 02/27/25 14:30 MB (Rec: 02/27/25 15:17 MB Desktop) Coordination Evaluation Upper Extremity Tests Left Finger to Nose Test Moderate Impairment Pronation/Supination Test Minimal Impairment Right Finger to Nose Test Minimal Impairment Pronation/Supination Test Minimal Impairment Lower Extremity Tests Left Heel on Carreon Test Minimal Impairment Right Heel on Carreon Test Moderate Impairment Vital Signs Comments Vital Signs Comments Orthostatic assessment with BP and HR in RUE: supine: 151/67 , 76; standing 97/51, 77; standing 1' 97/53, 77. PT-OP-M Strength Start: 02/13/25 08:09 Freq: Status: Active Protocol: Document 02/27/25 14:30 MB (Rec: 02/27/25 15:17 MB Desktop) Shoulder Strength Shoulder Manual Muscle Testing Left Comments Pt has impaired left shoulder flexion and abduction in setting of left shoulder injury/repair, did not MMT left shoulder Right Flexion 4+ Good+ Abduction (C5) 4 Good Comments Pt has limited right shoulder flexion and abduction Elbow/Forearm Strength Elbow and Forearm Manual Muscle Testing Left Flexion (C6) 4+ Good+ Extension (C7) 5 Normal Right Flexion (C6) 4+ Good+ Extension (C7) 5 Normal Hip Strength Hip Manual Muscle Testing Left Flexion (L2) 4 Good Right Flexion (L2) 4+ Good+ Comments All MMT performed in sitting Knee Strength Knee Manual Muscle Testing Left Flexion (S2) 4+ Good+ Extension (L3) 5 Normal Right Flexion (S2) 4+ Good+ Extension (L3) 5 Normal Ankle/Foot Strength Ankle and Foot Manual Muscle Testing Left Dorsiflexion (L4) 4 Good Right Dorsiflexion (L4) 4 Good Toe Strength Toe Manual Muscle Testing Left Great Toe Extension 4+ Good+ Right Great Toe Extension 4+ Good+ PT-OP-Q Treatments Start: 02/13/25 08:09 Freq: Status: Active Protocol: Document 03/18/25 14:31 MB (Rec: 03/18/25 15:28 MB Desktop) Therapeutic Exercises Sitting Exercises BIG Sit to Stand Comments Deferred today d/t 30 sec STS test BIG Side Reach Sitting Exercise Name Very poor performance and requiring constant cues for form, start, legs, ar Side bilateral Equipment Used BIG chair Reps/Minutes 20 alternating reps Comments Constant cues BIG floor ceiling Sitting Exercise Name Heavy visual reliance on PT Side bilateral Equipment Used BIG chair Reps/Minutes 10 reps Comments Pt tends to flick arms forward and not back, decreased reach forward 30 sec STS Comments 8 reps in 30 sec in BIG chair with cushion under hips today Standing Exercises BIG Adaptive Side Rock and Reach Side bilateral Equipment Used BIG chair behind Reps/Minutes 10 reps each side Comments Cues for form BIG Adaptive Rock and Reach Standing Exercise Name Forward rock and reach Side bilateral Equipment Used BIG chair used Reps/Minutes 10 reps each side Comments Lower arm swing BIG Adaptive Back Step Side bilateral Equipment Used BIG chair used Reps/Minutes 10 reps each side Comments Cues to start feet BIG and square and step back and big front toe BIG Adaptive Side Step Side bilateral Equipment Used BIG chair Reps/Minutes 10 reps Comments Cues to turn her head to look where she is going BIG Adaptive Forward Step Standing Exercise Name Tends to keep narrow MONA Side bilateral Equipment Used BIG chair Reps/Minutes 10 reps each side Comments Cues to bring arm back, start BIG feet and bring good back Gait Training Gait Activity 6MWT Comments Pt gait trains 1138 feet in 6 minutes with stooped posture and decreased foot clearance and arm swing. Feet shuffle on the carpet and her steps are marching in appearance. She requires superv for safety BIG Walking Comments Cues to increase arm swing and foot clearance during all gait trials today and she requires superv for safety Neuro Re-Education Treatment Balance Activities TUG Comments 12 sec 12 sec 11 sec Self-Care/Home Management Treatment Education Patient Education Fall Risk,Home Exercise Program,Safety Caregiver Education Ed pt that LSVT HEP performance goal is for once a day at home on therapy days and twice a day on non-therapy days. Orthostatic assessment with BP and HR in RUE: supine 159/68, 76; standing 126/60, 78; standing 1' 141/67, 77. PT-OP-T Assessment and Plan Start: 02/13/25 08:09 Freq: Status: Active Protocol: Document 03/18/25 14:31 MB (Rec: 03/18/25 15:28 MB Desktop) Physical Therapy Assessment Goals 4 Impairment Lack of amplitude specific HEP Residential Goal (LTG) Pt will perform HEP with I including LSVT BIG exercises, BIG walking and functional tasks to improve amplitude and quality of movement. 03/18/25: Pt is getting exercises done once a day on non-therapy days and not always done on therapy days. LTG Duration 5 weeks 3 Impairment 4 STS in 30 sec Residential Goal (LTG) Pt will perform at least 9 STS in 30 sec to improve functional strength with transfers. 03/18/25: Pt performs in BIG chair with balance foam cushion under hips and she performs 8 reps without UE support in 30 sec LTG Duration 5 weeks 2 Impairment Decreased gait speed Instructor Apparel Manufacture Goal (LTG) Pt will gait train at least 1, 176 feet with or without AD in 6 minutes to improve community ambulation. 03/18/25: Pt gait trains 1138 feet in 6 minutes with stooped posture and decreased foot clearance and arm swing. Feet shuffle on the carpet and her steps are marching in appearance. She requires superv for safety LTG Duration 5 weeks 1 Impairment Evidence of imbalance Residential Goal (LTG) Pt will perform TUG in less than 10 sec without AD to decrease fall risk. 03/18/25: TUG average over three is 11.66 sec LTG Duration 5 weeks Assessment Summary Assessment Pt is not performing her LSVT exercises per prescription. It is apparent in her HEP performance today that she is not performing exercises consistently or well at home. While she has decreased gait speed, arm swing and foot clearance with gait, she is walking better, without cane, since starting PT. She states that she notices it is easier to get out of a chair. 30 sec STS is better and TUG is about the same. Con't LSVT course. Physical Therapy Plan Frequency and Duration Frequency of Treatment 16 treatments Duration of treatment (weeks) 5 Plan of Care Start Date 02/27/25 Plan of Care End Date 04/08/25 Therapeutic Interventions Therapeutic Interventions Balance Training,Canalithic Repositioning,Coordination Training,Gait Training,Home Exercise Program,Manual Therapy,Neuromuscular Re- education,Patient/Caregiver Education,Self-Care/Home Management,Soft Tissue Mobilization,Taping, Therapeutic Activities, Therapeutic Exercises Modalities Cold Pack/Ice Massage,Hot Packs Next Visit Focus/Plan Next Note Type Treatment Note Next Visit Plan Similar: continue LSVT BIG progressing Standard Standing exercises with chair support as needed back step mainly for balance. Functional Tasks: walking trial uneven inside surface mat, hurdles, Gardening uneven surfaces out back picking off roberson/ carrying bucket as wants to return to home (doesn't get on ground), cooking lifting/ carrying items in different surfaces in kitchen, Shopping bal getting items off shelf ( or home cupboard) high/low, recheck posture eating meal, get up from low chair/sofa trial 24 box step. Keep eye on orthostatics
--- NOTE | 2025-03-19 15:32 | PT.OTN ---
Current Diagnoses Parkinsonism, unspecified (03/19/25) Physical Therapy Treatment Note PT-OP-A Visit Information Start: 02/13/25 08:09 Freq: Status: Active Protocol: Document 03/19/25 14:32 SP (Rec: 03/19/25 15:46 SP [id number]) Out-Patient Physical Therapy Visit Information Visit Information Visit Type Treatment Note Visit Note No KX Visit Start Time 14:32 Visit Stop Time 15:32 Visit Number 11 Number of CHAR CONVEYOR TENDER CELLAR Visits 1 Evaluation Information Evaluation Date 02/27/25 Precautions Precautions Left frozen shoulder per pt report after fracture, severely orthostatic on assessment PT-OP-B Current Condition Start: 02/13/25 08:09 Freq: Status: Active Protocol: Document 02/27/25 14:30 MB (Rec: 02/27/25 15:17 MB Desktop) Current Condition History of Current Condition Onset Date August 2024 Current Complaints Shuffling of feet and imbalance History of Current Pt reports a fall a year ago when she was picking Condition [place]. She fell backwards on a rock pile and broke her left shoulder and injured her head and had to have kenyetta. She has what is presenting as a frozen shoulder and is seeing PT at outside clinic for this and will drop to Saturdays at this time. Current complaints include shuffling feet and balance trouble. Pt lives with her and she does not drive. Her NEGRITO brings her to PT. Pt has back pain d/t arthritis of the spine and left shoulder pain. She takes carbidopa levodopa and it is helpful for her walking and balance. Pt has a cane. Pt has had about 6 falls since last summer. It seems like she loses her balance easily. She is right handed. She is I with bathing and dressing since the left shoulder injury. She feels that her right side is affected more by her PD. Treatment Goals Patient/Caregiver To improve walking and balance Goals PT-OP-C Subjective Start: 02/13/25 08:09 Freq: Status: Active Protocol: Document 03/19/25 14:32 SP (Rec: 03/19/25 15:46 SP [id number]) OP-PT Subjective Patient Comments Patient Comments Pt reports felt ok after last tx. She reports does her HEP 2x/day on days not here and 1x day in am when comes in for PT in pm. Pt stated went out to [employer] for Anniversary Dinner and felt better about getting into mtz and didn't spill any of her food, tall leaned forward and BIG motion eating as learned in PT. She states her family is nervous about her on stairs and her son has alot stairs, could we practice in PT. PT-OP-G Mobility & Gait Start: 02/13/25 08:09 Freq: Status: Active Protocol: Document 02/27/25 14:30 MB (Rec: 02/27/25 15:17 MB Desktop) OP Gait Assessment Comments Gait Comments Shuffling gait and pt does not use SPC effectively: she leaves it hanging on the desk and then tends to carry it in her right hand and not to advance it with her left foot PT-OP-H Neuro Start: 02/13/25 08:09 Freq: Status: Active Protocol: Document 02/27/25 14:30 MB (Rec: 02/27/25 15:17 MB Desktop) Coordination Evaluation Upper Extremity Tests Left Finger to Nose Test Moderate Impairment Pronation/Supination Minimal Impairment Test Right Finger to Nose Test Minimal Impairment Pronation/Supination Minimal Impairment Test Lower Extremity Tests Left Heel on Carreon Test Minimal Impairment Right Heel on Carreon Test Moderate Impairment Vital Signs Comments Vital Signs Comments Orthostatic assessment with BP and HR in RUE: supine: 151/67, 76; standing 97/51, 77; standing 1' 97/53, 77. PT-OP-M Strength Start: 02/13/25 08:09 Freq: Status: Active Protocol: Document 02/27/25 14:30 MB (Rec: 02/27/25 15:17 MB Desktop) Shoulder Strength Shoulder Manual Muscle Testing Left Comments Pt has impaired left shoulder flexion and abduction in setting of left shoulder injury/repair, did not MMT left shoulder Right Flexion 4+ Good+ Abduction (C5) 4 Good Comments Pt has limited right shoulder flexion and abduction Elbow/Forearm Strength Elbow and Forearm Manual Muscle Testing Left Flexion (C6) 4+ Good+ Extension (C7) 5 Normal Right Flexion (C6) 4+ Good+ Extension (C7) 5 Normal Hip Strength Hip Manual Muscle Testing Left Flexion (L2) 4 Good Right Flexion (L2) 4+ Good+ Comments All MMT performed in sitting Knee Strength Knee Manual Muscle Testing Left Flexion (S2) 4+ Good+ Extension (L3) 5 Normal Right Flexion (S2) 4+ Good+ Extension (L3) 5 Normal Ankle/Foot Strength Ankle and Foot Manual Muscle Testing Left Dorsiflexion (L4) 4 Good Right Dorsiflexion (L4) 4 Good Toe Strength Toe Manual Muscle Testing Left Great Toe Extension 4+ Good+ Right Great Toe Extension 4+ Good+ PT-OP-Q Treatments Start: 02/13/25 08:09 Freq: Status: Active Protocol: Document 03/19/25 14:32 SP (Rec: 03/19/25 15:46 SP [id number]) Therapeutic Exercises Sitting Exercises BIG Sit to Stand Equipment Used BIG chair and black balance cushion in chair Reps/Minutes 10 reps no reps no UE support today Comments Improved BIG arms side open stand, fluid sit BIG Side Reach Sitting Exercise Very poor performance and requiring constant cues for Name form, start, legs, ar Side bilateral Equipment Used BIG chair Reps/Minutes 20 alternating reps Comments Constant cues arms out to side, BIG finger flicks, BIG step return, BIG MONA BIG floor ceiling Sitting Exercise Heavy visual reliance on PT Name Side bilateral Equipment Used BIG chair Reps/Minutes 10 reps Comments Cued arms forward first, BIG arms out to side, BIG finger flicks 30 sec STS Comments 8 reps in 30 sec in BIG chair with cushion under hips today Standing Exercises BIG Adaptive Side Rock and Reach Side bilateral Equipment Used BIG chair behind Reps/Minutes 10 reps each side Comments Cues for form: arm out side turn, return on lap BIG Adaptive Rock and Reach Standing Exercise Forward rock and reach Name Side bilateral Equipment Used BIG chair contact Reps/Minutes 10 reps each side Comments Cued BIG arms swing 8-10, front toe up rock back, back heel up rock fwd BIG Adaptive Back Step Side bilateral Equipment Used BIG chair contact Reps/Minutes 10 reps each side Comments Cues to start feet BIG, step back heel down and big front toe, BIG arm back BIG Adaptive Side Step Side bilateral Equipment Used BIG chair contact Reps/Minutes 10 reps Comments Cues to turn her head to look where she is going BIG Adaptive Forward Step Standing Exercise Tends to keep narrow MONA Name Side bilateral Equipment Used BIG chair contact 1 UE Reps/Minutes 10 reps each side Comments Cues BIG arms out side, start BIG feet and bring good back Therapeutic Activity Therapeutic Activity FHT: transfers [facility] & [facility] Task: transfer in/out chair & car Reps/Minutes 3 reps at chair, 5 reps car Comments Chair: Car: BIG walk approach car, open door, BIG sit, BIG legs in, close door, open door, BIG legs out, BIG STS, close door, BIG walk away Gait Training Gait Activity BIG Walking Comments BIG walking MEtronome 91-93bpm fwd, backward 83bpm walking. Cues foot longer stride on L fwd & bwd. BIG step turns with arm swing. Stair mgt 6 sets 4 steps asc RHR/desc LHR BIGGER motion self calibration 7>9 BIG Scale, improved more fluid with reps. Curb mgt asc/ desc. PT-OP-T Assessment and Plan Start: 02/13/25 08:09 Freq: Status: Active Protocol: Document 03/19/25 14:32 SP (Rec: 03/19/25 15:46 SP [id number]) Physical Therapy Assessment Goals 4 Impairment Lack of amplitude specific HEP Mcfp Goal (LTG) Pt will perform HEP with I including LSVT BIG exercises , BIG walking and functional tasks to improve amplitude and quality of movement. 03/18/25: Pt is getting exercises done once a day on non- therapy days and not always done on therapy days. LTG Duration 5 weeks 3 Impairment 4 STS in 30 sec Vocational Rehabilitation Supervisor Goal (LTG) Pt will perform at least 9 STS in 30 sec to improve functional strength with transfers. 03/18/25: Pt performs in BIG chair with balance foam cushion under hips and she performs 8 reps without UE support in 30 sec LTG Duration 5 weeks 2 Impairment Decreased gait speed Vocational Rehabilitation Supervisor Goal (LTG) Pt will gait train at least 1,176 feet with or without AD in 6 minutes to improve community ambulation. 03/18/25: Pt gait trains 1138 feet in 6 minutes with stooped posture and decreased foot clearance and arm swing. Feet shuffle on the carpet and her steps are marching in appearance. She requires superv for safety LTG Duration 5 weeks 1 Impairment Evidence of imbalance Vocational Rehabilitation Supervisor Goal (LTG) Pt will perform TUG in less than 10 sec without AD to decrease fall risk. 03/18/25: TUG average over three is 11.66 sec LTG Duration 5 weeks Assessment Summary Assessment Pt improves more fluid movement with sit stand and without UE support today. Continued cues for BIG arm and leg movement, louder counting during exercises, and longer stride and BIG arms swing during gait use metronome 93bpm forward, 83 bpm backward stepping. Pt requested performing stair mgt to help confidence in/ out son's house, family tells her they are really nervous about her on stairs, improves receiprocal stepping asc/desc 1 HR light glide on rail with set progression. Physical Therapy Plan Frequency and Duration Frequency of 16 treatments Treatment Duration of 5 treatment (weeks) Plan of Care Start 02/27/25 Date Plan of Care End 04/08/25 Date Therapeutic Interventions Therapeutic Balance Training,Canalithic Repositioning,Coordination Interventions Training,Gait Training,Home Exercise Program,Manual Therapy,Neuromuscular Re-education,Patient/Caregiver Education,Self-Care/Home Management,Soft Tissue Mobilization,Taping,Therapeutic Activities,Therapeutic Exercises Modalities Cold Pack/Ice Massage,Hot Packs Next Visit Focus/Plan Next Note Type Treatment Note Next Visit Plan Similar: continue LSVT BIG progressing Standard Standing exercises with chair support as needed back step mainly for balance. Functional Tasks: walking trial uneven inside surface mat, hurdles, stair mgt ( assimulate son's home), Gardening uneven surfaces out back picking off [place]/carrying bucket as wants to return to home (doesn't get on ground), cooking lifting/carrying items in different surfaces in kitchen , Shopping bal getting items off shelf (or home cupboard) high/low, recheck posture eating meal, get up from low chair/sofa trial 24 box step. Keep eye on orthostatics
--- NOTE | 2025-03-20 15:31 | PT.OTN ---
Current Diagnoses Parkinsonism, unspecified (03/20/25) Physical Therapy Treatment Note PT-OP-A Visit Information Start: 02/13/25 08:09 Freq: Status: Active Protocol: Document 03/20/25 14:34 MB (Rec: 03/20/25 15:04 MB Desktop) Out-Patient Physical Therapy Visit Information Visit Information Visit Type Treatment Note Visit Note No KX Visit Start Time 14:34 Visit Stop Time 15:28 Visit Number 12 Number of RETAIL SERVICE LEAD MERCHANDISER Visits 0 Evaluation Information Evaluation Date 02/27/25 Precautions Precautions Left frozen shoulder per pt report after fracture, severely orthostatic on assessment PT-OP-B Current Condition Start: 02/13/25 08:09 Freq: Status: Active Protocol: Document 02/27/25 14:30 MB (Rec: 02/27/25 15:17 MB Desktop) Current Condition History of Current Condition Onset Date August 2024 Current Complaints Shuffling of feet and imbalance History of Current Pt reports a fall a year ago when she was picking Condition [place]. She fell backwards on a rock pile and broke her left shoulder and injured her head and had to have kenyetta. She has what is presenting as a frozen shoulder and is seeing PT at outside clinic for this and will drop to Saturdays at this time. Current complaints include shuffling feet and balance trouble. Pt lives with her and she does not drive. Her NEGRITO brings her to PT. Pt has back pain d/t arthritis of the spine and left shoulder pain. She takes carbidopa levodopa and it is helpful for her walking and balance. Pt has a cane. Pt has had about 6 falls since last summer. It seems like she loses her balance easily. She is right handed. She is I with bathing and dressing since the left shoulder injury. She feels that her right side is affected more by her PD. Treatment Goals Patient/Caregiver To improve walking and balance Goals PT-OP-C Subjective Start: 02/13/25 08:09 Freq: Status: Active Protocol: Document 03/20/25 14:34 MB (Rec: 03/20/25 15:04 MB Desktop) OP-PT Subjective Patient Comments Patient Comments No new reports. PT-OP-G Mobility & Gait Start: 02/13/25 08:09 Freq: Status: Active Protocol: Document 02/27/25 14:30 MB (Rec: 02/27/25 15:17 MB Desktop) OP Gait Assessment Comments Gait Comments Shuffling gait and pt does not use SPC effectively: she leaves it hanging on the desk and then tends to carry it in her right hand and not to advance it with her left foot PT-OP-H Neuro Start: 02/13/25 08:09 Freq: Status: Active Protocol: Document 02/27/25 14:30 MB (Rec: 02/27/25 15:17 MB Desktop) Coordination Evaluation Upper Extremity Tests Left Finger to Nose Test Moderate Impairment Pronation/Supination Minimal Impairment Test Right Finger to Nose Test Minimal Impairment Pronation/Supination Minimal Impairment Test Lower Extremity Tests Left Heel on Carreon Test Minimal Impairment Right Heel on Carreon Test Moderate Impairment Vital Signs Comments Vital Signs Comments Orthostatic assessment with BP and HR in RUE: supine: 151/67, 76; standing 97/51, 77; standing 1' 97/53, 77. PT-OP-M Strength Start: 02/13/25 08:09 Freq: Status: Active Protocol: Document 02/27/25 14:30 MB (Rec: 02/27/25 15:17 MB Desktop) Shoulder Strength Shoulder Manual Muscle Testing Left Comments Pt has impaired left shoulder flexion and abduction in setting of left shoulder injury/repair, did not MMT left shoulder Right Flexion 4+ Good+ Abduction (C5) 4 Good Comments Pt has limited right shoulder flexion and abduction Elbow/Forearm Strength Elbow and Forearm Manual Muscle Testing Left Flexion (C6) 4+ Good+ Extension (C7) 5 Normal Right Flexion (C6) 4+ Good+ Extension (C7) 5 Normal Hip Strength Hip Manual Muscle Testing Left Flexion (L2) 4 Good Right Flexion (L2) 4+ Good+ Comments All MMT performed in sitting Knee Strength Knee Manual Muscle Testing Left Flexion (S2) 4+ Good+ Extension (L3) 5 Normal Right Flexion (S2) 4+ Good+ Extension (L3) 5 Normal Ankle/Foot Strength Ankle and Foot Manual Muscle Testing Left Dorsiflexion (L4) 4 Good Right Dorsiflexion (L4) 4 Good Toe Strength Toe Manual Muscle Testing Left Great Toe Extension 4+ Good+ Right Great Toe Extension 4+ Good+ PT-OP-Q Treatments Start: 02/13/25 08:09 Freq: Status: Active Protocol: Document 03/20/25 14:34 MB (Rec: 03/20/25 15:04 MB Desktop) Therapeutic Exercises Sitting Exercises BIG Sit to Stand Equipment Used BIG chair and black balance cushion in chair Reps/Minutes 10 reps Comments 8 reps without hands and twice she used hands BIG Side Reach Sitting Exercise Very poor performance and requiring constant cues for Name form, start, legs, ar Side bilateral Equipment Used BIG chair Reps/Minutes 20 alternating reps Comments No improvement with this exercise, con't cues for start leg position, space control supervisor BIG floor ceiling Sitting Exercise Heavy visual reliance on PT Name Side bilateral Equipment Used BIG chair Reps/Minutes 10 reps Comments Occ tends to flick arms forward but more often performs correctly backwards Standing Exercises BIG Adaptive Side Rock and Reach Side bilateral Equipment Used BIG chair behind Reps/Minutes 10 reps each side Comments Cues for feet, arm movement BIG Adaptive Rock and Reach Standing Exercise Forward rock and reach, cues not to deb with head and Name shoulders Side bilateral Equipment Used BIG chair contact Reps/Minutes 10 reps each side BIG Adaptive Back Step Standing Exercise Pt tends to deb back with head and upper body rather Name than step and shift Side bilateral Equipment Used BIG chair contact Reps/Minutes 10 reps each side Comments Cues for big stance, shift weight back, big front toe BIG Adaptive Side Step Side bilateral Equipment Used BIG chair contact Reps/Minutes 10 reps Comments Better turning of head with stepping BIG Adaptive Forward Step Standing Exercise Tends to keep narrow MONA Name Side bilateral Equipment Used BIG chair contact 1 UE Reps/Minutes 10 reps each side Comments Cues for big stance and stepping Gait Training Gait Activity BIG Walking Comments Outside gait today and cues for BIG arm swing, working on foot clearance as well, usually superv assistance, tends to have slower gait speed. CGA for steps and curbs, cues. Superv and cues for backwards stepping Neuro Re-Education Treatment Balance Activities Balance activities with gait outside Comments Worked on uneven surfaces, walking around bushes, through grass, inclines, changing gait surfaces today with gait outside to promote balance and pt requires superv to CGA, CGA for picking [place] PT-OP-T Assessment and Plan Start: 02/13/25 08:09 Freq: Status: Active Protocol: Document 03/20/25 14:34 MB (Rec: 03/20/25 15:04 MB Desktop) Physical Therapy Assessment Goals 4 Impairment Lack of amplitude specific HEP Recycle Coordinator Goal (LTG) Pt will perform HEP with I including LSVT BIG exercises , BIG walking and functional tasks to improve amplitude and quality of movement. 03/18/25: Pt is getting exercises done once a day on non- therapy days and not always done on therapy days. LTG Duration 5 weeks 3 Impairment 4 STS in 30 sec [facility] Goal (LTG) Pt will perform at least 9 STS in 30 sec to improve functional strength with transfers. 03/18/25: Pt performs in BIG chair with balance foam cushion under hips and she performs 8 reps without UE support in 30 sec LTG Duration 5 weeks 2 Impairment Decreased gait speed [facility] Goal (LTG) Pt will gait train at least 1,176 feet with or without AD in 6 minutes to improve community ambulation. 03/18/25: Pt gait trains 1138 feet in 6 minutes with stooped posture and decreased foot clearance and arm swing. Feet shuffle on the carpet and her steps are marching in appearance. She requires superv for safety LTG Duration 5 weeks 1 Impairment Evidence of imbalance Recycle Coordinator Goal (LTG) Pt will perform TUG in less than 10 sec without AD to decrease fall risk. 03/18/25: TUG average over three is 11.66 sec LTG Duration 5 weeks Assessment Summary Assessment Some improvement with some exercises but not with other exercises. Progressed gait and balance activities outside today. Pt has had slow progress with LSVT BIG. Given questionable compliance with exercises at home and safety presentation in OPPT, will monitor if she is appropriate for LSVT BIG for Life class. Currently, I do not think it the safest option for patient and for overall class and instructor management. Physical Therapy Plan Frequency and Duration Frequency of 16 treatments Treatment Duration of 5 treatment (weeks) Plan of Care Start 02/27/25 Date Plan of Care End 04/08/25 Date Therapeutic Interventions Therapeutic Balance Training,Canalithic Repositioning,Coordination Interventions Training,Gait Training,Home Exercise Program,Manual Therapy,Neuromuscular Re-education,Patient/Caregiver Education,Self-Care/Home Management,Soft Tissue Mobilization,Taping,Therapeutic Activities,Therapeutic Exercises Modalities Cold Pack/Ice Massage,Hot Packs Next Visit Focus/Plan Next Note Type Treatment Note Next Visit Plan Similar: continue LSVT BIG progressing Standard Standing exercises with chair support as needed back step mainly for balance. Functional Tasks: walking trial uneven inside surface mat, hurdles, stair mgt ( assimulate son's home), Gardening uneven surfaces out back picking off [place]/carrying bucket as wants to return to home (doesn't get on ground), cooking lifting/carrying items in different surfaces in kitchen , Shopping bal getting items off shelf (or home cupboard) high/low, recheck posture eating meal, get up from low chair/sofa trial 24 box step. Keep eye on orthostatics
--- NOTE | 2025-03-27 15:25 | PT.OTN ---
Current Diagnoses Parkinsonism, unspecified (03/27/25) Physical Therapy Treatment Note PT-OP-A Visit Information Start: 02/13/25 08:09 Freq: Status: Active Protocol: Document 03/27/25 14:31 MB (Rec: 03/27/25 15:00 MB Desktop) Out-Patient Physical Therapy Visit Information Visit Information Visit Type Treatment Note Visit Note No KX Visit Start Time 14:31 Visit Stop Time 15:25 Visit Number 13 Number of SHOP CLERK Visits 0 Evaluation Information Evaluation Date 02/27/25 Precautions Precautions Left frozen shoulder per pt report after fracture, severely orthostatic on assessment PT-OP-B Current Condition Start: 02/13/25 08:09 Freq: Status: Active Protocol: Document 02/27/25 14:30 MB (Rec: 02/27/25 15:17 MB Desktop) Current Condition History of Current Condition Onset Date August 2024 Current Complaints Shuffling of feet and imbalance History of Current Pt reports a fall a year ago when she was picking Condition [employer]. She fell backwards on a rock pile and broke her left shoulder and injured her head and had to have kenyetta. She has what is presenting as a frozen shoulder and is seeing PT at outside clinic for this and will drop to Saturdays at this time. Current complaints include shuffling feet and balance trouble. Pt lives with her and she does not drive. Her NEGRITO brings her to PT. Pt has back pain d/t arthritis of the spine and left shoulder pain. She takes carbidopa levodopa and it is helpful for her walking and balance. Pt has a cane. Pt has had about 6 falls since last summer. It seems like she loses her balance easily. She is right handed. She is I with bathing and dressing since the left shoulder injury. She feels that her right side is affected more by her PD. Treatment Goals Patient/Caregiver To improve walking and balance Goals PT-OP-C Subjective Start: 02/13/25 08:09 Freq: Status: Active Protocol: Document 03/27/25 14:31 MB (Rec: 03/27/25 15:00 MB Desktop) OP-PT Subjective Patient Comments Patient Comments Pt saw her neurologist in [place]. Her left shoulder is sore and about the same. She thinks her exercises are going better. PT-OP-G Mobility & Gait Start: 02/13/25 08:09 Freq: Status: Active Protocol: Document 02/27/25 14:30 MB (Rec: 02/27/25 15:17 MB Desktop) OP Gait Assessment Comments Gait Comments Shuffling gait and pt does not use SPC effectively: she leaves it hanging on the desk and then tends to carry it in her right hand and not to advance it with her left foot PT-OP-H Neuro Start: 02/13/25 08:09 Freq: Status: Active Protocol: Document 02/27/25 14:30 MB (Rec: 02/27/25 15:17 MB Desktop) Coordination Evaluation Upper Extremity Tests Left Finger to Nose Test Moderate Impairment Pronation/Supination Minimal Impairment Test Right Finger to Nose Test Minimal Impairment Pronation/Supination Minimal Impairment Test Lower Extremity Tests Left Heel on Carreon Test Minimal Impairment Right Heel on Carreon Test Moderate Impairment Vital Signs Comments Vital Signs Comments Orthostatic assessment with BP and HR in RUE: supine: 151/67, 76; standing 97/51, 77; standing 1' 97/53, 77. PT-OP-M Strength Start: 02/13/25 08:09 Freq: Status: Active Protocol: Document 02/27/25 14:30 MB (Rec: 02/27/25 15:17 MB Desktop) Shoulder Strength Shoulder Manual Muscle Testing Left Comments Pt has impaired left shoulder flexion and abduction in setting of left shoulder injury/repair, did not MMT left shoulder Right Flexion 4+ Good+ Abduction (C5) 4 Good Comments Pt has limited right shoulder flexion and abduction Elbow/Forearm Strength Elbow and Forearm Manual Muscle Testing Left Flexion (C6) 4+ Good+ Extension (C7) 5 Normal Right Flexion (C6) 4+ Good+ Extension (C7) 5 Normal Hip Strength Hip Manual Muscle Testing Left Flexion (L2) 4 Good Right Flexion (L2) 4+ Good+ Comments All MMT performed in sitting Knee Strength Knee Manual Muscle Testing Left Flexion (S2) 4+ Good+ Extension (L3) 5 Normal Right Flexion (S2) 4+ Good+ Extension (L3) 5 Normal Ankle/Foot Strength Ankle and Foot Manual Muscle Testing Left Dorsiflexion (L4) 4 Good Right Dorsiflexion (L4) 4 Good Toe Strength Toe Manual Muscle Testing Left Great Toe Extension 4+ Good+ Right Great Toe Extension 4+ Good+ PT-OP-Q Treatments Start: 02/13/25 08:09 Freq: Status: Active Protocol: Document 03/27/25 14:31 MB (Rec: 03/27/25 15:00 MB Desktop) Therapeutic Exercises Sitting Exercises BIG Sit to Stand Equipment Used BIG chair and black balance cushion in chair Reps/Minutes 10 reps Comments 5 reps without hands and 5 reps with hands BIG Side Reach Sitting Exercise Very poor performance and requiring constant cues for Name form, start, legs, ar Side bilateral Equipment Used BIG chair Reps/Minutes 20 alternating reps Comments No improvement with this exercise, con't cues for start leg position, special education educational assistant BIG floor ceiling Sitting Exercise Heavy visual reliance on PT Name Side bilateral Equipment Used BIG chair Reps/Minutes 10 reps Standing Exercises BIG Adaptive Side Rock and Reach Side bilateral Equipment Used BIG chair behind Reps/Minutes 10 reps each side Comments Cues for feet, arm movement BIG Adaptive Rock and Reach Standing Exercise Forward rock and reach Name Side bilateral Equipment Used BIG chair contact Reps/Minutes 10 reps each side BIG Adaptive Back Step Standing Exercise Pt tends to deb back with head and upper body rather Name than step and shift Side bilateral Equipment Used BIG chair contact Reps/Minutes 10 reps each side Comments Cues for big stance, shift weight back, big front toe, cues for wide stance BIG Adaptive Side Step Side bilateral Equipment Used BIG chair contact Reps/Minutes 10 reps Comments Tends to step forward in scaption plane rather than to the side BIG Adaptive Forward Step Standing Exercise Tends to keep narrow MONA Name Side bilateral Equipment Used BIG chair contact 1 UE Reps/Minutes 10 reps each side Comments Cues for big stance and stepping Gait Training Gait Activity BIG Walking Comments Outside gait today and cues for BIG arm swing, working on foot clearance as well, usually superv assistance, tends to have slower gait speed. CGA for steps and curbs, cues. Superv and cues for backwards stepping. Gait training with metronome 90 BPM for most of outdoor walking and pt has a challenging time keeping jorge. Neuro Re-Education Treatment Balance Activities Balance activities with gait outside Comments Worked on uneven surfaces, walking around bushes, through grass, inclines, changing gait surfaces today with gait outside to promote balance and pt requires superv to CGA, CGA for picking up and moving small rocks PT-OP-T Assessment and Plan Start: 02/13/25 08:09 Freq: Status: Active Protocol: Document 03/27/25 14:31 MB (Rec: 03/27/25 15:00 MB Desktop) Physical Therapy Assessment Goals 4 Impairment Lack of amplitude specific HEP Track Repair Worker Goal (LTG) Pt will perform HEP with I including LSVT BIG exercises , BIG walking and functional tasks to improve amplitude and quality of movement. 03/18/25: Pt is getting exercises done once a day on non- therapy days and not always done on therapy days. LTG Duration 5 weeks 3 Impairment 4 STS in 30 sec Track Repair Worker Goal (LTG) Pt will perform at least 9 STS in 30 sec to improve functional strength with transfers. 03/18/25: Pt performs in BIG chair with balance foam cushion under hips and she performs 8 reps without UE support in 30 sec LTG Duration 5 weeks 2 Impairment Decreased gait speed Track Repair Worker Goal (LTG) Pt will gait train at least 1,176 feet with or without AD in 6 minutes to improve community ambulation. 03/18/25: Pt gait trains 1138 feet in 6 minutes with stooped posture and decreased foot clearance and arm swing. Feet shuffle on the carpet and her steps are marching in appearance. She requires superv for safety LTG Duration 5 weeks 1 Impairment Evidence of imbalance Senior Living Goal (LTG) Pt will perform TUG in less than 10 sec without AD to decrease fall risk. 03/18/25: TUG average over three is 11.66 sec LTG Duration 5 weeks Assessment Summary Assessment Pt is not really improving with exercises, requires heavy verbal and visual cues. She does not move leg back much with sitting side rock and reach and she does not hold onto the chair. Physical Therapy Plan Frequency and Duration Frequency of 16 treatments Treatment Duration of 5 treatment (weeks) Plan of Care Start 02/27/25 Date Plan of Care End 04/08/25 Date Therapeutic Interventions Therapeutic Balance Training,Canalithic Repositioning,Coordination Interventions Training,Gait Training,Home Exercise Program,Manual Therapy,Neuromuscular Re-education,Patient/Caregiver Education,Self-Care/Home Management,Soft Tissue Mobilization,Taping,Therapeutic Activities,Therapeutic Exercises Modalities Cold Pack/Ice Massage,Hot Packs Next Visit Focus/Plan Next Note Type Treatment Note Next Visit Plan Similar: continue LSVT BIG progressing Standard Standing exercises with chair support as needed back step mainly for balance. Functional Tasks: walking trial uneven inside surface mat, hurdles, stair mgt ( assimulate son's home), Gardening uneven surfaces out back picking off roberson/carrying bucket as wants to return to home (doesn't get on ground), cooking lifting/carrying items in different surfaces in kitchen , Shopping bal getting items off shelf (or home cupboard) high/low, recheck posture eating meal, get up from low chair/sofa trial 24 box step. Keep eye on orthostatics
--- NOTE | 2025-04-02 15:40 | PT.OTN ---
Current Diagnoses Parkinsonism, unspecified (04/02/25) Physical Therapy Treatment Note PT-OP-A Visit Information Start: 02/13/25 08:09 Freq: Status: Active Protocol: Document 04/02/25 14:40 SP (Rec: 04/02/25 15:22 SP [id number]) Out-Patient Physical Therapy Visit Information Visit Information Visit Type Treatment Note Visit Note No KX Visit Start Time 14:40 Visit Stop Time 15:40 Visit Number 14 Number of SCRUB NURSE Visits 1 Evaluation Information Evaluation Date 02/27/25 Precautions Precautions Left frozen shoulder per pt report after fracture, severely orthostatic on assessment PT-OP-B Current Condition Start: 02/13/25 08:09 Freq: Status: Active Protocol: Document 02/27/25 14:30 MB (Rec: 02/27/25 15:17 MB Desktop) Current Condition History of Current Condition Onset Date August 2024 Current Complaints Shuffling of feet and imbalance History of Current Pt reports a fall a year ago when she was picking 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 She fell backwards on a rock pile and broke her left shoulder and injured her head and had to have kenyetta. She has what is presenting as a frozen shoulder and is seeing PT at outside clinic for this and will drop to Saturdays at this time. Current complaints include shuffling feet and balance trouble. Pt lives with her and she does not drive. Her NEGRITO brings her to PT. Pt has back pain d/t arthritis of the spine and left shoulder pain. She takes carbidopa levodopa and it is helpful for her walking and balance. Pt has a cane. Pt has had about 6 falls since last summer. It seems like she loses her balance easily. She is right handed. She is I with bathing and dressing since the left shoulder injury. She feels that her right side is affected more by her PD. Treatment Goals Patient/Caregiver To improve walking and balance Goals PT-OP-C Subjective Start: 02/13/25 08:09 Freq: Status: Active Protocol: Document 04/02/25 14:40 SP (Rec: 04/02/25 15:22 SP [id number]) OP-PT Subjective Patient Comments Patient Comments Pt reports performs most of her HEP am and evening. She reports neurologist follow up in May/Jun. Her R ankle feels frozen at times. She states at night her legs feel stiff hard to move and other times warm and bothersome. Today she states legs feel fine. She still has couple more sessions with other PT for her L shld, states sees a big improvement between seeing other PT and LSVT BIG with IH. She wants to work on standing on uneven surface assimilate picking off flower buds on bushes as does home with her maggie bushes, wants for confidence standing and bending over to put flower buds in bucket. PT-OP-G Mobility & Gait Start: 02/13/25 08:09 Freq: Status: Active Protocol: Document 02/27/25 14:30 MB (Rec: 02/27/25 15:17 MB Desktop) OP Gait Assessment Comments Gait Comments Shuffling gait and pt does not use SPC effectively: she leaves it hanging on the desk and then tends to carry it in her right hand and not to advance it with her left foot PT-OP-H Neuro Start: 02/13/25 08:09 Freq: Status: Active Protocol: Document 02/27/25 14:30 MB (Rec: 02/27/25 15:17 MB Desktop) Coordination Evaluation Upper Extremity Tests Left Finger to Nose Test Moderate Impairment Pronation/Supination Minimal Impairment Test Right Finger to Nose Test Minimal Impairment Pronation/Supination Minimal Impairment Test Lower Extremity Tests Left Heel on Carreon Test Minimal Impairment Right Heel on Carreon Test Moderate Impairment Vital Signs Comments Vital Signs Comments Orthostatic assessment with BP and HR in RUE: supine: 151/67, 76; standing 97/51, 77; standing 1' 97/53, 77. PT-OP-M Strength Start: 02/13/25 08:09 Freq: Status: Active Protocol: Document 02/27/25 14:30 MB (Rec: 02/27/25 15:17 MB Desktop) Shoulder Strength Shoulder Manual Muscle Testing Left Comments Pt has impaired left shoulder flexion and abduction in setting of left shoulder injury/repair, did not MMT left shoulder Right Flexion 4+ Good+ Abduction (C5) 4 Good Comments Pt has limited right shoulder flexion and abduction Elbow/Forearm Strength Elbow and Forearm Manual Muscle Testing Left Flexion (C6) 4+ Good+ Extension (C7) 5 Normal Right Flexion (C6) 4+ Good+ Extension (C7) 5 Normal Hip Strength Hip Manual Muscle Testing Left Flexion (L2) 4 Good Right Flexion (L2) 4+ Good+ Comments All MMT performed in sitting Knee Strength Knee Manual Muscle Testing Left Flexion (S2) 4+ Good+ Extension (L3) 5 Normal Right Flexion (S2) 4+ Good+ Extension (L3) 5 Normal Ankle/Foot Strength Ankle and Foot Manual Muscle Testing Left Dorsiflexion (L4) 4 Good Right Dorsiflexion (L4) 4 Good Toe Strength Toe Manual Muscle Testing Left Great Toe Extension 4+ Good+ Right Great Toe Extension 4+ Good+ PT-OP-Q Treatments Start: 02/13/25 08:09 Freq: Status: Active Protocol: Document 04/02/25 14:40 SP (Rec: 04/02/25 15:22 SP [id number]) Therapeutic Exercises Sitting Exercises BIG Sit to Stand Equipment Used BIG chair and black balance cushion in chair Reps/Minutes 10 reps (no UE support, very minimal momentum to stand) Comments good fluid movement, cued louder count BIG Side Reach Sitting Exercise Very poor performance and requiring constant cues for Name form, start, legs, ar Side bilateral Equipment Used BIG chair Reps/Minutes 20 alternating reps Comments No improvement with this exercise, con't cues for start leg position, flick BIG floor ceiling Sitting Exercise Heavy visual reliance on PT Name Side bilateral Equipment Used BIG chair Reps/Minutes 10 reps Comments Cued BIG finger flicks Standing Exercises BIG Adaptive Side Rock and Reach Side bilateral Equipment Used BIG chair behind Reps/Minutes 10 reps each side Comments Cues for feet, arm movement out at side as turn and return front BIG Adaptive Rock and Reach Standing Exercise Forward rock and reach Name Side bilateral Equipment Used BIG chair contact Reps/Minutes 10 reps each side Comments Tends to bend both knees and sway hip fwd/bwd, cued wt shift f/b arm swing BIG Adaptive Back Step Standing Exercise Pt tends to deb back with head and upper body rather Name than step and shift Side bilateral Equipment Used BIG chair contact, back foot heel down Reps/Minutes 10 reps each side Comments Cues for big stance, shift weight back, big front toe, cues for wide stance BIG Adaptive Side Step Side bilateral Equipment Used BIG chair contact 1 UE best form Reps/Minutes 10 reps each side Comments Cued step fwd, not scaption plane rather than to the side BIG Adaptive Forward Step Standing Exercise Tends to keep narrow MONA Name Side bilateral Equipment Used BIG chair contact 1 UE Reps/Minutes 10 reps each side Comments Cues for big stance and stepping Gait Training Gait Activity BIG Walking Comments Outside gait incline/decline side walk around building near and ER hallway today and cues for BIG arm swing, working on foot clearance heel toe as well, usually superv assistance, tends to have slower gait speed. close SBA for stairs PRN/light rail glide 1 UE and curbs no UE support, cues reciprocal stepping. Superv and cues for backwards stepping increase stride. Gait training with metronome 90 BPM for most of outdoor walking and pt has a challenging time keeping jorge. Neuro Re-Education Treatment Balance Activities Balance activities with gait outside Comments Worked on uneven surfaces gravel, walking around bushes , through grass, inclines/declines, changing gait surfaces today with gait outside to promote balance and pt requires superv to CGA, CGA for picking flower peddles on ground. PT-OP-T Assessment and Plan Start: 02/13/25 08:09 Freq: Status: Active Protocol: Document 04/02/25 14:40 SP (Rec: 04/02/25 15:22 SP [id number]) Physical Therapy Assessment Goals 4 Impairment Lack of amplitude specific HEP Music Therapist Goal (LTG) Pt will perform HEP with I including LSVT BIG exercises , BIG walking and functional tasks to improve amplitude and quality of movement. 03/18/25: Pt is getting exercises done once a day on non- therapy days and not always done on therapy days. LTG Duration 5 weeks 3 Impairment 4 STS in 30 sec Longterm Goal (LTG) Pt will perform at least 9 STS in 30 sec to improve functional strength with transfers. 03/18/25: Pt performs in BIG chair with balance foam cushion under hips and she performs 8 reps without UE support in 30 sec LTG Duration 5 weeks 2 Impairment Decreased gait speed Music Therapist Goal (LTG) Pt will gait train at least 1,176 feet with or without AD in 6 minutes to improve community ambulation. 03/18/25: Pt gait trains 1138 feet in 6 minutes with stooped posture and decreased foot clearance and arm swing. Feet shuffle on the carpet and her steps are marching in appearance. She requires superv for safety LTG Duration 5 weeks 1 Impairment Evidence of imbalance Music Therapist Goal (LTG) Pt will perform TUG in less than 10 sec without AD to decrease fall risk. 03/18/25: TUG average over three is 11.66 sec LTG Duration 5 weeks Assessment Summary Assessment Continued self calibration inquiries to assist pt improved BIG movement with exercises and gait forward and backward. Typically states 6/10 so challenge increase to 8/10 which see changes for little bigger. She still requires cuing and demonstration follow return demonstration for increased LE and UE BIGGER positioning during ther ex. Pt improved BIgger motion and arm out to side standing ex while hanging onto chair and follow SCRUB NURSE today with all exercises. Still challenged with stepping back proper form off balance cues for back foot fully flat on floor and forward rock and reach tends to rock pelvis/trunk vs wt shift between each LE. She doesn't keep jorge 90 bpm tends be quicker with smaller stride, little improvement heel scuff decreased when cuing and demonstration heel toe following SCRUB NURSE with modeling. Physical Therapy Plan Frequency and Duration Frequency of 16 treatments Treatment Duration of 5 treatment (weeks) Plan of Care Start 02/27/25 Date Plan of Care End 04/08/25 Date Therapeutic Interventions Therapeutic Balance Training,Canalithic Repositioning,Coordination Interventions Training,Gait Training,Home Exercise Program,Manual Therapy,Neuromuscular Re-education,Patient/Caregiver Education,Self-Care/Home Management,Soft Tissue Mobilization,Taping,Therapeutic Activities,Therapeutic Exercises Modalities Cold Pack/Ice Massage,Hot Packs Next Visit Focus/Plan Next Note Type Treatment Note Next Visit Plan Next appt: carry bucket and assimilate picking off flower buds on bushes outside uneven grass and squat put in bucket and sit stand from low surface as her couch. Similar: continue LSVT BIG progressing Standard Standing exercises with chair support as needed back step mainly for balance. Functional Tasks: walking trial uneven inside surface mat, hurdles, stair mgt ( assimilate son's home), Gardening uneven surfaces out back picking off [place]/carrying bucket as wants to return to home (doesn't get on ground), cooking lifting/carrying items in different surfaces in kitchen , Shopping bal getting items off shelf (or home cupboard) high/low, recheck posture eating meal. Keep eye on orthostatics
--- NOTE | 2025-04-03 15:28 | PT.OTN ---
Current Diagnoses Parkinsonism, unspecified (04/03/25) Physical Therapy Treatment Note PT-OP-A Visit Information Start: 02/13/25 08:09 Freq: Status: Active Protocol: Document 04/03/25 14:31 MB (Rec: 04/03/25 14:57 MB Desktop) Out-Patient Physical Therapy Visit Information Visit Information Visit Type Treatment Note Visit Note No KX Visit Start Time 14:31 Visit Stop Time 15:26 Visit Number 15 Number of MECHANICAL ENGINEERING TECHNOLOGIST Visits 0 Evaluation Information Evaluation Date 02/27/25 Precautions Precautions Left frozen shoulder per pt report after fracture, severely orthostatic on assessment PT-OP-B Current Condition Start: 02/13/25 08:09 Freq: Status: Active Protocol: Document 02/27/25 14:30 MB (Rec: 02/27/25 15:17 MB Desktop) Current Condition History of Current Condition Onset Date August 2024 Current Complaints Shuffling of feet and imbalance History of Current Pt reports a fall a year ago when she was picking Condition [place]. She fell backwards on a rock pile and broke her left shoulder and injured her head and had to have kenyetta. She has what is presenting as a frozen shoulder and is seeing PT at outside clinic for this and will drop to Saturdays at this time. Current complaints include shuffling feet and balance trouble. Pt lives with her and she does not drive. Her NEGRITO brings her to PT. Pt has back pain d/t arthritis of the spine and left shoulder pain. She takes carbidopa levodopa and it is helpful for her walking and balance. Pt has a cane. Pt has had about 6 falls since last summer. It seems like she loses her balance easily. She is right handed. She is I with bathing and dressing since the left shoulder injury. She feels that her right side is affected more by her PD. Treatment Goals Patient/Caregiver To improve walking and balance Goals PT-OP-C Subjective Start: 02/13/25 08:09 Freq: Status: Active Protocol: Document 04/03/25 14:31 MB (Rec: 04/03/25 14:57 MB Desktop) OP-PT Subjective Patient Comments Patient Comments Pt answers questions as PT asks about how she is doing. She states she is doing well. Her left arm is tender. Pt reports some burning in legs and feet at night-time. She told her neurologist about this and may go up on carbidopa levodopa in the future. PT-OP-G Mobility & Gait Start: 02/13/25 08:09 Freq: Status: Active Protocol: Document 02/27/25 14:30 MB (Rec: 02/27/25 15:17 MB Desktop) OP Gait Assessment Comments Gait Comments Shuffling gait and pt does not use SPC effectively: she leaves it hanging on the desk and then tends to carry it in her right hand and not to advance it with her left foot PT-OP-H Neuro Start: 02/13/25 08:09 Freq: Status: Active Protocol: Document 02/27/25 14:30 MB (Rec: 02/27/25 15:17 MB Desktop) Coordination Evaluation Upper Extremity Tests Left Finger to Nose Test Moderate Impairment Pronation/Supination Minimal Impairment Test Right Finger to Nose Test Minimal Impairment Pronation/Supination Minimal Impairment Test Lower Extremity Tests Left Heel on Carreon Test Minimal Impairment Right Heel on Carreon Test Moderate Impairment Vital Signs Comments Vital Signs Comments Orthostatic assessment with BP and HR in RUE: supine: 151/67, 76; standing 97/51, 77; standing 1' 97/53, 77. PT-OP-M Strength Start: 02/13/25 08:09 Freq: Status: Active Protocol: Document 02/27/25 14:30 MB (Rec: 02/27/25 15:17 MB Desktop) Shoulder Strength Shoulder Manual Muscle Testing Left Comments Pt has impaired left shoulder flexion and abduction in setting of left shoulder injury/repair, did not MMT left shoulder Right Flexion 4+ Good+ Abduction (C5) 4 Good Comments Pt has limited right shoulder flexion and abduction Elbow/Forearm Strength Elbow and Forearm Manual Muscle Testing Left Flexion (C6) 4+ Good+ Extension (C7) 5 Normal Right Flexion (C6) 4+ Good+ Extension (C7) 5 Normal Hip Strength Hip Manual Muscle Testing Left Flexion (L2) 4 Good Right Flexion (L2) 4+ Good+ Comments All MMT performed in sitting Knee Strength Knee Manual Muscle Testing Left Flexion (S2) 4+ Good+ Extension (L3) 5 Normal Right Flexion (S2) 4+ Good+ Extension (L3) 5 Normal Ankle/Foot Strength Ankle and Foot Manual Muscle Testing Left Dorsiflexion (L4) 4 Good Right Dorsiflexion (L4) 4 Good Toe Strength Toe Manual Muscle Testing Left Great Toe Extension 4+ Good+ Right Great Toe Extension 4+ Good+ PT-OP-Q Treatments Start: 02/13/25 08:09 Freq: Status: Active Protocol: Document 04/03/25 14:31 MB (Rec: 04/03/25 14:57 MB Desktop) Therapeutic Exercises Sitting Exercises BIG Sit to Stand Equipment Used BIG chair and black balance cushion in chair Reps/Minutes 10 reps Comments No hands BIG Side Reach Sitting Exercise Very poor performance and requiring constant cues for Name form, start, legs, ar Side bilateral Equipment Used BIG chair Reps/Minutes 20 alternating reps Comments No improvement BIG floor ceiling Sitting Exercise Heavy visual reliance on PT Name Side bilateral Equipment Used BIG chair Reps/Minutes 10 reps Comments Better performance today Standing Exercises BIG Adaptive Side Rock and Reach Side bilateral Equipment Used BIG chair behind Reps/Minutes 10 reps each side Comments Cues for feet, arm movement out at side as turn and return front BIG Adaptive Rock and Reach Standing Exercise Forward rock and reach Name Side bilateral Equipment Used BIG chair contact Reps/Minutes 10 reps each side Comments Tends to bend both knees and sway hip fwd/bwd, cued wt shift f/b arm swing BIG Adaptive Back Step Standing Exercise Pt tends to deb back with head and upper body rather Name than step and shift Side bilateral Equipment Used BIG chair contact, back foot heel down Reps/Minutes 10 reps each side Comments Ongoing cues and trouble with this one BIG Adaptive Side Step Side bilateral Equipment Used BIG chair Reps/Minutes 10 reps each side Comments Cues to turn head with step BIG Adaptive Forward Step Standing Exercise Tends to keep narrow MONA Name Side bilateral Equipment Used BIG chair Reps/Minutes 10 reps each side Comments Cues for big stance Gait Training Gait Activity BIG Walking Comments Pt has trouble following 90 BPM metronome outside on varying surfaces and cues to take bigger steps and work on arm swing, pt con't with forward posture. Gait up and down grassy incline, outdoor steps with rail or other support, through bushes on incline and on gravel, over curb and changing surfaces in parking lot and sidewalk, superv to CGA Neuro Re-Education Treatment Balance Activities Balance activities with gait outside Comments CGA on uneven surfaces, forward and backwards between cones in gym, working on bigger weight shifting steps right and left forward and she is able to take bigger backwards steps after this, weaving around cones forward and backwards and she tends to have more shuffling steps. CGA backwards and side stepping in the hallway, superv to picker/puller cones PT-OP-T Assessment and Plan Start: 02/13/25 08:09 Freq: Status: Active Protocol: Document 04/03/25 14:31 MB (Rec: 04/03/25 14:57 MB Desktop) Physical Therapy Assessment Goals 4 Impairment Lack of amplitude specific HEP Sex Worker Or Escort Goal (LTG) Pt will perform HEP with I including LSVT BIG exercises , BIG walking and functional tasks to improve amplitude and quality of movement. 03/18/25: Pt is getting exercises done once a day on non- therapy days and not always done on therapy days. LTG Duration 5 weeks 3 Impairment 4 STS in 30 sec [facility] Goal (LTG) Pt will perform at least 9 STS in 30 sec to improve functional strength with transfers. 03/18/25: Pt performs in BIG chair with balance foam cushion under hips and she performs 8 reps without UE support in 30 sec LTG Duration 5 weeks 2 Impairment Decreased gait speed Sex Worker Or Escort Goal (LTG) Pt will gait train at least 1,176 feet with or without AD in 6 minutes to improve community ambulation. 03/18/25: Pt gait trains 1138 feet in 6 minutes with stooped posture and decreased foot clearance and arm swing. Feet shuffle on the carpet and her steps are marching in appearance. She requires superv for safety LTG Duration 5 weeks 1 Impairment Evidence of imbalance [facility] Goal (LTG) Pt will perform TUG in less than 10 sec without AD to decrease fall risk. 03/18/25: TUG average over three is 11.66 sec LTG Duration 5 weeks Assessment Summary Assessment Pt is performing about the same with exercises. Physical Therapy Plan Frequency and Duration Frequency of 16 treatments Treatment Duration of 5 treatment (weeks) Plan of Care Start 02/27/25 Date Plan of Care End 04/08/25 Date Therapeutic Interventions Therapeutic Balance Training,Canalithic Repositioning,Coordination Interventions Training,Gait Training,Home Exercise Program,Manual Therapy,Neuromuscular Re-education,Patient/Caregiver Education,Self-Care/Home Management,Soft Tissue Mobilization,Taping,Therapeutic Activities,Therapeutic Exercises Modalities Cold Pack/Ice Massage,Hot Packs Next Visit Focus/Plan Next Note Type Treatment Note Next Visit Plan Address goals and prepare for d/c
--- NOTE | 2025-04-04 15:32 | PT.OTN ---
Current Diagnoses Parkinsonism, unspecified (04/04/25) Physical Therapy Treatment Note PT-OP-A Visit Information Start: 02/13/25 08:09 Freq: Status: Active Protocol: Document 04/04/25 14:32 SP (Rec: 04/04/25 15:26 SP [id number]) Out-Patient Physical Therapy Visit Information Visit Information Visit Type Treatment Note Visit Note No KX Visit Start Time 14:32 Visit Stop Time 15:32 Visit Number 16 Number of STAKER SURVEYING Visits 1 Evaluation Information Evaluation Date 02/27/25 Precautions Precautions Left frozen shoulder per pt report after fracture, severely orthostatic on assessment PT-OP-B Current Condition Start: 02/13/25 08:09 Freq: Status: Active Protocol: Document 02/27/25 14:30 MB (Rec: 02/27/25 15:17 MB Desktop) Current Condition History of Current Condition Onset Date August 2024 Current Complaints Shuffling of feet and imbalance History of Current Pt reports a fall a year ago when she was picking Condition [place]. She fell backwards on a rock pile and broke her left shoulder and injured her head and had to have kenyetta. She has what is presenting as a frozen shoulder and is seeing PT at outside clinic for this and will drop to Saturdays at this time. Current complaints include shuffling feet and balance trouble. Pt lives with her and she does not drive. Her NEGRITO brings her to PT. Pt has back pain d/t arthritis of the spine and left shoulder pain. She takes carbidopa levodopa and it is helpful for her walking and balance. Pt has a cane. Pt has had about 6 falls since last summer. It seems like she loses her balance easily. She is right handed. She is I with bathing and dressing since the left shoulder injury. She feels that her right side is affected more by her PD. Treatment Goals Patient/Caregiver To improve walking and balance Goals PT-OP-C Subjective Start: 02/13/25 08:09 Freq: Status: Active Protocol: Document 04/04/25 14:32 SP (Rec: 04/04/25 15:26 SP [id number]) OP-PT Subjective Patient Comments Patient Comments Pt PT-OP-G Mobility & Gait Start: 02/13/25 08:09 Freq: Status: Active Protocol: Document 02/27/25 14:30 MB (Rec: 02/27/25 15:17 MB Desktop) OP Gait Assessment Comments Gait Comments Shuffling gait and pt does not use SPC effectively: she leaves it hanging on the desk and then tends to carry it in her right hand and not to advance it with her left foot PT-OP-H Neuro Start: 02/13/25 08:09 Freq: Status: Active Protocol: Document 02/27/25 14:30 MB (Rec: 02/27/25 15:17 MB Desktop) Coordination Evaluation Upper Extremity Tests Left Finger to Nose Test Moderate Impairment Pronation/Supination Minimal Impairment Test Right Finger to Nose Test Minimal Impairment Pronation/Supination Minimal Impairment Test Lower Extremity Tests Left Heel on Carreon Test Minimal Impairment Right Heel on Carreon Test Moderate Impairment Vital Signs Comments Vital Signs Comments Orthostatic assessment with BP and HR in RUE: supine: 151/67, 76; standing 97/51, 77; standing 1' 97/53, 77. PT-OP-M Strength Start: 02/13/25 08:09 Freq: Status: Active Protocol: Document 02/27/25 14:30 MB (Rec: 02/27/25 15:17 MB Desktop) Shoulder Strength Shoulder Manual Muscle Testing Left Comments Pt has impaired left shoulder flexion and abduction in setting of left shoulder injury/repair, did not MMT left shoulder Right Flexion 4+ Good+ Abduction (C5) 4 Good Comments Pt has limited right shoulder flexion and abduction Elbow/Forearm Strength Elbow and Forearm Manual Muscle Testing Left Flexion (C6) 4+ Good+ Extension (C7) 5 Normal Right Flexion (C6) 4+ Good+ Extension (C7) 5 Normal Hip Strength Hip Manual Muscle Testing Left Flexion (L2) 4 Good Right Flexion (L2) 4+ Good+ Comments All MMT performed in sitting Knee Strength Knee Manual Muscle Testing Left Flexion (S2) 4+ Good+ Extension (L3) 5 Normal Right Flexion (S2) 4+ Good+ Extension (L3) 5 Normal Ankle/Foot Strength Ankle and Foot Manual Muscle Testing Left Dorsiflexion (L4) 4 Good Right Dorsiflexion (L4) 4 Good Toe Strength Toe Manual Muscle Testing Left Great Toe Extension 4+ Good+ Right Great Toe Extension 4+ Good+ PT-OP-Q Treatments Start: 02/13/25 08:09 Freq: Status: Active Protocol: Document 04/04/25 14:32 SP (Rec: 04/04/25 15:26 SP [id number]) Therapeutic Exercises Sitting Exercises BIG Sit to Stand Equipment Used BIG chair and black balance cushion in chair Reps/Minutes 10 reps Comments No hands 8 reps, hands last 2 reps; after earlier 30sec STS 9 re BIG Side Reach Sitting Exercise Very poor performance and requiring constant cues for Name form, start, legs, ar Side bilateral Equipment Used BIG chair Reps/Minutes 20 alternating reps Comments No improvement, cues for BIG leg back, palm up BIG finger flicks BIG floor ceiling Sitting Exercise Heavy visual reliance on PT Name Side bilateral Equipment Used BIG chair Reps/Minutes 10 reps Comments Better performance today, wider arm and open finger flicks 30 sec STS Comments 8 reps in 30 sec in BIG chair with cushion under hips today Standing Exercises BIG Adaptive Side Rock and Reach Side bilateral Equipment Used BIG chair behind Reps/Minutes 10 reps each side Comments Continuous cue feet front, BIG arms up, turn trunk, hands on lap return BIG Adaptive Rock and Reach Standing Exercise Forward rock and reach Name Side bilateral Equipment Used BIG chair contact Reps/Minutes 10 reps each side Comments Tends to bend both knees and sway hip fwd/bwd, cued wt shift f/b& arm swing BIG Adaptive Back Step Side bilateral Equipment Used BIG chair contact Reps/Minutes 10 reps each side Comments Improved hip hinge, Cues for back foot flat, BIGGER arm back BIG Adaptive Side Step Side bilateral Equipment Used BIG chair contact Reps/Minutes 10 reps each side Comments GREAT FORM!! BIG Adaptive Forward Step Standing Exercise Tends to keep narrow MONA Name Side bilateral Equipment Used BIG chair contact Reps/Minutes 10 reps each side Comments Cues for big purpose step fwd, stance return Therapeutic Activity Therapeutic Activity carrying items Name bucket with 2# DB inside Reps/Minutes 5 reps Comments carrying bucket up grassy hill, stationary balance while reaching bushes, assimulate home debudding maggie bushes and squat put in bucket, no LOB while on slight incline outside clinic. Gait Training Gait Activity BIG Walking Comments Pt has trouble following 90 BPM metronome outside on varying surfaces and cues to take bigger steps and work on arm swing, pt con't with forward posture. Gait forward and backward up and down grassy incline/decline while carrying 2# bucket in RUE. superv to SBA Neuro Re-Education Treatment Balance Activities TUG Reps/Duration avg 11 sec Comments 12 sec 11 sec 10 sec Self-Care/Home Management Treatment Education Patient Education Home Exercise Program Other Education Education to patient on importance of continued BIG exercises 1-2 /daily going forward to continue strength , balance and mobility progression, she will get out what she puts into her activity level. Discussed can order DVD videos online (HO provided early tx session) to have support follow some home knowing she likes to follow watching us in PT. She is aware that can come back for refresher if needed in the future, just ask GP for script to return to LSVT BIG for 2 week refresher, verbalized understanding. Continued education on self calibration 1-10 BIG scale for improvement in ther ex and all daily activities. PT-OP-T Assessment and Plan Start: 02/13/25 08:09 Freq: Status: Active Protocol: Document 04/04/25 14:32 SP (Rec: 04/04/25 15:26 SP [id number]) Physical Therapy Assessment Goals 4 Impairment Lack of amplitude specific HEP In Room Dining Server Goal (LTG) Pt will perform HEP with I including LSVT BIG exercises , BIG walking and functional tasks to improve amplitude and quality of movement. 03/18/25: Pt is getting exercises done once a day on non- therapy days and not always done on therapy days. 04/04/25: OVerall improvement: Pt states is performing her exercises at least 1x day, education for continued progression HEP including functional tasks and hierarchy tasks 1-2x/day from this day forward will help her continued strength and mobility. Continued minimal cues throughout ther ex for BIGGER amplitude and self calibration with all exercises and daily tasks . LTG Duration 5 weeks Improvement 04/04/25 3 Impairment 4 STS in 30 sec Residential Goal (LTG) Pt will perform at least 9 STS in 30 sec to improve functional strength with transfers. 03/18/25: Pt performs in BIG chair with balance foam cushion under hips and she performs 8 reps without UE support in 30 sec 04/04/25: GOAL MET: Pt performs in BIG chair with balance foam cushion under hips and she performs 9 reps in 30 sec LTG Duration 5 weeks GOAL MET 2 Impairment Decreased gait speed In Room Dining Server Goal (LTG) Pt will gait train at least 1,176 feet with or without AD in 6 minutes to improve community ambulation. 03/18/25: Pt gait trains 1138 feet in 6 minutes with stooped posture and decreased foot clearance and arm swing. Feet shuffle on the carpet and her steps are marching in appearance. She requires superv for safety 04/04/25: GOAL MET: 1240 ft in 6 min, Less stooped posture, cues for longer stride and increase arm swing for progressing community gait. LTG Duration 5 weeks GOAL MET over 64 ft further than goal 1 Impairment Evidence of imbalance In Room Dining Server Goal (LTG) Pt will perform TUG in less than 10 sec without AD to decrease fall risk. 03/18/25: TUG average over three is 11.66 sec 04/04/25: TUG average over three is 12, 11, 10 sec LTG Duration 5 weeks GOAL MET Progress Towards Goals Progress Towards Goals Met Goals Assessment Summary Assessment Pt met all GOALS, demonstrates gained 64 ft further during 6 min walk test for a total distance 1240 ft though minimal continued cues for upright posture, longer stride and BIGGER arm swing improves mobility to progress further distance community ambulation. Pt is able to complete sit to standing without UE support from little higher surface 19 surface demonstrating improvement in functional strength for transfers into community I. Continued education on continued HEP and functional task performance and self calibration 1-10 BIG scale for improvement in all daily activities. Pt reports in pleased with her progression with help of LSVT BIG program and even her family makes comments of seeing a change in her mobility. Physical Therapy Plan Frequency and Duration Frequency of 16 treatments Treatment Duration of 5 treatment (weeks) Plan of Care Start 02/27/25 Date Plan of Care End 04/08/25 Date Therapeutic Interventions Therapeutic Balance Training,Canalithic Repositioning,Coordination Interventions Training,Gait Training,Home Exercise Program,Manual Therapy,Neuromuscular Re-education,Patient/Caregiver Education,Self-Care/Home Management,Soft Tissue Mobilization,Taping,Therapeutic Activities,Therapeutic Exercises Modalities Cold Pack/Ice Massage,Hot Packs Discharge Physical Therapy Discharge Reasons Goals Met Discharge Comments Pt met all goals. Next Visit Focus/Plan Next Note Type Discharge Summary Next Visit Plan PT to complete DC.
--- NOTE | 2025-04-04 16:10 | PT.OPDS ---
Current Diagnoses Parkinsonism, unspecified (04/04/25) Visit Care Team Role Provider Type Thad Mclean MD Family Provider Physician Primary Care Provider Specialty: Family Practice Address: [address] [place] [address], [facility] [address], [place], [address] Email: [email or web address] Bradford MD, PHD Attending Provider Non-Staff Referring Provider Specialty: Internal Medicine Address: [address] [place] [address], [facility] [address], [place], [address] Email: Visit Number Visit Number 16 Discharge Summary PT-OP-B Current Condition Start: 02/13/25 08:09 Freq: Status: Active Protocol: Document 02/27/25 14:30 MB (Rec: 02/27/25 15:17 MB Desktop) Current Condition History of Current Condition Onset Date August 2024 Current Complaints Shuffling of feet and imbalance History of Current Pt reports a fall a year ago when she was picking [employer]. She fell backwards on a rock pile and broke her left shoulder and injured her head and had to have kenyetta. She has what is presenting as a frozen shoulder and is seeing PT at outside clinic for this and will drop to Saturdays at this time. Current complaints include shuffling feet and balance trouble. Pt lives with her and she does not drive. Her NEGRITO brings her to PT. Pt has back pain d/t arthritis of the spine and left shoulder pain. She takes carbidopa levodopa and it is helpful for her walking and balance. Pt has a cane. Pt has had about 6 falls since last summer. It seems like she loses her balance easily. She is right handed. She is I with bathing and dressing since the left shoulder injury. She feels that her right side is affected more by her PD. Treatment Goals Patient/Caregiver To improve walking and balance Goals PT-OP-C Subjective Start: 02/13/25 08:09 Freq: Status: Active Protocol: Document 04/04/25 14:32 SP (Rec: 04/04/25 15:26 SP [id number]) OP-PT Subjective Patient Comments Patient Comments Pt PT-OP-G Mobility & Gait Start: 02/13/25 08:09 Freq: Status: Active Protocol: Document 02/27/25 14:30 MB (Rec: 02/27/25 15:17 MB Desktop) OP Gait Assessment Comments Gait Comments Shuffling gait and pt does not use SPC effectively: she leaves it hanging on the desk and then tends to carry it in her right hand and not to advance it with her left foot PT-OP-H Neuro Start: 02/13/25 08:09 Freq: Status: Active Protocol: Document 02/27/25 14:30 MB (Rec: 02/27/25 15:17 MB Desktop) Coordination Evaluation Upper Extremity Tests Left Finger to Nose Test Moderate Impairment Pronation/Supination Minimal Impairment Test Right Finger to Nose Test Minimal Impairment Pronation/Supination Minimal Impairment Test Lower Extremity Tests Left Heel on Carreon Test Minimal Impairment Right Heel on Carreon Test Moderate Impairment Vital Signs Comments Vital Signs Comments Orthostatic assessment with BP and HR in RUE: supine: 151/67, 76; standing 97/51, 77; standing 1' 97/53, 77. PT-OP-M Strength Start: 02/13/25 08:09 Freq: Status: Active Protocol: Document 02/27/25 14:30 MB (Rec: 02/27/25 15:17 MB Desktop) Shoulder Strength Shoulder Manual Muscle Testing Left Comments Pt has impaired left shoulder flexion and abduction in setting of left shoulder injury/repair, did not MMT left shoulder Right Flexion 4+ Good+ Abduction (C5) 4 Good Comments Pt has limited right shoulder flexion and abduction Elbow/Forearm Strength Elbow and Forearm Manual Muscle Testing Left Flexion (C6) 4+ Good+ Extension (C7) 5 Normal Right Flexion (C6) 4+ Good+ Extension (C7) 5 Normal Hip Strength Hip Manual Muscle Testing Left Flexion (L2) 4 Good Right Flexion (L2) 4+ Good+ Comments All MMT performed in sitting Knee Strength Knee Manual Muscle Testing Left Flexion (S2) 4+ Good+ Extension (L3) 5 Normal Right Flexion (S2) 4+ Good+ Extension (L3) 5 Normal Ankle/Foot Strength Ankle and Foot Manual Muscle Testing Left Dorsiflexion (L4) 4 Good Right Dorsiflexion (L4) 4 Good Toe Strength Toe Manual Muscle Testing Left Great Toe Extension 4+ Good+ Right Great Toe Extension 4+ Good+ PT-OP-T Assessment and Plan Start: 02/13/25 08:09 Freq: Status: Active Protocol: Document 04/04/25 15:45 [facility] (Rec: 04/08/25 12:08 [facility] [id number]) Physical Therapy Assessment Goals 4 Impairment Lack of amplitude specific HEP Nurse Head Goal (LTG) Pt will perform HEP with I including LSVT BIG exercises , BIG walking and functional tasks to improve amplitude and quality of movement. 03/18/25: Pt is getting exercises done once a day on non- therapy days and not always done on therapy days. 04/04/25: OVerall improvement: Pt states is performing her exercises at least 1x day, education for continued progression HEP including functional tasks and hierarchy tasks 1-2x/day from this day forward will help her continued strength and mobility. Continued minimal cues throughout ther ex for BIGGER amplitude and self calibration with all exercises and daily tasks . LTG Duration 5 weeks Improvement 04/04/25 3 Impairment 4 STS in 30 sec Nurse Head Goal (LTG) Pt will perform at least 9 STS in 30 sec to improve functional strength with transfers. 03/18/25: Pt performs in BIG chair with balance foam cushion under hips and she performs 8 reps without UE support in 30 sec 04/04/25: GOAL MET: Pt performs in BIG chair with balance foam cushion under hips and she performs 9 reps in 30 sec LTG Duration 5 weeks GOAL MET 2 Impairment Decreased gait speed Halfway Goal (LTG) Pt will gait train at least 1,176 feet with or without AD in 6 minutes to improve community ambulation. 03/18/25: Pt gait trains 1138 feet in 6 minutes with stooped posture and decreased foot clearance and arm swing. Feet shuffle on the carpet and her steps are marching in appearance. She requires superv for safety 04/04/25: GOAL MET: 1240 ft in 6 min, Less stooped posture, cues for longer stride and increase arm swing for progressing community gait. LTG Duration 5 weeks GOAL MET over 64 ft further than goal 1 Impairment Evidence of imbalance Halfway Goal (LTG) Pt will perform TUG in less than 10 sec without AD to decrease fall risk. 03/18/25: TUG average over three is 11.66 sec 04/04/25: TUG average over three is 12, 11, 10 sec LTG Duration 5 weeks GOAL MET Assessment Summary Assessment Pt has met all goals at this time with improved gait speed and performance with BIG exercises. DC at this time to [facility] Physical Therapy Plan Discharge Physical Therapy Discharge Reasons Goals Met
== END 2025-04-11 10:13 | disposition home or self-care (01) ==
LOC: PHYS 14:30
PROVIDERS: Family Provider Family Medicine; PCP Family Medicine; Referring Provider Internal Medicine; Visit Provider Internal Medicine
DX: G20.C Parkinsonism, unspecified (principal)
CPT/HCPCS: 97110; 97112; 97116; 97163; 97530; 97535

== ENCOUNTER → 2025-06-26 11:03 | Outpatient (CLI) | payer OTHER, SELFPAY ==
[2024-06-02 10:08] VITALS: BMI 24.2
[2025-06-26 12:02] LABS: Add Manual Diff / Slide Review NO; Hematocrit 34.7 % (36-46); Hemoglobin 11.6 g/dL (12.0-16.0); Lymphocytes Absolute Auto 1700 /uL (1100-4500); Mean Corpuscular HGB Conc 33.5 % (30-36); Mean Corpuscular Hemoglobin 31.5 PG (26-34); Mean Corpuscular Volume 94.0 fL (80-100); Platelet Count 180 X10^3/uL (150-400)
[2025-06-26 12:24] LABS: Alanine Aminotransferase 9 IU/L (<35); Albumin 4.5 g/dL (3.5-5.0); Albumin Globulin Ratio 1.9 (1.0-2.8); Alkaline Phosphatase 69 U/L (38-126); Blood Urea Nitrogen 27 mg/dL (7-17); Calcium 9.7 mg/dL (8.4-10.2); Carbon Dioxide 24 mmol/L (22-32); Chloride 103 mmol/L (98-107); Estimated Glomerular Filt Rate > 60 mL/min (>60); Globulin 2.4 g/dL (1.7-4.1); Glucose 138 mg/dL (70-99); HEMOLYSIS < 15 (0-50); Potassium 5.1 mmol/L (3.4-5.1); Sodium 137 mmol/L (137-145); Total Protein 6.9 g/dL (6.3-8.2)
[2025-06-26 12:55] LABS: TSH w/ Reflex to FT4 0.94 uIU/mL (0.47-4.68)
== END ==
PROVIDERS: Family Provider Family Medicine; PCP Family Medicine; Referring Provider Family Medicine; Visit Provider Family Medicine
DX: E87.6 Hypokalemia (principal); S42.212K Unspecified displaced fracture of surgical neck of left humerus, subsequent encounter for fracture with nonunion; N39.0 Urinary tract infection, site not specified; M51.360 Other intervertebral disc degeneration, lumbar region with discogenic back pain only
CPT/HCPCS: 36415; 80053; 84443; 85025